=== PATIENT | male | born 1940 | race Caucasian/White ===

== ENCOUNTER 2016-09-04 14:15 | Emergency (ER) | payer OTHER ==
[~2016-09-04] VITALS: Ht 174 cm; Wt 88.0 kg
[~2016-09-04 14:15] MED LIST: ASPI81TA82 PO; MECL25 PO
[2016-09-04 14:20] VITALS: BP 125/90; PULSE 83; RESP 16; TEMP 98.1; O2SAT 97
[2016-09-04] MEDS ORDERED: PRAV10TA PO (14:39)
[2016-09-04] MEDS ORDERED: ASPI81TA11 PO (14:39)
[2016-09-04] MEDS ORDERED: TYLE325T PO (15:02)
--- NOTE | 2016-09-04 15:08 | PD ---
HPI Chief Complaint: Musculoskeletal Complaint Time Seen by Provider: 14:50 Travel History International Travel<30 days: No Contact w/Intl Traveler<30days: No Traveled to known affect area: No History of Present Illness HPI 76-year-old male presents to the emergency room for evaluation of left lower extremity pain for the past several weeks. It is localized to the left greater trochanter and radiates laterally down the left leg and into the foot. He has been taking Aleve twice daily without any significant relief in symptoms. Patient states pain has been gradually worsening. It is usually intermittent but it bothered him a lot last night. He [facility] this [facility] who recommended he come to the emergency room for evaluation. Pain is worsened with activity and range of motion of the knee and hip. Denies back pain, fall, trauma, or injury to the back or hip. Denies lower extremity paresthesias. PFSH Past Medical History High Cholesterol: Yes Diminished Hearing: No Immunizations Current: Yes Tetanus Vaccination: < 5 Years Past Surgical History Surgical History: No Previous Surgery Social History Alcohol Use: No Tobacco Use: No Substance Use: No Allergies-Medications (Allergen,Severity, Reaction): Coded Allergies: No Known Allergies (Unverified , 09/04/16) Reported Meds & Prescriptions Reported Meds & Active Scripts Active Tylenol (Acetaminophen) 325 Mg Tab 650 Mg PO Q6H PRN Reported Pravastatin 10 Mg Tab Unknown Dose PO HS Aspirin EC (Aspirin) 81 Mg Tabdr 81 Mg PO DAILY Review of Systems Except as stated in HPI: all other systems reviewed are Neg Physical Exam Narrative GENERAL: Well-nourished, well-developed male in no acute distress. Afebrile. Ambulatory. SKIN: Focused skin assessment warm/dry. HEAD: Normocephalic. EYES: No scleral icterus. No injection or drainage. NECK: Supple, trachea midline. No JVD or lymphadenopathy. CARDIOVASCULAR: Regular rate and rhythm without murmurs, gallops, or rubs. RESPIRATORY: Breath sounds equal bilaterally. No accessory muscle use. BACK: No CVA tenderness. No rash. No point tenderness on palpation of the spine. EXTREMITY: No bony tenderness to palpation. Full range of motion in all joints. No noticeable edema. 2+ dorsalis pedis pulse. Data Data Last Documented VS Vital Signs Date Time Temp Pulse Resp B/P Pulse Ox O2 Delivery O2 Flow Rate FiO2 09/04/16 14:34 16 09/04/16 14:20 98.1 16 125/90 97 Orders Ketorolac Inj (Toradol Inj) (09/04/16 15:15) [facility] Medical Decision Making Medical Screen Exam Complete: Yes Emergency Medical Condition: Yes Medical Record Reviewed: Yes Differential Diagnosis Sciatica versus muscle spasm versus trochanteric bursitis Narrative Course 76-year-old male presents to the emergency room for evaluation of left lower extremity pain for the past several weeks. It is gradually worsening. Patient reports that is difficult to localize and explain but describes it mostly as a burning sensation running down his entire left leg. Occasionally localizes to the greater trochanter or the left knee. He denies any trauma or injury to the back or lower extremity. Patient has been ambulatory since onset of symptoms. LLE is neurovascularly intact with 2+ dorsalis pedis pulse. Full range of motion in all joints. Given description of burning down the entire leg, this is likely a sciatica exacerbation. Patient was given Toradol in the emergency room. Discharged with prescription for Tylenol. Told to follow-up with a primary care physician if symptoms persist for outpatient imaging. Told to return sooner for worsening symptoms. He understands and agrees plan. Diagnosis Primary Impression: Sciatica of left side Referrals: [facility] Patient Instructions: General Instructions Departure Forms: Tests/Procedures Additional Instructions: Rest and drink plenty of fluids. Tried to avoid NSAIDs such as Aleve Take Tylenol as directed, as needed for pain. Apply ice to the affected area for 20 minutes at a time, as needed for pain and swelling. Follow-up with a primary care physician. Return to the emergency room for worsening symptoms. Med/Other Pt SpecificInfo: Prescription(s) given Scripts Acetaminophen (Tylenol)325 Mg Wmb280 Mg PO Q6H PRN (PAIN SCALE 1 TO 10) #21 TAB Ref 0 Prov:Leni Mckeon MD 09/04/16 Disposition: 01 DISCHARGE HOME Condition: Stable Marbella Velacso Sep 04, 2016 15:08
[2016-09-04] MEDS ORDERED: KETOROLAC TROMETHAMINE 60 MG/2 ML (IM) VIAL IM ONE (15:15)
== END 2016-09-04 15:10 | disposition home or self-care (01) ==
LOC: PHEFT 14:15
DX: M54.32 Sciatica, left side (principal); E78.00 Pure hypercholesterolemia, unspecified
CPT/HCPCS: 96372; 99284; J1885

== ENCOUNTER 2016-11-24 11:22 | Inpatient (IN) | payer OTHER ==
[~2016-11-24] VITALS: Ht 174 cm; Wt 83.0 kg
[2016-11-24] VITALS (9 sets, daily range): BP systolic 112–154; BP diastolic 73–92; PULSE 74–100; RESP 15–20; TEMP 98.2–98.7; O2SAT 94–98
[~2016-11-24 11:22] MED LIST changes: +ASPI81TA11 PO; -ASPI81TA82 PO; -MECL25 PO; +PRAV10TA PO; +TYLE325T PO
[2016-11-24 11:58] LABS: AUTOMATED NEUTROPHIL # 6.7 TH/MM3 (1.8-7.7); BASOPHIL # 0.2 TH/MM3 (0-0.2); BASOPHIL % 1.9 % (0.0-2.0); EOSINOPHIL # 0.1 TH/MM3 (0-0.4); EOSINOPHIL % 0.7 % (0.0-4.0); HEMATOCRIT 43.1 % (39.0-51.0); LYMPH % 11.5 % (9.0-44.0); MEAN CELL VOLUME 84.7 FL (80.0-100.0); MEAN CORPUSCULAR HEMOGLOBIN 28.2 PG (27.0-34.0); MEAN CORPUSCULAR HGB CONC 33.3 % (32.0-36.0); MONO % 7.7 % (0.0-8.0); NEUT % 78.2 % (16.0-70.0); PLATELET COUNT 284 TH/MM3 (150-450); RED BLOOD COUNT 5.09 MIL/MM3 (4.50-5.90); RED CELL DISTRIBUTION WIDTH 13.2 % (11.6-17.2); WHITE BLOOD COUNT 8.7 TH/MM3 (4.0-11.0)
[2016-11-24] MEDS ORDERED: SODIUM CHLORIDE 0.9% FLUSH 10 ML FLUSH IVF PRN (12:00)
[2016-11-24] MEDS ORDERED: ASPIRIN 81 MG CHEW TAB PO ONE (12:00)
--- NOTE | 2016-11-24 12:00 | PD ---
HPI Chief Complaint: Chest Pain Time Seen by Provider: 11:45 Travel History International Travel<30 days: No Contact w/Intl Traveler<30days: No Traveled to known affect area: No History of Present Illness HPI 76-year-old male with history of hyperlipidemia here for evaluation of chest pain and generalized malaise. Symptoms started this morning after waking up. He has had intermittent left-sided chest pain which she describes as sharp/ache/ dull. There are no modifying factors to this pain. He states that when he first experienced the pain this morning he became diaphoretic. He reports that when he stands up he feels lightheaded. He denies any known history of cardiac disease. He is a nonsmoker. He is unsure of any family history of cardiac disease. He denies fevers. No cough or upper respiratory symptoms. No history of DVT or PE. No vomiting or diarrhea. No paresthesias or motor deficits. He is currently chest pain free. PFSH Past Medical History High Cholesterol: Yes Diminished Hearing: No Immunizations Current: Yes Social History Alcohol Use: No Tobacco Use: No Substance Use: No Allergies-Medications (Allergen,Severity, Reaction): Coded Allergies: No Known Allergies (Unverified , 11/24/16) Reported Meds & Prescriptions Reported Meds & Active Scripts Active Reported Pravastatin 10 Mg Tab Unknown Dose PO HS Review of Systems Except as stated in HPI: all other systems reviewed are Neg Physical Exam Narrative GENERAL: Well-developed, well-nourished, awake, alert, no apparent distress. SKIN: Focused skin assessment warm/dry. No pallor. HEAD: Atraumatic. Normocephalic. EYES: Pupils equal and round. No scleral icterus. No injection or drainage. ENT: Mucous membranes pink and moist. NECK: Trachea midline. No JVD. CARDIOVASCULAR: Regular rate and rhythm. Distal pulses brisk and equal bilaterally. RESPIRATORY: No accessory muscle use. Clear to auscultation. Breath sounds equal bilaterally. GASTROINTESTINAL: Abdomen soft, non-tender, nondistended. MUSCULOSKELETAL: No obvious deformities. No clubbing. No cyanosis. No edema. NEUROLOGICAL: Awake and alert. No obvious cranial nerve deficits. Motor grossly within normal limits. Normal speech. PSYCHIATRIC: Appropriate mood and affect; insight and judgment normal. Data Data Last Documented VS Vital Signs Date Time Temp Pulse Resp B/P (MAP) Pulse Ox O2 Delivery O2 Flow Rate FiO2 8/22/17 12:47 76 20 145/92 (109) 98 Nasal Cannula 2.00 11/24/16 11:27 98.2 Orders Orders Basic Metabolic Panel (Bmp) (11/24/16 11:49) Ckmb (Isoenzyme) Profile (11/24/16 11:49) Complete Blood Count With Diff (11/24/16 11:49) Magnesium (Mg) (11/24/16 11:49) Prothrombin Time / Inr (Pt) (11/24/16 11:49) Act Partial Throm Time (Ptt) (11/24/16 11:49) Troponin I (11/24/16 11:49) Chest, Single Ap (11/24/16 11:49) Ecg Monitoring (11/24/16 11:49) Bilateral Bp Monitoring (11/24/16 11:49) Iv Access Insert/Monitor (11/24/16 11:49) Oximetry (11/24/16 11:49) Oxygen Administration (11/24/16 11:49) Aspirin Chew (Aspirin Chew) (11/24/16 12:00) Sodium Chloride 0.9% Flush (Ns Flush) (11/24/16 12:00) Urinalysis - C+S If Indicated (11/24/16 11:49) CKMB (11/24/16 11:50) CKMB% (11/24/16 11:50) Heparin Inj (Heparin Inj) (11/24/16 13:00) Heparin Inj (Heparin Inj) (11/24/16 19:00) Heparin Inj (Heparin Inj) (11/24/16 19:00) Heparin-D5w 25,000 U/250 Ml (Heparin-D5w (11/24/16 13:00) Act Partial Throm Time (Ptt) (11/24/16 12:46) Prothrombin Time / Inr (Pt) (11/24/16 12:46) Cbc No Diff, Includes Plts (11/24/16 12:46) Cbc No Diff, Includes Plts (11/27/16 06:00) Act Partial Throm Time (Ptt) (11/24/16 19:46) Occult Blood (Hemoccult) Stool (11/24/16 12:46) Cardiac Catheterization (11/24/16 ) Consent (11/24/16 12:47) ^ Preps (11/24/16 12:47) ^ Insert Iv (11/24/16 12:47) Diet Npo Except Meds (11/24/16 Lunch) Sodium Chlor 0.9% 1000 Ml Inj (Ns 1000 M (11/24/16 12:47) Aspirin (Aspirin) (11/24/16 13:00) Fentanyl Inj (Fentanyl Inj) (11/24/16 13:00) [employer] General Manager / Telemetry [email or web address] (11/24/16 12:47) Labs Laboratory Tests Test 11/24/16 11:50 White Blood Count 8.7 TH/MM3 Red Blood Count 5.09 MIL/MM3 Hemoglobin 14.4 GM/DL Hematocrit 43.1 % Mean Corpuscular Volume 84.7 FL Mean Corpuscular Hemoglobin 28.2 PG Mean Corpuscular Hemoglobin Concent 33.3 % Red Cell Distribution Width 13.2 % Platelet Count 284 TH/MM3 Mean Platelet Volume 9.3 FL Neutrophils (%) (Auto) 78.2 % Lymphocytes (%) (Auto) 11.5 % Monocytes (%) (Auto) 7.7 % Eosinophils (%) (Auto) 0.7 % Basophils (%) (Auto) 1.9 % Neutrophils # (Auto) 6.7 TH/MM3 Lymphocytes # (Auto) 1.0 TH/MM3 Monocytes # (Auto) 0.7 TH/MM3 Eosinophils # (Auto) 0.1 TH/MM3 Basophils # (Auto) 0.2 TH/MM3 CBC Comment AUTO DIFF Differential Total Cells Counted 100 Neutrophils % (Manual) 79 % Lymphocytes % 15 % Monocytes % 5 % Eosinophils % 1 % Neutrophils # (Manual) 6.9 TH/MM3 Differential Comment FINAL DIFF MANUAL Prothrombin Time 11.1 SEC Prothromb Time International Ratio 1.0 RATIO Activated Partial Thromboplast Time 28.4 SEC Blood Urea Nitrogen 20 MG/DL Creatinine 0.94 MG/DL Random Glucose 103 MG/DL Calcium Level 9.3 MG/DL Magnesium Level 2.4 MG/DL Sodium Level 137 MEQ/L Potassium Level 4.3 MEQ/L Chloride Level 103 MEQ/L Carbon Dioxide Level 26.2 MEQ/L Anion Gap 8 MEQ/L Estimat Glomerular Filtration Rate 78 ML/MIN Total Creatine Kinase 186 U/L Creatine Kinase MB 1.8 NG/ML Troponin I 0.22 NG/ML MDM Medical Decision Making Medical Screen Exam Complete: Yes Emergency Medical Condition: Yes Interpretation(s) EKG: Sinus, rate 77, leftward axis, LVH, slight ST depressions in lateral leads likely secondary to LVH, no ST segment elevations. Differential Diagnosis ACS, pneumothorax, pericarditis, PE, pneumonia, metabolic abnormality, anemia, UTI Narrative Course Vital signs show heart rate 80, blood pressure 146/91, pulse ox 98% on room air , oral temp of 98.2F. CBC shows WBC 8.7, hemoglobin 14.4, hematocrit 43.1, platelets 284, neutrophils 78.2%. BMP is unremarkable. Troponin is 0.22. Chest x-ray interpreted by me shows no infiltrate, no free air, no pneumothorax. Patient was given a full aspirin shortly after arriving to the emergency department. He has been chest pain-free while in the emergency department. Case discussed with on-call paint specialist Dr. Bueno. Patient will be started on a heparin drip and transferred to the [facility] for cardiac cath today. Case discussed with hospitalist Dr. Cervantes who will admit the patient to her service. Critical Care Narrative Aggregate critical care time was 30 minutes. Time to perform other separately billable procedures was not included in the critical care time. My time did not include minutes spent treating any other patients simultaneously or on activities that did not directly contribute to the patient's treatment. The services I provided to this patient were to treat and/or prevent clinically significant deterioration that could result in: , permanent disability, cardiac arrest, worsening clinical condition I provided critical care services requiring my management, as noted below: Chart data review, documentation time, medication orders and management, vital sign assessments/reviewing monitor data, ordering and reviewing lab tests, ordering and interpreting/reviewing x-rays and diagnostic studies, care of the patient and discussion of the patient with the admitting physicians. Diagnosis Primary Impression: NSTEMI (non-ST elevated myocardial infarction) Additional Impression: Chest pain Qualified Codes: R07.9 - Chest pain, unspecified Admitting Information Admitting Physician Requests: it Remberto Tanner MD Nov 24, 2016 12:00
[2016-11-24 12:05] LABS: HEMO FLAGS AUTO DIFF
[2016-11-24 12:06] LABS: CHLORIDE 103 MEQ/L (98-107); POTASSIUM 4.3 MEQ/L (3.5-5.1); SODIUM (NA) 137 MEQ/L (136-145)
[2016-11-24 12:11] LABS: ANION GAP 8 MEQ/L (5-15); APTT (PATIENT) 28.4 SEC (24.3-30.1); BICARBONATE 26.2 MEQ/L (21.0-32.0); BLOOD UREA NITROGEN 20 MG/DL (7-18); MAGNESIUM 2.4 MG/DL (1.5-2.5); PROTHROMBIN TIME - PATIENT 11.1 SEC (9.8-11.6)
[2016-11-24 12:14] LABS: GLOMERULAR FILTRATION RATE 78 ML/MIN (>89)
[2016-11-24 12:18] LABS: CREATINE KINASE 186 U/L (39-308)
[2016-11-24 12:26] LABS: EOSINOPHILS 1 % (0-4); NEUTROPHIL # MANUAL DIFF 6.9 TH/MM3 (1.8-7.7); POLYS (SEG NEUTROPHILS) 79 % (16-70); WBC DIFF SAMPLE 100
[2016-11-24 12:27] LABS: SCAN/DIFF FINAL DIFF MANUAL
[2016-11-24 12:30] LABS: CKMB 1.8 NG/ML (0.5-3.6)
--- NOTE | 2016-11-24 12:50 | RADRPT ---
EXAM DATE/TIME: 11/24/2016 12:21 [facility] COMPARISON: CHEST SINGLE AP, October 07, 2012, 10:15. INDICATIONS : Chest pain/pressure. MEDICAL HISTORY : Hypercholesterolemia. SURGICAL HISTORY : None. ENCOUNTER: Initial ACUITY: 2 days PAIN SCORE: 8/10 LOCATION: Left chest FINDINGS: A single portable frontal view the chest is lordotic in position. Heart is mildly enlarged and stable . There is a lobulated contour to the right hilum which is a new finding from the prior study. Many l ungs are clear. No effusions. A degenerative lumbar spine. CONCLUSION: 1. Somewhat lobular contour to the right hilum. Suggest PA and lateral views of the chest to further evaluate. 2. Mild cardiomegaly. Renzo Centeno Jr., MD on November 24, 2016 at 12:47 Board Certified Radiologist. This report was verified electronically.
[2016-11-24] MEDS ORDERED: ASPIRIN 325 MG TAB PO SCH (13:00)
[2016-11-24] MEDS ORDERED: HEPARIN SODIUM - IV 10,000 UNITS/10 ML VIAL IV ONE (13:00)
[2016-11-24] MEDS ORDERED: HEPARIN-D5W 25,000 U/250 ML 250 ML IV PRN (13:00)
[2016-11-24] MEDS ORDERED: SODIUM CHLORIDE 0.9% FLUSH 10 ML FLUSH IV FLUSH PRN (13:45)
[2016-11-24] MEDS ORDERED: IOHEXOL 350 MG/ML 50 ML BTL (for Cath Lab) OTHER ONE (15:15)
[2016-11-24] MEDS ORDERED: HEPARIN-NS/PF INJ 1,000 ML ONE (15:21)
--- NOTE | 2016-11-24 15:54 | MB ---
cc: CAMERON ROBISON MD DATE OF CONSULTATION: 11/24/2016 REASON FOR CONSULTATION: Non-ST elevation myocardial infarction. HISTORY OF PRESENT ILLNESS: Mr. Alvarez is a pleasant 76 year-old who presented with episodes of chest pain. He reports that he had a left-sided chest discomfort that lasted several minutes. There were no real precipitating or relieving factors. It was associated with diaphoresis. When he stood he became a bit light headed. The patient is currently pain free. He has not had prior episodes. PAST MEDICAL HISTORY: Past medical history significant for hyperlipidemia, Murmur, recent esophagogastroduodenoscopy. FAMILY HISTORY: Negative for coronary artery disease. SOCIAL HISTORY: The patient is and does not drink or smoke. REVIEW OF SYSTEMS Except as mentioned in HPI all 12 systems are negative. PHYSICAL EXAMINATION: VITAL SIGNS: Vital signs are 76, 20, 145/92. IN GENERAL: In general he is a well appearing man who is in no apparent distress. NECK: His neck is free from jugular venous distention. LUNGS: The lungs are bilaterally clear to auscultation. CARDIOVASCULAR SYSTEM: He has harsh systolic murmur, no rubs or gallops were appreciated. ABDOMEN: The abdomen is soft. EXTREMITIES: The extremities are free from edema. LABORATORY VALUES: Significant for a creatinine 0.94 and a troponin of 0.22. EKG shows normal sinus rhythm with ST depression concerning for ischemia. IMPRESSION Non-ST elevation SD - the patient does have elevated troponin, chest pain and EKG changes all concerning for an acute ischemic event. He is currently pain-free. At this point the patient is felt to be best suited by further evaluation with a cardiac catheterization. Murmur- His troponin and ECG's are felt too prohibitive for this stress testing. Thus at this point we have discussed other risks, benefits and alternatives to catheterization and he and his family are agreeable despite several percent risk for , SD, CVA and other. Hyperlipidemia - the patient will have his lipids checked. Hypertension - the patient has diastolic has been a bit high. He will be started on beta-magali for his hypertension and non-ST elevation SD. Cameron Robison M.D. KALI/patrick Quinteros: 11/24/2016/3:15 PM /3:25 PM UBALDO
--- NOTE | 2016-11-24 16:26 | CATHPROC ---
[employer] HIS Report Study Information Study Number Admission Scheduled Start Study Start [id number] Nov 24 2016 11:22AM 11/24/2016 Nov 24 2016 3:13PM [place] Service Cardiac Catheterization Admit Source Facility Department Emergency department [facility] - Strainer Cleaner Physician and Clinical Staff Initial MD Bueno, Mera Machine Adjuster Leader Chai Myers,CEASAR Recorder Lorraine Sandoval,RT(R) (BS) Scrub Gerald Taylor,RT(R) Procedures Performed Procedure Location (Site) Vessel Name Coronary Angiograms LCA Left Coronary Coronary Angiograms RCA Right Coronary L Heart Cath Wire insertion Fem Art (right) Femoral Art Equipment Time Hearing Aid Technician Description Size Mfg Part Number Used/Scraped TRANSDUCER, TRCore InformaticsAVE [id number] 15:15 PATHAK UREÑA * Used W/STOCKCOCK *[id number] [id number] *[id number] *[id number] *[id number] WIRE, HYDROSTEER 150CM [id number] 16:08 DAIG/ST. GAEL MEDICAL 150CM Used ANGLED GLIDE *[id number] 15:15 MED[employer] PACK, CCL CUSTOM * Used *[id number] 15:15 eEvent PACER PEN, SKIN DUAL W/ RULER * Used *[id number] 15:15 [employer] SHEATH, FR4.5 PRELUDE 11CM FR 4.5 Used [id number] 15:15 [employer] WIRE, 3MMJ .035 180CM 180CM Used *[id number] 15:51 [employer] WIRE, 3MMJ .035 180CM 180CM Used *[id number] 15:42 [employer] WIRE, EXCHANGE 260CM .035 260CM Used *[id number] 15:49 [employer] WIRE, STRAIGHT TIP .035 * Used *[id number] 15:51 [employer] WIRE, STRAIGHT TIP .035 * Used *[id number] 15:15 NAMIC CONTRAST CONTROLLER, SPIKE * Used *[id number] 15:15 NAMIC MANIFOLD, 4 PORT * Used *[id number] 15:15 NYCOMED OMNIPAQUE, 350 MG, 150ML 150ML [id number] Used [id number] 15:15 [employer] BLANKET,WARM AIR CCL * Used *[id number] 15:15 [facility] BLANKET,WARM AIR CCL * Used *[id number] Equipment Model, Serial, Lot Number and Expiration Data Description Model Number Serial Number Lot Number Expiration Date WIRE, EXCHANGE 260CM .035 [id number] 10-02-2018 WIRE, HYDROSTEER 150CM [id number] 09-03-2019 ANGLED GLIDE History: Current Medications Medication Dosage/Unit Route Frequency Last Date/Time Taken ASA History: Allergies Allergy Reaction No Known Allergies History: Risk Factors Family History of Hypertension Dyslipidemia Previous KS Previous Heart Failure Premature CAD Yes Yes No No No Prior Valve Prior PCI Prior CABG Surgery No No No Cerebrovascular Peripheral Artery Chronic Lung On Dialysis Diabetes Disease Disease Disease No No No No No History: Symptoms/Diagnosis Selection Items Chest pain SOB History: Stress Tests Stress or Imaging Studies Performed No History: Other Current Smoker No Labs Hgb (g/dl) Hct (%) WBC (l/cumm) Platelets (thousands) 11.60-17.00 35.00-51.00 4.00-11.00 150.00-450.00 14.4 43.1 8.7 284 Glucose (mg/dl) BUN (mg/dl) Creatinine (mg/dl) BUN:Creatinine (1:x) 74.00-106.00 7.00-18.00 0.50-1.30 10.00-20.00 103 20 0.9 22.2 Na (meq/l) K (meq/l) 136.00-145.00 3.50-5.10 137 4.3 INR (PTT:PT) 0.90-1.10 1 Troponin I (ng/ml) CPK-MB (ng/ML) 0.02-0.05 0.50-3.60 0.22 Not Drawn Medication Medication Total Dose (Bolus/Oral) Medication Total Dosage/Unit 1% XYLOCAINE 20 mL FENTANYL 50 mcg Medications (Bolus/Oral) Medication Time Given Dosage/Unit Administered By Reason FENTANYL 11/24/2016 3:35:18 PM 50 mcg Chai Myers Patient arrived on 50 mcg FENTANYL given by Chai Myers, RN in Left Antecubital via Peripheral IV. 1% XYLOCAINE 11/24/2016 3:35:24 PM 20 mL Mera Bueno Patient arrived on 20 mL 1% XYLOCAINE given by Mera Bueno in Right Groin via Subcutaneous. Medication (Drip) Medication Time Given Dosage/Unit Concentration/Unit Diluent (ml) Solution HEPARIN DRIP STOPPED 11/24/2016 3:10:16 PM 0 units/hr 0 Patient arrived on 0 units/hr HEPARIN DRIP STOPPED. Pump/Drip Flow = 0 ml/hr using [Solution Name]. Chronological Log Time Study Chronological Log 15:10:16 Patient arrived on 0 units/hr HEPARIN DRIP STOPPED. Pump/Drip Flow = 0 ml/hr using [Soluti on Name]. 15:13:35 Patient arrived via Bed. 15:13:36 Patient Name, D.O.B, / Armband Verified By R.N. 15:13:37 Consent signed by the physician and the patient and verified by the Strainer Cleaner staff. 15:13:37 Pre-op and post- op instructions given; patient acknowledges understanding of instructions . 15:13:38 Verbal Stimulation=2 Physical Stimulation=2 Airway=2 Respiration=2 TOTAL=8. (0=absent, 1=l imited, 2=present) 15:15:15 Presedation assessment performed by Strainer Cleaner RN. 15:15:18 Patient has been NPO for Less than 6Hrs. 15:15:18 Skin Breakdown-none per patient. 15:15:31 Patient Warmer Placed on the Table. 15:15:33 Delmis Prominences Protected 15:15:35 A # 20 IV was noted in the Antecubital (left). Grade = 0 Vitals capture started with the following parameters, Patient=Adult, Interval=5 min, Initial P thtxlrs=674 mmHg, 15:20:43 Deflation Rate=5 mmHg, Cuff placed on Right Arm 15:21:21 JNXH=214/90 mmhg, SpO2=95.0 %, Pain=0, Esau=10, Cates=2 15:23:20 HR=78 bpm, BKND=851/96 mmhg, SpO2=94.0 %, Resp=11 B/min, Pain=0, Esau=10, Cates=2 15:25:21 HR=76 bpm, JCGY=860/95 mmhg, SpO2=93.0 %, Resp=7 B/min, Pain=0, Esau=10, Cates=2 15:27:19 HR=77 bpm, UGVT=862/86 mmhg, SpO2=96.0 %, Resp=13 B/min, Pain=0, Esau=10, Cates=2 15:29:05 Bilateral groins prepped with 2% chlorhexidine, and with a 3 min. waiting time. 15:29:49 HR=80 bpm, OSWN=248/89 mmhg, SpO2=95.0 %, Resp=11 B/min, Pain=0, Esau=10, Cates=2 15:31:23 HR=77 bpm, MDZP=452/87 mmhg, SpO2=95.0 %, Resp=11 B/min, Pain=0, Esau=10, Cates=2 15:33:22 HR=78 bpm, FVUC=266/96 mmhg, SpO2=94.0 %, Resp=12 B/min, Pain=0, Esau=10, Cates=2 Time Out. Correct patient, correct procedure,correct physician, power injector loaded with con trast with surgical team 15:33:59 present. Time Out Concurred by MD, individual staff in procedure 15:34:12 Case Start 15:34:24 Vitals capture stopped. Vitals capture started with the following parameters, Patient=Adult, Interval=5 min, Initial Pr antmtm=846 mmHg, 15:34:33 Deflation Rate=5 mmHg, Cuff placed on Right Arm 15:34:56 Pressure channel 1 zeroed. 15:35:10 HR=77 bpm, RKXJ=054/86 mmhg, SpO2=95.0 %, Resp=24 B/min, Pain=0, Esau=10, Cates=2 15:35:18 Patient arrived on 50 mcg FENTANYL given by Chai Myers, RN in Left Antecubital via Jazmine pheral IV. 15:35:24 Patient arrived on 20 mL 1% XYLOCAINE given by Mera Bueno in Right Groin via Subcuta neous. 15:35:33 Reference ECG taken 15:36:58 Access site was Right Femoral Artery. 15:37:03 A SHEATH, FR4.5 PRELUDE 11CM FR 4.5 was advanced into the Fem Art (right) using the Percuta neous technique. Recorded Pressure: Ao, HR=76, Condition=Condition 1 15:37:45 (Aorta) Ao 164/77/108 15:37:53 An injection in the Fem Art (right) was made through the SHEATH, FR4.5 PRELUDE 11CM FR 4.5. 15:38:42 Activated Clotting Time Drawn A PIGTAIL ANG. INFINITI CATHETER FR 4 was advanced over a wire. OMNIPAQUE, 350 MG, 150ML 150ML was used 15:40:13 for injections. 15:40:14 HR=73 bpm, BXBH=055/93 mmhg, SpO2=93.0 %, Resp=11 B/min, Pain=0, Esau=10, Cates=2 15:41:57 ACT (Normal Range 90-180) = 156 15:43:51 Wire removed 15:43:55 A WIRE, STRAIGHT TIP .035 * was inserted via Fem Art (right). 15:45:11 HR=74 bpm, UMCK=780/89 mmhg, SpO2=92.0 %, Resp=16 B/min, Pain=0, Esau=10, Cates=2 15:46:31 Wire removed 15:48:38 A WIRE, STRAIGHT TIP .035 * was inserted via Fem Art (right). 15:49:40 Wire removed 15:49:55 A WIRE, 3MMJ .035 180CM 180CM was inserted via Fem Art (right). 15:50:12 HR=73 bpm, YGLO=871/95 mmhg, SpO2=93.0 %, Resp=17 B/min, Pain=0, Esau=10, Cates=2 15:51:15 Wire removed 15:51:19 A WIRE, 3MMJ .035 180CM 180CM was inserted via Fem Art (right). 15:51:35 Catheter was removed A 3DRC INFINITI CATHETER FR 4 was advanced over a wire. OMNIPAQUE, 350 MG, 150ML 150ML was used for 15:51:36 injections. 15:52:52 Wire removed 15:52:54 A WIRE, STRAIGHT TIP .035 * was inserted via Fem Art (right). 15:55:03 Wire removed 15:55:13 HR=71 bpm, UQTU=360/95 mmhg, SpO2=96.0 %, Resp=7 B/min, Pain=0, Esau=10, Cates=2 15:56:10 A WIRE, 3MMJ .035 180CM 180CM was inserted via Fem Art (right). 15:57:29 The RCA was injected and visualized at various angles. OMNIPAQUE, 350 MG, 150ML 150ML used . After removing the current catheter a JL 4.0 INFINITI CATHETER FR 4 was advanced over a WIRE, 3 MMJ .035 180CM 15:58:27 180CM. 16:00:14 HR=75 bpm, CVOA=004/90 mmhg, SpO2=94.0 %, Resp=15 B/min, Pain=0, Esau=10, Cates=2 16:01:09 The LCA was injected and visualized at various angles. OMNIPAQUE, 350 MG, 150ML 150ML used . 16:05:17 HR=77 bpm, AXTL=954/87 mmhg, SpO2=95.0 %, Resp=12 B/min, Pain=0, Esau=10, Cates=2 After removing the current catheter a 3DRC INFINITI CATHETER FR 4 was advanced over a WIRE, HY DROSTEER 150CM 16:06:41 ANGLED GLIDE 150CM. 16:09:18 Wire removed 16:10:08 A WIRE, HYDROSTEER 150CM ANGLED GLIDE 150CM was inserted via Fem Art (right). 16:10:14 HR=74 bpm, TTQM=876/83 mmhg, SpO2=94.0 %, Resp=10 B/min, Pain=0, Esau=10, Cates=2 16:10:41 Catheter was removed 16:10:42 Wire removed 16:10:55 Case End 16:11:01 Catheter(s) removed without difficulty 16:11:25 No case complications noted. 16:11:27 Cine recording checked. 16:11:36 Bedside Report will be given. 16:11:38 Contrast Scanned 16:11:40 A Left Heart Cath was performed. 16:13:49 Sheath removed; pressure applied to access site. 16:15:15 HR=76 bpm, PTTO=591/92 mmhg, SpO2=95.0 %, Resp=13 B/min, Pain=0, Esau=10, Cates=2 16:20:18 HR=83 bpm, IASA=218/84 mmhg, SpO2=94.0 %, Resp=7 B/min, Pain=0, Esau=10, Cates=2 16:24:38 Sterile dressing applied to site 16:25:17 HR=77 bpm, KDCF=789/85 mmhg, SpO2=94.0 %, Resp=29 B/min, Pain=0, Esau=10, Cates=2 16:25:30 Vitals capture stopped. 16:28:33 Patient moved to stretcher End Study - Contrast Media Used In Study Contrast Total Opened (mL) Total Used (mL) Total Wasted (mL) Omnipaque 50 50 0 End Study - Maximum Contrast Load Max Contrast Load (mL) 477.8 End Study - Radiation Exposure Fluoro Time (minutes) 8.7 End Study - Sheaths Sheaths Pulled By Sheath Hold Time (min) Gerald Taylor End Study - Patient Disposition Complications Transferred To Interventional Outcome No Strainer Cleaner Holding No attempt made
[2016-11-24 16:28] LABS: TOTAL BILIRUBIN ADULT 0.7 MG/DL (0.2-1.0)
[2016-11-24 16:30] LABS: INDIRECT BILIRUBIN 0.6 MG/DL (0.0-0.8)
[2016-11-24] MEDS ORDERED: SODIUM CHLOR 0.9% 1000 ML INJ 1,000 ML IV SCH (16:45)
[2016-11-24] MEDS ORDERED: METOCLOPRAMIDE HCL 10 MG/2 ML VIAL IV PRN (16:45)
[2016-11-24] MEDS ORDERED: ATROPINE SULFATE 1 MG/ML VIAL IV PRN (16:45)
[2016-11-24] MEDS ORDERED: SODIUM CHLOR 0.9% 250 ML INJ 250 ML IV PRN (16:45)
[2016-11-24] MEDS ORDERED: ONDANSETRON HCL 4 MG/2 ML VIAL IV PRN (16:45)
[2016-11-24] MEDS ORDERED: MISC INFORMATION XX ONE (16:45)
--- NOTE | 2016-11-24 16:48 | MA ---
cc: CAMERON ROBISON MD DATE 11/24/2016 INDICATION Non-ST elevation myocardial infarction. PROCEDURES Selective coronary angiography and attempted left heart catheterization. DETAILS OF THE PROCEDURE The patient gave informed consent. He was prepped in the usual sterile fashion. A subcutaneous injection of lidocaine was made in the right inguinal area. Access was achieved into the right femoral artery and a 4 Mauritanian sheath was inserted. An angiogram was obtained through the sheath. An angled 4 Mauritanian pigtail catheter was utilized to initially traverse a somewhat tortuous iliac system and I was subsequently unable to cross the aortic valve with the standard J wire. I did try a straight tip wire. We exchanged out for the 3DRC catheter and again both wires were utilized to attempt to cross the LV. It was very calcific. The 3DRC then did engage the RCA. Angiograms were obtained. We exchanged out for a JL4 in an over the wire manner and then were able to obtain the left coronaries. I did attempt again with the 3DRC and the angled glide wire, however, this was as well not fruitful. The case was subsequently terminated. FINDINGS CORONARY ANATOMY Left main - this vessel has mild disease of about 10%. It branches into an LAD, ramus and circumflex. LAD - this vessel has mild disease proximally of about 10%. In the mid portion there is a 30-50% stenosis. It is not hazy and does appear actually calcific. It is at the bifurcation of the diagonal which is a moderate to large size vessel. The LAD itself does wrap around the apex and is free of other disease distally. Ramus - this is a moderate size vessel that is free of any significant disease. Circumflex - this is a non dominant vessel that gives rise to a moderate size OM. It has mild luminal irregularities. Right coronary artery - this is a hyper dominant vessel that has about 10-20% diffuse disease. CONCLUSIONS 1. Moderate disease of the LAD that will be medically managed. 2. Aortic valve calcification and likely severe aortic stenosis. An echocardiogram will be obtained for further evaluation of this and the ejection fraction. 3. Cameron Robison M.D. KALI/HUBER /4:17 PM /4:23 PM MTDD
--- NOTE | 2016-11-24 18:45 | HHI.HP ---
[facility] Admission Diagnosis NSTEMI, Chest pain Diagnoses: Chief Complaint: Chest pain Travel History International Travel<30 Days: No Contact w/Intl Traveler <30 Da: No Traveled to Known Affected Are: No History of Present Illness Written by Audie Morales, acting as scribe for Dr. Dupont on 11/24/16 at 18: 30. Patient is a 76-year-old male with primary medical history of hyperlipidemia who came into the hospital for complaints of chest pain. Patient states that he woke up sweating and was feeling "yucky." States he feels like he has "flu type of feeling." States when he got up he got dizzy. States he has a little bit of chest pain midsternal area, does not radiate anywhere, it is unrelieved by rest, not aggravated by any movement. Patient was then taken to have cardiac catheterization done by Dr. Bueno. Patient states he is feeling a lot better now. Reports He took about 3 aspirins when he was in the ED. He denies any chest pain, palpitations, dizziness, headache. States he is only taking aspirin, [facility]. Denies any other medical issues. Denies pain and discomfort. Denies SOB/ dyspnea. Denies fevers, chills, n/v/d. Denies dysuria. Review of Systems Except as stated in HPI: all other systems reviewed are Neg Past Family Social History Past Medical History Dyslipidemia Past Surgical History None Reported Medications Reported Meds & Active Scripts Active Reported Pravastatin 10 Mg Tab Unknown Dose PO HS Allergies: Coded Allergies: No Known Allergies (Unverified , 11/24/16) Active Ordered Medications Current Medications Medications (Trade) Dose Ordered Sig/Aleksandra Route Start Time Stop Time Status Last Admin Sodium Chloride 1,000 ml @ 100 mls/hr Q10H IV 11/24/16 12:47 11/29/16 12:46 (Aspirin) 325 mg LIBRARIAN ASSISTANT PO 11/24/16 13:00 11/28/16 12:59 (fentaNYL INJ) 50 mcg LIBRARIAN ASSISTANT IV 11/24/16 13:00 11/28/16 12:59 (NS Flush) 2 ml BID IV FLUSH 11/24/16 21:00 (NS Flush) 2 ml UNSCH PRN IV FLUSH 11/24/16 13:45 (Ecotrin Ec) 325 mg DAILY PO 11/25/16 09:00 (Coreg) 3.125 mg BID PO 11/24/16 21:00 (Lipitor) 10 mg HS PO 11/24/16 21:00 Sodium Chloride 1,000 ml @ 100 mls/hr Q10H IV 11/24/16 16:45 11/24/16 22:44 11/24/16 17:52 (Atropine Inj) 0.5 mg UNSCH PRN IV 11/24/16 16:45 Sodium Chloride 250 ml @ 500 mls/hr ONCE PRN IV 11/24/16 16:45 11/25/16 16:44 (Reglan Inj) 10 mg Q4H PRN IV 11/24/16 16:45 (Zofran Inj) 4 mg Q4H PRN IV 11/24/16 16:45 Family History Denies family medical history of heart disease. Father had colon cancer. Social History Occasional alcohol use Never smoker Denies illicit drug use Physical Exam Vital Signs Vital Signs Date Time Temp Pulse Resp B/P (MAP) Pulse Ox O2 Delivery O2 Flow Rate FiO2 11/24/16 17:45 98.7 83 19 136/88 (104) 96 11/24/16 17:23 96 Room Air 11/24/16 13:21 11/24/16 12:47 76 20 145/92 (109) 98 Nasal Cannula 2.00 11/24/16 11:56 Nasal Cannula 2.00 11/24/16 11:56 78 20 136/91 (106) 96 154/89 (110) 11/24/16 11:56 97 11/24/16 11:27 98.2 80 15 146/91 (109) 98 Physical Exam GENERAL: This is a well-nourished, well-developed patient, in no apparent distress. SKIN: Warm and dry. HEAD: Normocephalic. No temporal or scalp tenderness. EYES: Pupils equal round and reactive. Extraocular motions intact. No scleral icterus. No injection or drainage. ENT: Nose without bleeding. Throat without erythema. Uvula midline. Airway patent. NECK: Trachea midline. CARDIOVASCULAR: Regular rate and rhythm with faint systolic murmurs, no gallops , or rubs. RESPIRATORY: Clear to auscultation. Breath sounds equal bilaterally. No wheezes , rales, or rhonchi. GASTROINTESTINAL: Abdomen soft, non-tender, nondistended. No guarding. Bowel sounds active 4. MUSCULOSKELETAL: Extremities without clubbing, cyanosis, or edema. No joint tenderness, effusion, or edema noted. No calf tenderness. NEUROLOGICAL: Awake and alert. Cranial nerves II through XII intact. Motor and sensory grossly within normal limits.Normal speech. Laboratory Laboratory Tests Test 11/24/16 11:50 White Blood Count 8.7 Red Blood Count 5.09 Hemoglobin 14.4 Hematocrit 43.1 Mean Corpuscular Volume 84.7 Mean Corpuscular Hemoglobin 28.2 Mean Corpuscular Hemoglobin Concent 33.3 Red Cell Distribution Width 13.2 Platelet Count 284 Mean Platelet Volume 9.3 Neutrophils (%) (Auto) 78.2 Lymphocytes (%) (Auto) 11.5 Monocytes (%) (Auto) 7.7 Eosinophils (%) (Auto) 0.7 Basophils (%) (Auto) 1.9 Neutrophils # (Auto) 6.7 Lymphocytes # (Auto) 1.0 Monocytes # (Auto) 0.7 Eosinophils # (Auto) 0.1 Basophils # (Auto) 0.2 CBC Comment AUTO DIFF Differential Total Cells Counted 100 Neutrophils % (Manual) 79 Lymphocytes % 15 Monocytes % 5 Eosinophils % 1 Neutrophils # (Manual) 6.9 Differential Comment FINAL DIFF MANUAL Prothrombin Time 11.1 Prothromb Time International Ratio 1.0 Activated Partial Thromboplast Time 28.4 Blood Urea Nitrogen 20 Creatinine 0.94 Random Glucose 103 Calcium Level 9.3 Magnesium Level 2.4 Sodium Level 137 Potassium Level 4.3 Chloride Level 103 Carbon Dioxide Level 26.2 Anion Gap 8 Estimat Glomerular Filtration Rate 78 Total Bilirubin 0.7 Direct Bilirubin 0.1 Indirect Bilirubin 0.6 Aspartate Amino Transf (AST/SGOT) 26 Alanine Aminotransferase (ALT/SGPT) 21 Alkaline Phosphatase 68 Total Creatine Kinase 186 Creatine Kinase MB 1.8 Troponin I 0.22 Total Protein 8.5 Albumin 3.9 Result Diagram: 11/24/16 1150 11/24/16 1150 Caprini VTE Risk Assessment Caprini VTE Risk Assessment: Mod/High Risk (score >= 2) Caprini Risk Assessment Model Point Value = 1 Point Value = 2 Point Value = 3 Point Value = 5 Age 41-60 Minor surgery BMI > 25 kg/m2 Swollen legs Varicose veins or History of unexplained or recurrent spontaneous Oral contraceptives or hormone replacement Sepsis (< 1 month) Serious lung disease, including pneumonia (< 1 month) Abnormal pulmonary function Acute myocardial infarction Congestive heart failure (< 1 month) History of inflammatory bowel disease Medical patient at bed rest Age 61-74 Arthroscopic surgery Major open surgery (> 45 min) Laparoscopic surgery (> 45 min) Malignancy Confined to bed (> 72 hours) Immobilizing plaster cast Central venous access Age >= 75 History of VTE Family history of VTE Factor V Leiden Prothrombin [id number] Lupus anticoagulant Anticardiolipin antibodies Elevated serum homocysteine Heparin-induced thrombocytopenia Other congenital or acquired thrombophilia Stroke (< 1 month) Elective arthroplasty Hip, pelvis, or leg fracture Acute spinal cord injury (< 1 month) Prophylaxis Regimen Total Risk Factor Score Risk Level Prophylaxis Regimen 0-1 Low Early ambulation 2 Moderate Order ONE of the following: *Sequential Compression Device (SCD) *Heparin 5000 units SQ BID 3-4 Higher Order ONE of the following medications: *Heparin 5000 units SQ TID *Enoxaparin/Lovenox 40 mg SQ daily (WT < 150 kg, CrCl > 30 mL/min) *Enoxaparin/Lovenox 30 mg SQ daily (WT < 150 kg, CrCl > 10-29 mL/min) *Enoxaparin/Lovenox 30 mg SQ BID (WT < 150 kg, CrCl > 30 mL/min) AND/OR *Sequential Compression Device (SCD) 5 or more Highest Order ONE of the following medications: *Heparin 5000 units SQ TID (Preferred with Epidurals) *Enoxaparin/Lovenox 40 mg SQ daily (WT < 150 kg, CrCl > 30 mL/min) *Enoxaparin/Lovenox 30 mg SQ daily (WT < 150 kg, CrCl > 10-29 mL/min) *Enoxaparin/Lovenox 30 mg SQ BID (WT < 150 kg, CrCl > 30 mL/min) AND *Sequential Compression Device (SCD) Assessment and Plan Problem List: (1) Chest pain ICD Code: R07.9 - Chest pain, unspecified Status: Acute (2) NSTEMI (non-ST elevated myocardial infarction) ICD Code: I21.4 - Non-ST elevation (NSTEMI) myocardial infarction Status: Acute Assessment and Plan Patient is a 76-year-old male with primary medical history of hyperlipidemia who came into the hospital for complaints of chest pain. Patient states that he woke up sweating and was feeling "yucky." States he feels like he has "flu type of feeling." States when he got up he got dizzy. States he has a little bit of chest pain midsternal area, does not radiate anywhere, it is unrelieved by rest, not aggravated by any movement. Patient was then taken to have cardiac catheterization done by Dr. Bueno. NSTEMI, Acute Underlying HTN, Diastolic elevation - Cardiac catheterization done by Dr. Bueno, showed moderate disease of the LAD did will be medically managed. 2. Aortic valve calcification and likely aortic stenosis. - Echocardiogram ordered for tomorrow - Carvedilol 3.125 mg by mouth twice a day, atorvastatin 10 mg by mouth at bedtime, aspirin 325 mg daily - Chest x-ray showed somewhat lobular contour to the right helium. Suggest PA and lateral views of the chest to further evaluate. Mild cardiomegaly. - Recheck labs in the morning Hyperlipidemia - Continue atorvastatin 10 mg daily at bedtime DVT prop SCD for now, postprocedure cardiac Catheterization, patient was on heparin drip prior. This note was transcribed by [email or web address] [Ms.Iszenn Morales, [facility]]. I, Dr. Alla Dupont personally performed the history, physical exam, and medical decision making; and confirmed the accuracy of the information in the transcribed note. Authenticated by Dr. Alla Dupont on 11/24/16 at 18:47. Code Status Full code Discussed Condition With Patient, nursing Physician Certification 2 Midnight Certification Type: Admission for Inpatient Services Order for Inpatient Services The services are ordered in accordance with Medicare regulations or non- Medicare payer requirements, as applicable. In the case of services not specified as inpatient-only, they are appropriately provided as inpatient services in accordance with the 2-midnight benchmark. Estimated LOS (days): 2 days is the estimated time the patient will need to remain in the hospital, assuming treatment plan goals are met and no additional complications. Post-Hospital Plan: Home Problem Qualifiers (1) Chest pain: Qualified Codes: R07.9 - Chest pain, unspecified Audie Parnell Nov 24, 2016 18:45 Idalia Dupont MD Nov 24, 2016 18:48
[2016-11-24] MEDS ORDERED: HEPARIN SODIUM - IV 10,000 UNITS/10 ML VIAL IV PRN ×2 (19:00)
[2016-11-24 19:36] LABS: HDL CHOLESTEROL 47.6 MG/DL (40.0-60.0)
[2016-11-24] MEDS: ATORVASTATIN 10 MG TAB PO SCH (21:04)
[2016-11-24] MEDS: CARVEDILOL 3.125 MG TAB PO SCH (21:04)
[2016-11-24] MEDS: SODIUM CHLORIDE 0.9% FLUSH 10 ML FLUSH IV FLUSH SCH (21:05)
[2016-11-25] VITALS (24 sets, daily range): BP systolic 98–129; BP diastolic 68–90; PULSE 70–88; RESP 16–18; TEMP 98–98.5; O2SAT 93–95
[2016-11-25] MEDS: SODIUM CHLOR 0.9% 1000 ML INJ 1,000 ML IV SCH ×2 (02:00→10:01)
[2016-11-25 02:39] LABS: BLOOD, URINE NEG (NEG); COMMENT (UR) CULT NOT INDICATED; CULTURE IF INDICATED CULT NOT INDICATED; GLUCOSE,URINE NEG (NEG); KETONE, URINE NEG (NEG); NITRITE,URINE NEG (NEG); PH, URINE 5.5 (5.0-8.5); URINE COLOR YELLOW (YELLW/STRAW)
--- NOTE | 2016-11-25 06:57 | PD.CARD.PN ---
Subjective Subjective Remarks Pt without complaints Objective Medications Current Medications Medications (Trade) Dose Ordered Sig/Aleksandra Route Start Time Stop Time Status Last Admin Sodium Chloride 1,000 ml @ 100 mls/hr Q10H IV 11/24/16 12:47 11/29/16 12:46 11/25/16 02:00 (Aspirin) 325 mg GIRLS SWIMMING COACH PO 11/24/16 13:00 11/28/16 12:59 (fentaNYL INJ) 50 mcg GIRLS SWIMMING COACH IV 11/24/16 13:00 11/28/16 12:59 (NS Flush) 2 ml BID IV FLUSH 11/24/16 21:00 11/24/16 21:05 (NS Flush) 2 ml UNSCH PRN IV FLUSH 11/24/16 13:45 (Ecotrin Ec) 325 mg DAILY PO 11/25/16 09:00 (Coreg) 3.125 mg BID PO 11/24/16 21:00 11/24/16 21:04 (Lipitor) 10 mg HS PO 11/24/16 21:00 11/24/16 21:04 (Atropine Inj) 0.5 mg UNSCH PRN IV 11/24/16 16:45 Sodium Chloride 250 ml @ 500 mls/hr ONCE PRN IV 11/24/16 16:45 11/25/16 16:44 (Reglan Inj) 10 mg Q4H PRN IV 11/24/16 16:45 (Zofran Inj) 4 mg Q4H PRN IV 11/24/16 16:45 Vital Signs / I&O Vital Signs Date Time Temp Pulse Resp B/P (MAP) Pulse Ox O2 Delivery O2 Flow Rate FiO2 11/25/16 06:00 75 11/25/16 05:05 76 11/25/16 04:00 74 11/25/16 03:00 98.2 71 16 126/79 (95) 95 11/25/16 03:00 73 11/25/16 02:00 74 11/25/16 01:00 72 11/25/16 00:00 74 11/24/16 23:00 98.3 75 16 112/73 (86) 94 11/24/16 23:00 74 11/24/16 22:00 78 11/24/16 21:00 100 11/24/16 20:00 80 11/24/16 19:00 78 11/24/16 19:00 98.3 79 18 118/83 (95) 96 11/24/16 17:45 98.7 83 19 136/88 (104) 96 11/24/16 17:23 96 Room Air 11/24/16 13:21 11/24/16 12:47 76 20 145/92 (109) 98 Nasal Cannula 2.00 11/24/16 11:56 Nasal Cannula 2.00 11/24/16 11:56 78 20 136/91 (106) 96 154/89 (110) 11/24/16 11:56 97 11/24/16 11:27 98.2 80 15 146/91 (109) 98 I/O 11/24/16 11/24/16 11/24/16 11/25/16 11/25/16 11/25/16 07:00 15:00 23:00 07:00 15:00 23:00 Intake Total 1602 ml Output Total 800 ml Balance 802 ml Intake Oral 480 ml IV Total 1122 ml Output Urine Total 800 ml Physical Exam GENERAL: Well developed, well nourished. No acute distress. HEENT: Jugular venous pressure is normal. CHEST: Lungs clear to auscultation bilaterally. Unlabored respiratory effort. CARDIAC: Regular rate and rhythm, harsh systolic murmur ABDOMEN: Soft, nontender, no hepatosplenomegaly. Bowel sounds present. EXTREMITIES: No clubbing, cyanosis, or edema. Groin looks great 2+ DP Laboratory Laboratory Tests Test 11/24/16 11:50 11/24/16 22:39 11/25/16 02:20 White Blood Count 8.7 TH/MM3 Red Blood Count 5.09 MIL/MM3 Hemoglobin 14.4 GM/DL Hematocrit 43.1 % Mean Corpuscular Volume 84.7 FL Mean Corpuscular Hemoglobin 28.2 PG Mean Corpuscular Hemoglobin Concent 33.3 % Red Cell Distribution Width 13.2 % Platelet Count 284 TH/MM3 Mean Platelet Volume 9.3 FL Neutrophils (%) (Auto) 78.2 % Lymphocytes (%) (Auto) 11.5 % Monocytes (%) (Auto) 7.7 % Eosinophils (%) (Auto) 0.7 % Basophils (%) (Auto) 1.9 % Neutrophils # (Auto) 6.7 TH/MM3 Lymphocytes # (Auto) 1.0 TH/MM3 Monocytes # (Auto) 0.7 TH/MM3 Eosinophils # (Auto) 0.1 TH/MM3 Basophils # (Auto) 0.2 TH/MM3 CBC Comment AUTO DIFF Differential Total Cells Counted 100 Neutrophils % (Manual) 79 % Lymphocytes % 15 % Monocytes % 5 % Eosinophils % 1 % Neutrophils # (Manual) 6.9 TH/MM3 Differential Comment FINAL DIFF MANUAL Prothrombin Time 11.1 SEC Prothromb Time International Ratio 1.0 RATIO Activated Partial Thromboplast Time 28.4 SEC 29.0 SEC Blood Urea Nitrogen 20 MG/DL Creatinine 0.94 MG/DL Random Glucose 103 MG/DL Calcium Level 9.3 MG/DL Magnesium Level 2.4 MG/DL Sodium Level 137 MEQ/L Potassium Level 4.3 MEQ/L Chloride Level 103 MEQ/L Carbon Dioxide Level 26.2 MEQ/L Anion Gap 8 MEQ/L Estimat Glomerular Filtration Rate 78 ML/MIN Total Bilirubin 0.7 MG/DL Direct Bilirubin 0.1 MG/DL Indirect Bilirubin 0.6 MG/DL Aspartate Amino Transf (AST/SGOT) 26 U/L Alanine Aminotransferase (ALT/SGPT) 21 U/L Alkaline Phosphatase 68 U/L Total Creatine Kinase 186 U/L Creatine Kinase MB 1.8 NG/ML Troponin I 0.22 NG/ML 0.21 NG/ML Total Protein 8.5 GM/DL Albumin 3.9 GM/DL Triglycerides Level 172 MG/DL Cholesterol Level 172 MG/DL LDL Cholesterol 90 MG/DL HDL Cholesterol 47.6 MG/DL Cholesterol/HDL Ratio 3.61 RATIO Urine Color YELLOW Urine Turbidity CLEAR Urine pH 5.5 Urine Specific [place] 1.033 Urine Protein NEG mg/dL Urine Glucose (UA) NEG mg/dL Urine Ketones NEG mg/dL Urine Occult Blood NEG Urine Nitrite NEG Urine Bilirubin NEG Urine Urobilinogen LESS THAN 2.0 MG/DL Urine Leukocyte Esterase NEG Urine RBC LESS THAN 1 /hpf Urine WBC 4 /hpf Microscopic Urinalysis Comment CULT NOT INDICATED Assessment and Plan Assessment and Plan NSTEMI- cath with moderate disease of LAD- unable to cross aortic valve -secondary MO: valvular vs HTN vs other -optimize meds HTN-BB HL- on statin Valvular heart disease- ECHO today- Dispo- consider d/c pending ECHO results Mera Bueno MD Nov 25, 2016 06:57
--- NOTE | 2016-11-25 08:25 | HHI.PR ---
Subjective Remarks resting comfortably with no distress. denies chest pain or sob. no new complaints. Objective Vitals Vital Signs Date Time Temp Pulse Resp B/P (MAP) Pulse Ox O2 Delivery O2 Flow Rate FiO2 11/25/16 06:00 75 11/25/16 05:05 76 11/25/16 04:00 74 11/25/16 03:00 98.2 71 16 126/79 (95) 95 11/25/16 03:00 73 11/25/16 02:00 74 11/25/16 01:00 72 11/25/16 00:00 74 11/24/16 23:00 98.3 75 16 112/73 (86) 94 11/24/16 23:00 74 11/24/16 22:00 78 11/24/16 21:00 100 11/24/16 20:00 80 11/24/16 19:00 78 11/24/16 19:00 98.3 79 18 118/83 (95) 96 11/24/16 17:45 98.7 83 19 136/88 (104) 96 11/24/16 17:23 96 Room Air 11/24/16 13:21 11/24/16 12:47 76 20 145/92 (109) 98 Nasal Cannula 2.00 11/24/16 11:56 Nasal Cannula 2.00 11/24/16 11:56 78 20 136/91 (106) 96 154/89 (110) 11/24/16 11:56 97 11/24/16 11:27 98.2 80 15 146/91 (109) 98 I/O 11/24/16 11/24/16 11/24/16 11/25/16 11/25/16 11/25/16 07:00 15:00 23:00 07:00 15:00 23:00 Intake Total 1602 ml Output Total 800 ml Balance 802 ml Intake Oral 480 ml IV Total 1122 ml Output Urine Total 800 ml Result Diagram: 11/24/16 1150 11/24/16 1150 Imaging Last Impressions Chest X-Ray 11/24/16 1149 Signed Impressions: Service Date/Time: Thursday, November 24, 2016 12:21 - CONCLUSION: 1. Somewhat lobular contour to the right hilum. Suggest PA and lateral views of the chest to further evaluate. 2. Mild cardiomegaly. Renzo Centeno Jr., MD Objective Remarks GENERAL: This is a well-nourished, well-developed patient, in no apparent distress. CARDIOVASCULAR: Regular rate and regular rhythm without murmurs, gallops, or rubs. RESPIRATORY: Clear to auscultation. Breath sounds equal bilaterally. No wheezes , rales, or rhonchi. GASTROINTESTINAL: Abdomen soft, non-tender, nondistended. Normal, active bowel sounds MUSCULOSKELETAL: Extremities without clubbing, cyanosis, or edema. NEURO: Alert & Oriented x4 to person, place, time, situation. Moves all ext x4 Procedures cardiac cath Medications and IVs Current Medications Aspirin (Aspirin Chew) 324 mg ONCE ONCE PO Last administered on 11/24/16 11: 56; Start 11/24/16 at 12:00; Stop 11/24/16 at 12:01; Status DC Sodium Chloride (NS Flush) 2 ml UNSCH PRN IVF FLUSH AFTER USING IV ACCESS; Start 11/24/16 at 12:00; Stop 11/24/16 at 13:38; Status DC Heparin Sodium (Porcine) (Heparin Inj) 5,000 units ONCE ONCE IV Last administered on 11/24/16 12:59; Start 11/24/16 at 13:00; Stop 11/24/16 at 13:01 ; Status DC Heparin Sodium (Porcine) (Heparin Inj) 5,000 units UNSCH PRN IV APTT LESS THAN 25; Start 11/24/16 at 19:00; Stop 11/24/16 at 19:00; Status DC Heparin Sodium (Porcine) (Heparin Inj) 2,500 units UNSCH PRN IV APTT 25 TO 39; Start 11/24/16 at 19:00; Stop 11/24/16 at 19:00; Status DC Heparin Sodium/ Dextrose 250 ml @ 10.32 mls/ hr TITRATE PRN IV Coagulation management Last administered on 11/24/16 13:01; Start 11/24/16 at 13:00; Stop 11/24/16 at 17:51; Status DC Sodium Chloride 1,000 ml @ 100 mls/hr Q10H IV Last administered on 11/25/16 02:00; Start 11/24/16 at 12:47; Stop 11/29/16 at 12:46 Aspirin (Aspirin) 325 mg ULTRASOUND COORDINATOR PO ; Start 11/24/16 at 13:00; Stop 11/28/16 at 12:59 Fentanyl Citrate (fentaNYL INJ) 50 mcg ULTRASOUND COORDINATOR IV ; Start 11/24/16 at 13:00; Stop 11/28/16 at 12:59 Sodium Chloride (NS Flush) 2 ml BID IV FLUSH Last administered on 11/24/16 21: 05; Start 11/24/16 at 21:00 Sodium Chloride (NS Flush) 2 ml UNSCH PRN IV FLUSH FLUSH AFTER USING IV ACCESS ; Start 11/24/16 at 13:45 Aspirin (Ecotrin Ec) 325 mg DAILY PO ; Start 11/25/16 at 09:00 Carvedilol (Coreg) 3.125 mg BID PO Last administered on 11/24/16 21:04; Start 11/24/16 at 21:00 Atorvastatin Calcium (Lipitor) 10 mg HS PO Last administered on 11/24/16 21:04 ; Start 11/24/16 at 21:00 Heparin Sodium/ Sodium Chloride 1,000 ml @ As Directed STK-MED ONCE .ROUTE ; Start 11/24/16 at 15:21; Stop 11/24/16 at 15:22; Status DC Fentanyl Citrate (fentaNYL INJ) 100 mcg STK-MED ONCE .ROUTE Last administered on 11/24/16 15:22; Start 11/24/16 at 15:22; Stop 11/24/16 at 15:23; Status DC Sodium Chloride 1,000 ml @ 100 mls/hr Q10H IV Last administered on 11/24/16 17:52; Start 11/24/16 at 16:45; Stop 11/24/16 at 22:44; Status DC Miscellaneous Information 1 ONCE ONCE XX ; Start 11/24/16 at 16:45; Stop at 17:51; Status DC Atropine Sulfate (Atropine Inj) 0.5 mg UNSCH PRN IV VAGAL REPONSE; Start at 16:45 Sodium Chloride 250 ml @ 500 mls/hr ONCE PRN IV VAGAL REPONSE; Start 11/24/16 at 16:45; Stop 11/25/16 at 16:44 Metoclopramide HCl (Reglan Inj) 10 mg Q4H PRN IV NAUSEA; Start 11/24/16 at 16: 45 Ondansetron HCl (Zofran Inj) 4 mg Q4H PRN IV NAUSEA; Start 11/24/16 at 16:45 Iohexol (OMNIPAQUE 350 INJ (Live In Housekeeper)) 50 ml STK-MED ONCE OTHER ; Start at 15:15; Stop 11/25/16 at 07:04; Status DC A/P Assessment and Plan A/P NSTEMI, Acute Underlying HTN, Diastolic elevation - Cardiac catheterization done by Dr. Bueno, showed moderate disease of the LAD did will be medically managed. 2. Aortic valve calcification and likely aortic stenosis. - Echocardiogram ordered - - Carvedilol 3.125 mg by mouth twice a day, atorvastatin 10 mg by mouth at bedtime, aspirin 325 mg daily - Chest x-ray showed somewhat lobular contour to the right helium. Mild cardiomegaly. Hyperlipidemia - Continue atorvastatin 10 mg daily at bedtime DVT prop SCD Discharge Planning dc home - pending echo and cardiology clearance. Idalia Dupont MD Nov 25, 2016 08:25
[2016-11-25] MEDS ORDERED: CARV3.125 PO (08:27)
[2016-11-25] MEDS ORDERED: ASPI325T33 PO (08:27)
[2016-11-25] MEDS: ASPIRIN EC 325 MG TABEC PO SCH (10:00)
[2016-11-25] MEDS: SODIUM CHLORIDE 0.9% FLUSH 10 ML FLUSH IV FLUSH SCH ×2 (10:00→21:27)
[2016-11-25] MEDS: CARVEDILOL 3.125 MG TAB PO SCH ×2 (10:00→21:27)
--- NOTE | 2016-11-25 16:53 | ECHRPT ---
Indication: CONCLUSIONS The left ventricular systolic function is low normal with an estimated ejection fraction of 50%. Wall thickness is mildly increased. Normal left ventricular size. No regional wall motiona abnormalities. Mild mitral valve regurgitation. There is trace tricuspid valve regurgitation. The estimated pulmonary arterial pressure is 26 mmHg. Mild aortic valve regurgitation. Probably severe aortic stenosis; multiple transvalvular aortic gradient measurements show a mean gra dient of about 50 mm Hg. The valve is moderately calcified and moderately to severely thickened. BP: / HR: 69 Rhythm: Sinus Technical Quality:Fair FINDINGS LEFT VENTRICLE The left ventricular systolic function is low normal with an estimated ejection fraction of 50%. Wall thickness is mildly increased. Normal left ventricular size. No regional wall motiona abnormalities. RIGHT VENTRICLE Normal right ventricular size and systolic function. LEFT ATRIUM The left atrial size is normal. RIGHT ATRIUM The right atrial size is normal. ATRIAL SEPTUM Normal atrial septal thickness without atrial level shunting by limited color doppler interrogation. AORTA The aortic root and proximal ascending aorta are normal in size on limited imaging. MITRAL VALVE Mild mitral valve regurgitation. AORTIC VALVE Mild aortic valve regurgitation. Probably severe aortic stenosis; multiple transvalvular aortic gradient measurements show a mean gra dient of about 50 mm Hg. The valve is moderately calcified and moderately to severely thickened. TRICUSPID VALVE There is trace tricuspid valve regurgitation. The estimated pulmonary arterial pressure is 26 mmHg. PULMONARY VALVE The pulmonary valve is not well visualized. VESSELS The inferior vena cava is normal in size. PERICARDIUM No pericardial effusion. Michael Duke MD (Electronically Signed) Final Date:25 November 2016 16:52
--- NOTE | 2016-11-25 20:07 | EKG ---
Date Performed: 11/24/2016 Time Performed: 11:41:23 PTAGE: 76 years EKG: Sinus rhythm WITH SINUS ARRHYTHMIA LEFT VENTRICULAR HYPERTROPHY AND ST-T CHANGE ABNORMAL ECG PREVIOUS TRACING : 10/07/2012 09.56 Compared to prior tracing no significant change DOCTOR: Derick Ashraf Interpretating Date/Time 11/25/2016 20:05:33
[2016-11-25] MEDS: ATORVASTATIN 10 MG TAB PO SCH (21:27)
[2016-11-26] VITALS (24 sets, daily range): BP systolic 108–126; BP diastolic 62–82; PULSE 62–80; RESP 16–18; TEMP 97.6–98.5; O2SAT 93–96
[2016-11-26] MEDS: SODIUM CHLOR 0.9% 1000 ML INJ 1,000 ML IV SCH ×2 (04:47→14:47)
--- NOTE | 2016-11-26 07:49 | PD.CARD.PN ---
Subjective Subjective Remarks Pt without complaints Objective Medications Current Medications Medications (Trade) Dose Ordered Sig/Aleksandra Route Start Time Stop Time Status Last Admin Sodium Chloride 1,000 ml @ 100 mls/hr Q10H IV 11/24/16 12:47 11/29/16 12:46 11/25/16 10:01 (Aspirin) 325 mg KNIFE GLAZER PO 11/24/16 13:00 11/28/16 12:59 (fentaNYL INJ) 50 mcg KNIFE GLAZER IV 11/24/16 13:00 11/28/16 12:59 (NS Flush) 2 ml BID IV FLUSH 11/24/16 21:00 11/25/16 21:27 (NS Flush) 2 ml UNSCH PRN IV FLUSH 11/24/16 13:45 (Ecotrin Ec) 325 mg DAILY PO 11/25/16 09:00 11/25/16 10:00 (Coreg) 3.125 mg BID PO 11/24/16 21:00 11/25/16 21:27 (Lipitor) 10 mg HS PO 11/24/16 21:00 11/25/16 21:27 (Atropine Inj) 0.5 mg UNSCH PRN IV 11/24/16 16:45 (Reglan Inj) 10 mg Q4H PRN IV 11/24/16 16:45 (Zofran Inj) 4 mg Q4H PRN IV 11/24/16 16:45 Vital Signs / I&O Vital Signs Date Time Temp Pulse Resp B/P (MAP) Pulse Ox O2 Delivery O2 Flow Rate FiO2 11/26/16 06:00 62 11/26/16 05:00 68 11/26/16 04:00 64 11/26/16 03:00 67 11/26/16 03:00 97.9 69 16 115/71 (86) 94 11/26/16 02:00 65 11/26/16 01:00 66 11/26/16 00:00 78 11/25/16 23:00 70 11/25/16 23:00 98.0 72 16 122/76 (91) 95 11/25/16 22:00 70 11/25/16 21:00 70 11/25/16 20:00 74 11/25/16 19:00 98.5 74 18 98/68 (78) 93 11/25/16 19:00 88 11/25/16 18:07 81 11/25/16 17:00 80 11/25/16 16:00 73 11/25/16 15:00 70 11/25/16 15:00 98.3 74 16 129/90 (103) 94 11/25/16 14:00 86 11/25/16 13:33 79 11/25/16 12:00 82 11/25/16 11:00 98.3 78 16 112/68 (83) 94 11/25/16 11:00 78 11/25/16 10:00 78 11/25/16 09:06 77 11/25/16 08:00 75 I/O 11/25/16 11/25/16 11/25/16 11/26/16 11/26/16 11/26/16 07:00 15:00 23:00 07:00 15:00 23:00 Intake Total 1602 ml 977 ml 480 ml Output Total 800 ml 800 ml 1125 ml Balance 802 ml 177 ml -645 ml Intake Oral 480 ml 480 ml 480 ml IV Total 1122 ml 497 ml Output Urine Total 800 ml 800 ml 1125 ml # Voids 1 # Bowel Movements 1 Physical Exam GENERAL: Well developed, well nourished. No acute distress. HEENT: Jugular venous pressure is normal. CHEST: Lungs clear to auscultation bilaterally. Unlabored respiratory effort. CARDIAC: Regular rate and rhythm without S3, S4, harsh BRIDGETTE ABDOMEN: Soft, nontender, no hepatosplenomegaly. Bowel sounds present. EXTREMITIES: No clubbing, cyanosis, or edema. Groin looks great 2+ DP Assessment and Plan Assessment and Plan NSTEMI- cath with moderate disease of LAD- unable to cross aortic valve -secondary AR: valvular heart disease Severe - with mean grad 50 mmHg => consult CV Surg - given his presentation this is felt to be urgent HTN-BB HL- on statin Mera Bueno MD Nov 26, 2016 07:49
--- NOTE | 2016-11-26 08:40 | HHI.PR ---
Subjective Remarks f/u; NSTEMI resting comfortably with no distress. denies chest pain or sob. echo report was noted. Objective Vitals Vital Signs Date Time Temp Pulse Resp B/P (MAP) Pulse Ox O2 Delivery O2 Flow Rate FiO2 11/26/16 07:30 97.6 67 18 126/82 (97) 93 11/26/16 07:00 68 11/26/16 06:00 62 11/26/16 05:00 68 11/26/16 04:00 64 11/26/16 03:00 67 11/26/16 03:00 97.9 69 16 115/71 (86) 94 11/26/16 02:00 65 11/26/16 01:00 66 11/26/16 00:00 78 11/25/16 23:00 70 11/25/16 23:00 98.0 72 16 122/76 (91) 95 11/25/16 22:00 70 11/25/16 21:00 70 11/25/16 20:00 74 11/25/16 19:00 98.5 74 18 98/68 (78) 93 11/25/16 19:00 88 11/25/16 18:07 81 11/25/16 17:00 80 11/25/16 16:00 73 11/25/16 15:00 70 11/25/16 15:00 98.3 74 16 129/90 (103) 94 11/25/16 14:00 86 11/25/16 13:33 79 11/25/16 12:00 82 11/25/16 11:00 98.3 78 16 112/68 (83) 94 11/25/16 11:00 78 11/25/16 10:00 78 11/25/16 09:06 77 I/O 11/25/16 11/25/16 11/25/16 11/26/16 11/26/16 11/26/16 06:59 14:59 22:59 06:59 14:59 22:59 Intake Total 1602 ml 977 ml 480 ml Output Total 800 ml 800 ml 1125 ml Balance 802 ml 177 ml -645 ml Intake Oral 480 ml 480 ml 480 ml IV Total 1122 ml 497 ml Output Urine Total 800 ml 800 ml 1125 ml # Voids 1 # Bowel Movements 1 Result Diagram: 11/24/16 1150 11/24/16 1150 Imaging Last Impressions Chest X-Ray 11/24/16 1149 Signed Impressions: Service Date/Time: Thursday, November 24, 2016 12:21 - CONCLUSION: 1. Somewhat lobular contour to the right hilum. Suggest PA and lateral views of the chest to further evaluate. 2. Mild cardiomegaly. Renzo Centeon Jr., MD Objective Remarks GENERAL: This is a well-nourished, well-developed patient, in no apparent distress. CARDIOVASCULAR: Regular rate and regular rhythm . RESPIRATORY: Clear to auscultation. Breath sounds equal bilaterally. No wheezes , rales, or rhonchi. GASTROINTESTINAL: Abdomen soft, non-tender, nondistended. Normal, active bowel sounds MUSCULOSKELETAL: Extremities without clubbing, cyanosis, or edema. NEURO: Alert & Oriented x4 to person, place, time, situation. Moves all ext x4 Procedures cardiac cath Medications and IVs Current Medications Aspirin (Aspirin Chew) 324 mg ONCE ONCE PO Last administered on 11/24/16 11: 56; Start 11/24/16 at 12:00; Stop 11/24/16 at 12:01; Status DC Sodium Chloride (NS Flush) 2 ml UNSCH PRN IVF FLUSH AFTER USING IV ACCESS; Start 11/24/16 at 12:00; Stop 11/24/16 at 13:38; Status DC Heparin Sodium (Porcine) (Heparin Inj) 5,000 units ONCE ONCE IV Last administered on 11/24/16 12:59; Start 11/24/16 at 13:00; Stop 11/24/16 at 13:01 ; Status DC Heparin Sodium (Porcine) (Heparin Inj) 5,000 units UNSCH PRN IV APTT LESS THAN 25; Start 11/24/16 at 19:00; Stop 11/24/16 at 19:00; Status DC Heparin Sodium (Porcine) (Heparin Inj) 2,500 units UNSCH PRN IV APTT 25 TO 39; Start 11/24/16 at 19:00; Stop 11/24/16 at 19:00; Status DC Heparin Sodium/ Dextrose 250 ml @ 10.32 mls/ hr TITRATE PRN IV Coagulation management Last administered on 11/24/16 13:01; Start 11/24/16 at 13:00; Stop 11/24/16 at 17:51; Status DC Sodium Chloride 1,000 ml @ 100 mls/hr Q10H IV Last administered on 11/25/16 10:01; Start 11/24/16 at 12:47; Stop 11/29/16 at 12:46 Aspirin (Aspirin) 325 mg DRY END OPERATOR PO ; Start 11/24/16 at 13:00; Stop 11/28/16 at 12:59 Fentanyl Citrate (fentaNYL INJ) 50 mcg DRY END OPERATOR IV ; Start 11/24/16 at 13:00; Stop 11/28/16 at 12:59 Sodium Chloride (NS Flush) 2 ml BID IV FLUSH Last administered on 11/25/16 21: 27; Start 11/24/16 at 21:00 Sodium Chloride (NS Flush) 2 ml UNSCH PRN IV FLUSH FLUSH AFTER USING IV ACCESS ; Start 11/24/16 at 13:45 Aspirin (Ecotrin Ec) 325 mg DAILY PO Last administered on 11/25/16 10:00; Start 11/25/16 at 09:00 Carvedilol (Coreg) 3.125 mg BID PO Last administered on 11/25/16 21:27; Start 11/24/16 at 21:00 Atorvastatin Calcium (Lipitor) 10 mg HS PO Last administered on 11/25/16 21:27 ; Start 11/24/16 at 21:00 Heparin Sodium/ Sodium Chloride 1,000 ml @ As Directed STK-MED ONCE .ROUTE ; Start 11/24/16 at 15:21; Stop 11/24/16 at 15:22; Status DC Fentanyl Citrate (fentaNYL INJ) 100 mcg STK-MED ONCE .ROUTE Last administered on 11/24/16 15:22; Start 11/24/16 at 15:22; Stop 11/24/16 at 15:23; Status DC Sodium Chloride 1,000 ml @ 100 mls/hr Q10H IV Last administered on 11/24/16 17:52; Start 11/24/16 at 16:45; Stop 11/24/16 at 22:44; Status DC Miscellaneous Information 1 ONCE ONCE XX ; Start 11/24/16 at 16:45; Stop at 17:51; Status DC Atropine Sulfate (Atropine Inj) 0.5 mg UNSCH PRN IV VAGAL REPONSE; Start at 16:45 Sodium Chloride 250 ml @ 500 mls/hr ONCE PRN IV VAGAL REPONSE; Start 11/24/16 at 16:45; Stop 11/25/16 at 16:44; Status DC Metoclopramide HCl (Reglan Inj) 10 mg Q4H PRN IV NAUSEA; Start 11/24/16 at 16: 45 Ondansetron HCl (Zofran Inj) 4 mg Q4H PRN IV NAUSEA; Start 11/24/16 at 16:45 Iohexol (OMNIPAQUE 350 INJ (Bead Filler)) 50 ml STK-MED ONCE OTHER ; Start at 15:15; Stop 11/25/16 at 07:04; Status DC A/P Assessment and Plan A/P NSTEMI, Acute Underlying HTN and aortic stenosis - Cardiac catheterization done by Dr. uBeno, showed moderate disease of the LAD . Aortic valve calcification and likely aortic stenosis. - Carvedilol 3.125 mg by mouth twice a day, atorvastatin 10 mg by mouth at bedtime, aspirin 325 mg daily - Chest x-ray showed somewhat lobular contour to the right helium. Mild cardiomegaly. severe aortic stenosis cardiology follow-up appreciated- CT surgery consulted. Hyperlipidemia - Continue atorvastatin 10 mg daily at bedtime DVT prop SCD Discharge Planning not ready for discharge. awaiting CT surgery evaluation. Idalia Dupont MD Nov 26, 2016 08:40
[2016-11-26] MEDS: CARVEDILOL 3.125 MG TAB PO SCH ×2 (08:56→21:56)
[2016-11-26] MEDS: ASPIRIN EC 325 MG TABEC PO SCH (08:57)
[2016-11-26] MEDS: SODIUM CHLORIDE 0.9% FLUSH 10 ML FLUSH IV FLUSH SCH ×2 (08:57→21:56)
--- NOTE | 2016-11-26 10:21 | RADRPT ---
EXAM DATE/TIME: 11/26/2016 09:25 [facility] COMPARISON: No previous studies available for comparison. INDICATIONS : Preop aortic valve replacement. MEDICAL HISTORY : Hypercholesterolemia. Myocardial infarction. Hearing loss. Coronary artery disease. Aortic valve st enosis. SURGICAL HISTORY : Heart catheterization. ENCOUNTER: Initial ACUITY: 1 day PAIN SCORE: 0/10 LOCATION: Bilateral neck PEAK SYSTOLIC VELOCITIES (cm/sec): ICA/CCA RATIO: Right: 0.8 Left: 1.1 ICA: Right: 78 Left: 79 CCA: Right: 94 Left: 71 ECA: Right: 91 Left: 85 VERTEBRAL: Right: 48 antegrade Left: 31 antegrade Elevated flow velocities and ICA/CCA ratios have been found to correlate with increased degrees of vessel stenosis, calculated as percentage of diameter relative to a normal segment of distal ICA/CCA FINDINGS: RIGHT CAROTID: No significant stenosis is visualized. There is mild calcified and noncalcified plaque in the caroti d bulb. The waveforms are within normal limits. LEFT CAROTID: No significant stenosis is visualized. There is mild calcified and noncalcified plaque in the caroti d bulb. The waveforms are within normal limits. VERTEBRAL ARTERIES: Antegrade flow is seen in both vertebral arteries. MISCELLANEOUS: None. CONCLUSION: 1. Mild atherosclerotic disease bilaterally. However, no significant stenosis is present within eithe r internal carotid artery (less than 50% stenosis). 2. There is antegrade flow in both vertebral arteries. Tawanda Solis MD on November 26, 2016 at 10:18 Board Certified Radiologist. This report was verified electronically.
[2016-11-26] MEDS ORDERED: INSULIN REGULAR (IV INFUSION) 100 UNITS in SODIUM CHLORIDE 0.9% INJ 100 ML IV SCH (15:51)
[2016-11-26] MEDS ORDERED: ceFAZolin 2 GM PREMIX 50 ML IV SCH (16:00)
[2016-11-26] MEDS ORDERED: SODIUM CHLORIDE 0.9% FLUSH 10 ML FLUSH IV FLUSH PRN (16:00)
[2016-11-26] MEDS ORDERED: CEFAZOLIN INJ 500 MG in SODIUM CHLORIDE 0.9% IRR BTL 500 ML IRRIGATION SCH (16:00)
[2016-11-26] MEDS ORDERED: CHLORHEXIDINE GLUCONATE 4% SOLN 120 ML BTL TOPICAL SCH (16:00)
[2016-11-26] MEDS ORDERED: METOPROLOL TARTRATE 25 MG TAB PO SCH (16:00)
[2016-11-26] MEDS ORDERED: PILL SPLITTER OTHER PRN (16:15)
[2016-11-26] MEDS: ATORVASTATIN 10 MG TAB PO SCH (21:56)
[2016-11-27] VITALS (22 sets, daily range): BP systolic 111–150; BP diastolic 67–77; PULSE 60–88; RESP 18; TEMP 97.8–98.9; O2SAT 94–99
[2016-11-27 06:57] LABS: HEMATOCRIT 39.3 % (39.0-51.0); MEAN CELL VOLUME 86.3 FL (80.0-100.0); MEAN CORPUSCULAR HEMOGLOBIN 27.9 PG (27.0-34.0); MEAN CORPUSCULAR HGB CONC 32.3 % (32.0-36.0); PLATELET COUNT 186 TH/MM3 (150-450); RED BLOOD COUNT 4.55 MIL/MM3 (4.50-5.90); RED CELL DISTRIBUTION WIDTH 14.1 % (11.6-17.2); REVIEW FLAG FINAL; WHITE BLOOD COUNT 7.9 TH/MM3 (4.0-11.0)
--- NOTE | 2016-11-27 07:43 | MB ---
cc: EZIO MAJOR MD DATE OF CONSULTATION: 11/26/2016 DATE OF : 1940 REASON FOR CONSULTATION: Pleasant 76-year-old male apparently presented to the emergency room with chest pain. Troponins elevated at 0.2-0.21 with risk factors include age, hyperlipidemia. The patient underwent cardiac cath by Dr. Bueno for [id number] myocardial infarction and chest pain. Cardiac cath revealed about at the left main disease of 10% mild disease of the LAD of 30-50% in the midportion. The right coronary artery disease had 10-20%. Conclusion was moderate disease of the LAD which could be managed medically the there are some had aortic valve calcification likely severe aortic stenosis. Echocardiogram was done which showed a mean gradient of 50 mmHg. The aortic valve area was not date and no noted pulmonary artery pressures of 26 mmHg EF of 50%. We were consulted for aortic valve replacement. STS risk of mortality is 1.84, frailty was 2/4. Patient is being considered for minimally invasive aortic valve replacement. PAST MEDICAL HISTORY: Hyperlipidemia Heart murmur. He has had history of colon polyps PAST SURGICAL HISTORY: Surgeries include colonoscopy. He is rescheduled for colonoscopy in January. ALLERGIES NO KNOWN DRUG ALLERGIES. MEDICATIONS Pravachol Coreg 3.125 daily b.i.d. Aspirin 325 daily. PHYSICIANS: The patient goes to the [place], he using [facility], Dr. Jeremie Ramos. FAMILY HISTORY: Mother from old age. Father from colon cancer. SOCIAL HISTORY: The patient is , two children. 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 REVIEW OF SYSTEMS IN GENERAL: On a review of systems in general no night sweats, fever, heat and cold intolerance. SKIN: No psoriasis, itching or hives. HEAD, EARS, EYES, NOSE, AND THROAT: No blurred vision, hearing loss. RESPIRATORY: Some shortness of breath. No cough. CARDIOVASCULAR SYSTEM: As above in HPI. GASTROINTESTINAL: No diarrhea, vomiting. GENITOURINARY: No burning frequency, urgency. CENTRAL NERVOUS SYSTEM: No history of TIA, CVA, seizure disorder. ENDOCRINOLOGY: No history of diabetes or hypothyroidism. PHYSICAL EXAMINATION: VITAL SIGNS: Blood pressure 108/70 heart rate 70, temperature max 98.1. IN GENERAL: Patient is awake, alert in no acute distress. HEAD, EYES, EARS, NOSE, AND THROAT: head is normocephalic, atraumatic. Pupils equal and reactive. Oral mucosa pink, moist. NECK: Supple. No JVD. CARDIOVASCULAR SYSTEM: Heart sounds S1-S2, grade 3/6 is harsh systolic murmur. No rubs or gallops appreciated. ABDOMEN: The abdomen is soft, nontender, no masses or organomegaly. EXTREMITIES: No cyanosis, clubbing or edema. LABORATORY FINDINGS Shows hemoglobin 14, hematocrit 43, white cell count 8.7, platelet count 284, INR 1.0, sodium 137, potassium 4.3, BUN 20, creatinine 0.94, AST 26, ALT 21, troponin as above. Triglycerides 172, cholesterol 172, LDL of 90. Urinalysis is unremarkable. Chest x-ray Some mild cardiomegaly. The carotid ultrasound some mild disease bilaterally with than 50%. IMPRESSION Very pleasant 76-year-old male with severe aortic stenosis. Planning will be for minimally invasive aortic valve replacement on WednesdayNovember [address] Major. Procedures, alternatives and risks have been discussed with the patient. He is agreeable to proceed in the meantime we will add further lab work. He is to his work up again his STS score is all 1.8 and a frailty score of 2/4. Further discussion and planning as per Dr. Major. DICTATED BY: DARRYL Lincoln Ezio Neville /3:49 PM /7:35 AM
--- NOTE | 2016-11-27 07:54 | PD.CARD.PN ---
Subjective Subjective Remarks Pt without CV complaints Objective Medications Current Medications Medications (Trade) Dose Ordered Sig/Aleksandra Route Start Time Stop Time Status Last Admin Sodium Chloride 1,000 ml @ 100 mls/hr Q10H IV 11/24/16 12:47 11/29/16 12:46 11/25/16 10:01 (fentaNYL INJ) 50 mcg MARKING DEVICES ASSEMBLER IV 11/24/16 13:00 11/28/16 12:59 (Ecotrin Ec) 325 mg DAILY PO 11/25/16 09:00 11/26/16 08:57 (Coreg) 3.125 mg BID PO 11/24/16 21:00 11/26/16 21:56 (Lipitor) 10 mg HS PO 11/24/16 21:00 11/26/16 21:56 (Atropine Inj) 0.5 mg UNSCH PRN IV 11/24/16 16:45 (Reglan Inj) 10 mg Q4H PRN IV 11/24/16 16:45 (Zofran Inj) 4 mg Q4H PRN IV 11/24/16 16:45 (NS Flush) 2 ml BID IV FLUSH 11/26/16 21:00 11/26/16 21:56 (NS Flush) 2 ml UNSCH PRN IV FLUSH 11/26/16 16:00 Cefazolin Sodium 500 mg/Sodium Chloride 505 ml @ 0 mls/hr MARKING DEVICES ASSEMBLER IRRIGATION 11/26/16 16:00 12/03/16 15:59 Cefazolin Sodium/ Dextrose 50 ml @ 150 mls/hr MARKING DEVICES ASSEMBLER IV 11/26/16 16:00 12/03/16 15:59 (Lopressor) 12.5 mg MARKING DEVICES ASSEMBLER PO 11/26/16 16:00 12/03/16 15:59 (Hibiclens 4% Top Soln) 1 applic MARKING DEVICES ASSEMBLER TOPICAL 11/26/16 16:00 12/03/16 15:59 Insulin Human Regular 100 units/ Sodium Chloride 101 ml @ 0 mls/hr Q0M IV 11/26/16 15:51 12/03/16 15:50 (Pill Splitter) 1 ea UNSCH PRN OTHER 11/26/16 16:15 Vital Signs / I&O Vital Signs Date Time Temp Pulse Resp B/P (MAP) Pulse Ox O2 Delivery O2 Flow Rate FiO2 11/27/16 06:00 68 11/27/16 05:00 62 11/27/16 04:00 62 11/27/16 04:00 98.4 71 18 127/74 (91) 96 11/27/16 03:00 64 11/27/16 02:00 64 11/27/16 01:00 68 11/27/16 00:00 97.8 67 18 111/75 (87) 99 11/27/16 00:00 60 11/26/16 23:00 70 11/26/16 22:00 72 11/26/16 21:00 68 11/26/16 20:00 98.5 62 18 119/62 (81) 96 11/26/16 20:00 68 11/26/16 18:00 78 11/26/16 17:00 70 11/26/16 16:00 98.3 68 18 120/75 (90) 95 11/26/16 16:00 70 11/26/16 15:00 75 11/26/16 14:00 72 11/26/16 13:00 72 11/26/16 12:00 98.1 73 18 108/73 (85) 95 11/26/16 12:00 72 11/26/16 11:00 77 11/26/16 10:00 80 11/26/16 09:00 74 11/26/16 08:00 70 I/O 11/26/16 11/26/16 11/26/16 11/27/16 11/27/16 11/27/16 07:00 15:00 23:00 07:00 15:00 23:00 Intake Total 480 ml 480 ml Output Total 1125 ml Balance -645 ml 480 ml Intake Oral 480 ml 480 ml Output Urine Total 1125 ml # Voids 3 # Bowel Movements 1 Physical Exam GENERAL: Well developed, well nourished. No acute distress. HEENT: Jugular venous pressure is normal. CHEST: Lungs clear to auscultation bilaterally. Unlabored respiratory effort. CARDIAC: Regular rate and rhythm, harsh systolic murmur ABDOMEN: Soft, nontender, no hepatosplenomegaly. Bowel sounds present. EXTREMITIES: No clubbing, cyanosis, or edema. Laboratory Laboratory Tests Test 11/26/16 16:45 11/27/16 06:00 Nasal Screen MRSA (PCR) MRSA DETECTED White Blood Count 7.9 TH/MM3 Red Blood Count 4.55 MIL/MM3 Hemoglobin 12.7 GM/DL Hematocrit 39.3 % Mean Corpuscular Volume 86.3 FL Mean Corpuscular Hemoglobin 27.9 PG Mean Corpuscular Hemoglobin Concent 32.3 % Red Cell Distribution Width 14.1 % Platelet Count 186 TH/MM3 Mean Platelet Volume 9.4 FL Assessment and Plan Assessment and Plan NSTEMI- cath with moderate disease of LAD- unable to cross aortic valve -secondary OH: valvular heart disease Severe - with mean grad 50 mmHg => consult CV Surg pending - given his presentation this is felt to be urgent HTN-BB HL- on statin Other- ok for ambulation with assist if asymptomatic Mera Bueno MD Nov 27, 2016 07:54
[2016-11-27] MEDS: CARVEDILOL 3.125 MG TAB PO SCH ×2 (08:03→20:13)
[2016-11-27] MEDS: SODIUM CHLORIDE 0.9% FLUSH 10 ML FLUSH IV FLUSH SCH ×2 (08:04→20:13)
[2016-11-27] MEDS: ASPIRIN EC 325 MG TABEC PO SCH (08:04)
--- NOTE | 2016-11-27 08:32 | HHI.PR ---
Subjective Remarks in no acute distress. denies chest or sob. Objective Vitals Vital Signs Date Time Temp Pulse Resp B/P (MAP) Pulse Ox O2 Delivery O2 Flow Rate FiO2 11/27/16 06:00 68 11/27/16 05:00 62 11/27/16 04:00 62 11/27/16 04:00 98.4 71 18 127/74 (91) 96 11/27/16 03:00 64 11/27/16 02:00 64 11/27/16 01:00 68 11/27/16 00:00 97.8 67 18 111/75 (87) 99 11/27/16 00:00 60 11/26/16 23:00 70 11/26/16 22:00 72 11/26/16 21:00 68 11/26/16 20:00 98.5 62 18 119/62 (81) 96 11/26/16 20:00 68 11/26/16 18:00 78 11/26/16 17:00 70 11/26/16 16:00 98.3 68 18 120/75 (90) 95 11/26/16 16:00 70 11/26/16 15:00 75 11/26/16 14:00 72 11/26/16 13:00 72 11/26/16 12:00 98.1 73 18 108/73 (85) 95 11/26/16 12:00 72 11/26/16 11:00 77 11/26/16 10:00 80 11/26/16 09:00 74 I/O 11/26/16 11/26/16 11/26/16 11/27/16 11/27/16 11/27/16 07:00 15:00 23:00 07:00 15:00 23:00 Intake Total 480 ml 480 ml Output Total 1125 ml Balance -645 ml 480 ml Intake Oral 480 ml 480 ml Output Urine Total 1125 ml # Voids 3 # Bowel Movements 1 Result Diagram: 11/27/16 0600 11/24/16 1150 Imaging Last Impressions Carotid Artery Ultrasound 11/26/16 0000 Signed Impressions: Service Date/Time: November 09:25 - CONCLUSION: 1. Mild atherosclerotic disease bilaterally. However, no significant stenosis is present within either internal carotid artery (less than 50%% stenosis). 2. There is antegrade flow in both vertebral arteries. Tawanda Solis MD Chest X-Ray 11/24/16 1149 Signed Impressions: Service Date/Time: Thursday, November 24, 2016 12:21 - CONCLUSION: 1. Somewhat lobular contour to the right hilum. Suggest PA and lateral views of the chest to further evaluate. 2. Mild cardiomegaly. Renzo Centeno Jr., MD Objective Remarks GENERAL: This is a well-nourished, well-developed patient, in no apparent distress. CARDIOVASCULAR: Regular rate and regular rhythm . RESPIRATORY: Clear to auscultation. Breath sounds equal bilaterally. No wheezes , rales, or rhonchi. GASTROINTESTINAL: Abdomen soft, non-tender, nondistended. Normal, active bowel sounds MUSCULOSKELETAL: Extremities without clubbing, cyanosis, or edema. NEURO: Alert & Oriented x4 to person, place, time, situation. Moves all ext x4 Procedures cardiac cath Medications and IVs Current Medications Aspirin (Aspirin Chew) 324 mg ONCE ONCE PO Last administered on 11/24/16 11: 56; Start 11/24/16 at 12:00; Stop 11/24/16 at 12:01; Status DC Sodium Chloride (NS Flush) 2 ml UNSCH PRN IVF FLUSH AFTER USING IV ACCESS; Start 11/24/16 at 12:00; Stop 11/24/16 at 13:38; Status DC Heparin Sodium (Porcine) (Heparin Inj) 5,000 units ONCE ONCE IV Last administered on 11/24/16 12:59; Start 11/24/16 at 13:00; Stop 11/24/16 at 13:01 ; Status DC Heparin Sodium (Porcine) (Heparin Inj) 5,000 units UNSCH PRN IV APTT LESS THAN 25; Start 11/24/16 at 19:00; Stop 11/24/16 at 19:00; Status DC Heparin Sodium (Porcine) (Heparin Inj) 2,500 units UNSCH PRN IV APTT 25 TO 39; Start 11/24/16 at 19:00; Stop 11/24/16 at 19:00; Status DC Heparin Sodium/ Dextrose 250 ml @ 10.32 mls/ hr TITRATE PRN IV Coagulation management Last administered on 11/24/16 13:01; Start 11/24/16 at 13:00; Stop 11/24/16 at 17:51; Status DC Sodium Chloride 1,000 ml @ 100 mls/hr Q10H IV Last administered on 11/25/16 10:01; Start 11/24/16 at 12:47; Stop 11/29/16 at 12:46 Aspirin (Aspirin) 325 mg HAND WOODWORKING SANDER PO ; Start 11/24/16 at 13:00; Stop 11/26/16 at 16:08; Status DC Fentanyl Citrate (fentaNYL INJ) 50 mcg HAND WOODWORKING SANDER IV ; Start 11/24/16 at 13:00; Stop 11/28/16 at 12:59 Sodium Chloride (NS Flush) 2 ml BID IV FLUSH Last administered on 11/26/16 08: 57; Start 11/24/16 at 21:00; Stop 11/26/16 at 16:09; Status DC Sodium Chloride (NS Flush) 2 ml UNSCH PRN IV FLUSH FLUSH AFTER USING IV ACCESS ; Start 11/24/16 at 13:45; Stop 11/26/16 at 16:09; Status DC Aspirin (Ecotrin Ec) 325 mg DAILY PO Last administered on 11/27/16 08:04; Start 11/25/16 at 09:00 Carvedilol (Coreg) 3.125 mg BID PO Last administered on 11/27/16 08:03; Start 11/24/16 at 21:00 Atorvastatin Calcium (Lipitor) 10 mg HS PO Last administered on 11/26/16 21:56 ; Start 11/24/16 at 21:00 Heparin Sodium/ Sodium Chloride 1,000 ml @ As Directed STK-MED ONCE .ROUTE ; Start 11/24/16 at 15:21; Stop 11/24/16 at 15:22; Status DC Fentanyl Citrate (fentaNYL INJ) 100 mcg STK-MED ONCE .ROUTE Last administered on 11/24/16 15:22; Start 11/24/16 at 15:22; Stop 11/24/16 at 15:23; Status DC Sodium Chloride 1,000 ml @ 100 mls/hr Q10H IV Last administered on 11/24/16 17:52; Start 11/24/16 at 16:45; Stop 11/24/16 at 22:44; Status DC Miscellaneous Information 1 ONCE ONCE XX ; Start 11/24/16 at 16:45; Stop at 17:51; Status DC Atropine Sulfate (Atropine Inj) 0.5 mg UNSCH PRN IV VAGAL REPONSE; Start at 16:45 Sodium Chloride 250 ml @ 500 mls/hr ONCE PRN IV VAGAL REPONSE; Start 11/24/16 at 16:45; Stop 11/25/16 at 16:44; Status DC Metoclopramide HCl (Reglan Inj) 10 mg Q4H PRN IV NAUSEA; Start 11/24/16 at 16: 45 Ondansetron HCl (Zofran Inj) 4 mg Q4H PRN IV NAUSEA; Start 11/24/16 at 16:45 Iohexol (OMNIPAQUE 350 INJ (Construction Worker)) 50 ml STK-MED ONCE OTHER ; Start at 15:15; Stop 11/25/16 at 07:04; Status DC Sodium Chloride (NS Flush) 2 ml BID IV FLUSH Last administered on 11/27/16t 08: 04; Start 11/26/16 at 21:00 Sodium Chloride (NS Flush) 2 ml UNSCH PRN IV FLUSH FLUSH AFTER USING IV ACCESS ; Start 11/26/16 at 16:00 Cefazolin Sodium 500 mg/Sodium Chloride 505 ml @ 0 mls/hr HAND WOODWORKING SANDER IRRIGATION ; Start 11/26/16 at 16:00; Stop 12/03/16 at 15:59 Cefazolin Sodium/ Dextrose 50 ml @ 150 mls/hr HAND WOODWORKING SANDER IV ; Start 11/26/16 at 16:00; Stop 12/03/16 at 15:59 Metoprolol Tartrate (Lopressor) 12.5 mg HAND WOODWORKING SANDER PO ; Start 11/26/16 at 16:00; Stop 12/03/16 at 15:59 Chlorhexidine Gluconate (Hibiclens 4% Top Soln) 1 applic HAND WOODWORKING SANDER TOPICAL ; Start 11/26/16 at 16:00; Stop 12/03/16 at 15:59 Insulin Human Regular 100 units/ Sodium Chloride 101 ml @ 0 mls/hr Q0M IV ; Start 11/26/16 at 15:51; Stop 12/03/16 at 15:50 Miscellaneous (Pill Splitter) 1 ea UNSCH PRN OTHER SEE LABEL COMMENTS; Start at 16:15 A/P Assessment and Plan A/P NSTEMI, Acute Underlying HTN and aortic stenosis - Cardiac catheterization done by Dr. Bueno, showed moderate disease of the LAD . Aortic valve calcification and likely aortic stenosis. - Carvedilol 3.125 mg by mouth twice a day, atorvastatin 10 mg by mouth at bedtime, aspirin 325 mg daily - Chest x-ray showed somewhat lobular contour to the right helium. Mild cardiomegaly. severe aortic stenosis cardiology follow-up appreciated- CT surgery consult appreciated and plan for aortic valve replacement on Wednesday. Hyperlipidemia - Continue atorvastatin 10 mg daily at bedtime DVT prop SCD Idalia Dupont MD Nov 27, 2016 08:32
[2016-11-27] MEDS: MUPIROCIN 2% OINT 1 APPLIC/GM SYR EACH NARE SCH ×2 (09:00→20:15)
[2016-11-27] MEDS: SODIUM CHLOR 0.9% 1000 ML INJ 1,000 ML IV SCH ×2 (10:47→20:47)
--- NOTE | 2016-11-27 16:27 | PD.CAR.PN ---
CVT Progress Note Subjective/Hospital Course: 76/ male presented to ED with chest pain , elevated troponins , underwent cardiac cath which revealed 30-50% stenosis in mid LAD, ECHO showed mean aortic gradient of 50mmhg / severe aortic stenosis / SRS mortality 1.84 pt has been evaluated for Minimally invasive Aortic valve replacement on Thursday 11/30 PMH: HLP, heart murmur CT chest without contrast pending carotid US < 50% stenosis bilaterally EF 50% Objective: Vital Signs Date Time Temp Pulse Resp B/P (MAP) Pulse Ox O2 Delivery O2 Flow Rate FiO2 11/27/16 14:30 69 11/27/16 13:11 65 11/27/16 12:06 63 11/27/16 11:00 62 11/27/16 11:00 98.9 76 18 125/70 (88) 97 11/27/16 10:00 65 11/27/16 09:33 68 11/27/16 08:00 65 11/27/16 07:00 98.9 88 18 150/67 (94) 94 11/27/16 07:00 62 11/27/16 06:00 68 11/27/16 05:00 62 11/27/16 04:00 62 11/27/16 04:00 98.4 71 18 127/74 (91) 96 11/27/16 03:00 64 11/27/16 02:00 64 11/27/16 01:00 68 11/27/16 00:00 97.8 67 18 111/75 (87) 99 11/27/16 00:00 60 11/26/16 23:00 70 11/26/16 22:00 72 11/26/16 21:00 68 11/26/16 20:00 98.5 62 18 119/62 (81) 96 11/26/16 20:00 68 11/26/16 18:00 78 11/26/16 17:00 70 Labs: Laboratory Tests Test 11/27/16 06:00 White Blood Count 7.9 TH/MM3 (4.0-11.0) Red Blood Count 4.55 MIL/MM3 (4.50-5.90) Hemoglobin 12.7 GM/DL (13.0-17.0) Hematocrit 39.3 % (39.0-51.0) Mean Corpuscular Volume 86.3 FL (80.0-100.0) Mean Corpuscular Hemoglobin 27.9 PG (27.0-34.0) Mean Corpuscular Hemoglobin Concent 32.3 % (32.0-36.0) Red Cell Distribution Width 14.1 % (11.6-17.2) Platelet Count 186 TH/MM3 (150-450) Mean Platelet Volume 9.4 FL (7.0-11.0) Result Diagram: 11/27/16 0600 11/24/16 1150 Telemetry: NSR (1) Chest pain Plan: ASA, statin , BB (2) Severe aortic stenosis Plan: for mini AVR on Wednesday eval CT chest Myesha Manzo Nov 27, 2016 16:26
[2016-11-27] MEDS: ATORVASTATIN 10 MG TAB PO SCH (20:13)
[2016-11-27] MEDS ORDERED: ATROPINE SULFATE 1 MG/10 ML SYRINGE ONE (21:19)
[2016-11-27] MEDS ORDERED: EPINEPHrine HCL (1:10,000) 1 MG/10 ML SYRINGE ONE (21:20)
--- NOTE | 2016-11-27 22:05 | RADRPT ---
EXAM DATE/TIME: 11/27/2016 21:33 [facility] COMPARISON: No previous studies available for comparison. INDICATIONS : Pre op AVR RADIATION DOSE: 4.45 CTDIvol (mGy) MEDICAL HISTORY : None SURGICAL HISTORY : None. ENCOUNTER: Initial ACUITY: 1 day PAIN SCALE: 0/10 LOCATION: chest TECHNIQUE: Volumetric scanning of the chest was performed. Using automated exposure control and adjustment of t he mA and/or kV according to patient size, radiation dose was kept as low as reasonably achievable to obtain optimal diagnostic quality images. DICOM format image data is available electronically for r eview and comparison. Follow-up recommendations for detected pulmonary nodules are based at a minimum on nodule size and pa tient risk factors according to Fleischner Society Guidelines. FINDINGS: LUNGS: Trace left base atelectasis. PLEURAE: There is no pleural thickening or pleural effusion. MEDIASTINUM: No adenopathy. Mild panchamber enlargement of the heart noted. There is calcification of the aortic v alve, probably both the annulus and leaflets. Mildly prominent aortic root, measures about 4.8 cm. Th e vessel tapers gradually. AXILLAE: Within normal limits. No lymphadenopathy. MUSCULOSKELETAL: Within normal limits for patient age. MISCELLANEOUS: The visualized upper abdominal organs demonstrate no acute abnormality. CONCLUSION: 1. Other than trace left base atelectasis, the lungs are clear. 2. Mild panchamber enlargement of the heart. Calcified aortic valve and mildly prominent ascending ao rta. Tawanda Garcia MD on November 27, 2016 at 22:00 Board Certified Radiologist. This report was verified electronically.
[2016-11-28] VITALS (21 sets, daily range): BP systolic 113–125; BP diastolic 69–82; PULSE 58–73; RESP 16–18; TEMP 98–98.9; O2SAT 95–99
[2016-11-28] MEDS: SODIUM CHLOR 0.9% 1000 ML INJ 1,000 ML IV SCH ×3 (06:47→22:28)
--- NOTE | 2016-11-28 07:48 | HHI.PR ---
Subjective Remarks f/u; aortic stenosis resting comfortably with no distress. no chest pain, sob or any other new complaints. Objective Vitals Vital Signs Date Time Temp Pulse Resp B/P (MAP) Pulse Ox O2 Delivery O2 Flow Rate FiO2 11/28/16 07:00 64 11/28/16 07:00 98.9 62 18 123/77 (92) 95 11/28/16 06:00 66 11/28/16 05:00 62 11/28/16 04:00 98.1 58 18 114/69 (84) 96 11/28/16 04:00 60 11/28/16 03:00 63 11/28/16 02:00 72 11/28/16 01:00 70 11/28/16 00:00 98.2 62 18 117/76 (90) 96 11/28/16 00:00 69 11/27/16 23:00 70 11/27/16 22:00 72 11/27/16 21:00 77 11/27/16 20:00 98.0 73 18 118/70 (86) 97 11/27/16 20:00 73 11/27/16 17:14 85 11/27/16 16:00 66 11/27/16 15:00 98.9 62 18 123/77 (92) 95 11/27/16 15:00 70 11/27/16 14:30 69 11/27/16 13:11 65 11/27/16 12:06 63 11/27/16 11:00 62 11/27/16 11:00 98.9 76 18 125/70 (88) 97 11/27/16 10:00 65 11/27/16 09:33 68 11/27/16 08:00 65 I/O 11/27/16 11/27/16 11/27/16 11/28/16 11/28/16 11/28/16 06:59 14:59 22:59 06:59 14:59 22:59 Intake Total 480 ml 700 ml 240 ml Output Total 900 ml 850 ml Balance 480 ml -200 ml -610 ml Intake Oral 480 ml 700 ml 240 ml IV Total 0 ml Output Urine Total 900 ml 850 ml # Voids 3 # Bowel Movements 1 0 Result Diagram: 11/27/16 0600 11/24/16 1150 Imaging Last Impressions Chest CT 11/27/16 0000 Signed Impressions: Service Date/Time: Sunday, November 27, 2016 21:33 - CONCLUSION: 1. Other than trace left base atelectasis, the lungs are clear. 2. Mild panchamber enlargement of the heart. Calcified aortic valve and mildly prominent ascending aorta. Tawanda Garcia MD Carotid Artery Ultrasound 11/26/16 0000 Signed Impressions: Service Date/Time: November 09:25 - CONCLUSION: 1. Mild atherosclerotic disease bilaterally. However, no significant stenosis is present within either internal carotid artery (less than 50%% stenosis). 2. There is antegrade flow in both vertebral arteries. Tawanda Solis MD Chest X-Ray 11/24/16 1149 Signed Impressions: Service Date/Time: Thursday, November 24, 2016 12:21 - CONCLUSION: 1. Somewhat lobular contour to the right hilum. Suggest PA and lateral views of the chest to further evaluate. 2. Mild cardiomegaly. Renzo Centeno Jr., MD Objective Remarks GENERAL: This is a well-nourished, well-developed patient, in no apparent distress. CARDIOVASCULAR: Regular rate and regular rhythm . RESPIRATORY: Clear to auscultation. Breath sounds equal bilaterally. No wheezes , rales, or rhonchi. GASTROINTESTINAL: Abdomen soft, non-tender, nondistended. Normal, active bowel sounds MUSCULOSKELETAL: Extremities without clubbing, cyanosis, or edema. NEURO: Alert & Oriented x4 to person, place, time, situation. Moves all ext x4 Procedures cardiac cath Medications and IVs Current Medications Aspirin (Aspirin Chew) 324 mg ONCE ONCE PO Last administered on 11/24/16 11: 56; Start 11/24/16 at 12:00; Stop 11/24/16 at 12:01; Status DC Sodium Chloride (NS Flush) 2 ml UNSCH PRN IVF FLUSH AFTER USING IV ACCESS; Start 11/24/16 at 12:00; Stop 11/24/16 at 13:38; Status DC Heparin Sodium (Porcine) (Heparin Inj) 5,000 units ONCE ONCE IV Last administered on 11/24/16 12:59; Start 11/24/16 at 13:00; Stop 11/24/16 at 13:01 ; Status DC Heparin Sodium (Porcine) (Heparin Inj) 5,000 units UNSCH PRN IV APTT LESS THAN 25; Start 11/24/16 at 19:00; Stop 11/24/16 at 19:00; Status DC Heparin Sodium (Porcine) (Heparin Inj) 2,500 units UNSCH PRN IV APTT 25 TO 39; Start 11/24/16 at 19:00; Stop 11/24/16 at 19:00; Status DC Heparin Sodium/ Dextrose 250 ml @ 10.32 mls/ hr TITRATE PRN IV Coagulation management Last administered on 11/24/16 13:01; Start 11/24/16 at 13:00; Stop 11/24/16 at 17:51; Status DC Sodium Chloride 1,000 ml @ 100 mls/hr Q10H IV Last administered on 11/25/16 10:01; Start 11/24/16 at 12:47; Stop 11/29/16 at 12:46 Aspirin (Aspirin) 325 mg PEGA DEVELOPER PO ; Start 11/24/16 at 13:00; Stop 11/26/16 at 16:08; Status DC Fentanyl Citrate (fentaNYL INJ) 50 mcg PEGA DEVELOPER IV ; Start 11/24/16 at 13:00; Stop 11/28/16 at 12:59 Sodium Chloride (NS Flush) 2 ml BID IV FLUSH Last administered on 11/26/16 08: 57; Start 11/24/16 at 21:00; Stop 11/26/16 at 16:09; Status DC Sodium Chloride (NS Flush) 2 ml UNSCH PRN IV FLUSH FLUSH AFTER USING IV ACCESS ; Start 11/24/16 at 13:45; Stop 11/26/16 at 16:09; Status DC Aspirin (Ecotrin Ec) 325 mg DAILY PO Last administered on 11/27/16 08:04; Start 11/25/16 at 09:00 Carvedilol (Coreg) 3.125 mg BID PO Last administered on 11/27/16 20:13; Start 11/24/16 at 21:00 Atorvastatin Calcium (Lipitor) 10 mg HS PO Last administered on 11/27/16 20:13 ; Start 11/24/16 at 21:00 Heparin Sodium/ Sodium Chloride 1,000 ml @ As Directed STK-MED ONCE .ROUTE ; Start 11/24/16 at 15:21; Stop 11/24/16 at 15:22; Status DC Fentanyl Citrate (fentaNYL INJ) 100 mcg STK-MED ONCE .ROUTE Last administered on 11/24/16 15:22; Start 11/24/16 at 15:22; Stop 11/24/16 at 15:23; Status DC Sodium Chloride 1,000 ml @ 100 mls/hr Q10H IV Last administered on 11/24/16 17:52; Start 11/24/16 at 16:45; Stop 11/24/16 at 22:44; Status DC Miscellaneous Information 1 ONCE ONCE XX ; Start 11/24/16 at 16:45; Stop at 17:51; Status DC Atropine Sulfate (Atropine Inj) 0.5 mg UNSCH PRN IV VAGAL REPONSE; Start at 16:45 Sodium Chloride 250 ml @ 500 mls/hr ONCE PRN IV VAGAL REPONSE; Start 11/24/16 at 16:45; Stop 11/25/16 at 16:44; Status DC Metoclopramide HCl (Reglan Inj) 10 mg Q4H PRN IV NAUSEA; Start 11/24/16 at 16: 45 Ondansetron HCl (Zofran Inj) 4 mg Q4H PRN IV NAUSEA; Start 11/24/16 at 16:45 Iohexol (OMNIPAQUE 350 INJ (Convention Manager)) 50 ml STK-MED ONCE OTHER ; Start at 15:15; Stop 11/25/16 at 07:04; Status DC Sodium Chloride (NS Flush) 2 ml BID IV FLUSH Last administered on 11/27/16t 20: 13; Start 11/26/16 at 21:00 Sodium Chloride (NS Flush) 2 ml UNSCH PRN IV FLUSH FLUSH AFTER USING IV ACCESS ; Start 11/26/16 at 16:00 Cefazolin Sodium 500 mg/Sodium Chloride 505 ml @ 0 mls/hr PEGA DEVELOPER IRRIGATION ; Start 11/26/16 at 16:00; Stop 12/03/16 at 15:59 Cefazolin Sodium/ Dextrose 50 ml @ 150 mls/hr PEGA DEVELOPER IV ; Start 11/26/16 at 16:00; Stop 12/03/16 at 15:59 Metoprolol Tartrate (Lopressor) 12.5 mg PEGA DEVELOPER PO ; Start 11/26/16 at 16:00; Stop 12/03/16 at 15:59 Chlorhexidine Gluconate (Hibiclens 4% Top Soln) 1 applic PEGA DEVELOPER TOPICAL ; Start 11/26/16 at 16:00; Stop 12/03/16 at 15:59 Insulin Human Regular 100 units/ Sodium Chloride 101 ml @ 0 mls/hr Q0M IV ; Start 11/26/16 at 15:51; Stop 12/03/16 at 15:50 Miscellaneous (Pill Splitter) 1 ea UNSCH PRN OTHER SEE LABEL COMMENTS; Start at 16:15 Mupirocin (Bactroban Nasal 2% Oint) 1 applic BID EACH NARE Last administered on 11/27/16t 20:15; Start 11/27/16 at 09:00; Stop 12/02/16 at 08:59 Atropine Sulfate (Atropine Inj) 1 mg STK-MED ONCE .ROUTE ; Start 11/27/16 at 21: 19; Stop 11/27/16 at 21:20; Status DC Epinephrine HCl (EPINEPHrine (1:10,000) INJ) 1 mg STK-MED ONCE .ROUTE ; Start at 21:20; Stop 11/27/16 at 21:21; Status DC A/P Assessment and Plan A/P NSTEMI Underlying HTN and aortic stenosis - Cardiac catheterization done by Dr. Bueno, showed moderate disease of the LAD . Aortic valve calcification and likely aortic stenosis. - continue aspirin, coreg and statin. -cardiology following. severe aortic stenosis CT surgery consult appreciated and plan for aortic valve replacement on Wednesday. Hyperlipidemia - Continue statin DVT prop SCD Idalia Dupont MD Nov 28, 2016 07:48
[2016-11-28] MEDS: SODIUM CHLORIDE 0.9% FLUSH 10 ML FLUSH IV FLUSH SCH ×2 (08:19→21:54)
[2016-11-28] MEDS: ASPIRIN EC 325 MG TABEC PO SCH (08:19)
[2016-11-28] MEDS: MUPIROCIN 2% OINT 1 APPLIC/GM SYR EACH NARE SCH ×2 (08:19→21:54)
[2016-11-28] MEDS: CARVEDILOL 3.125 MG TAB PO SCH ×2 (08:19→21:54)
[2016-11-28] MEDS: ATORVASTATIN 10 MG TAB PO SCH (21:54)
[2016-11-29] VITALS (24 sets, daily range): BP systolic 99–127; BP diastolic 70–83; PULSE 60–82; RESP 16–18; TEMP 97.7–98; O2SAT 95–98
[2016-11-29 07:35] LABS: PROTHROMBIN TIME - PATIENT 11.6 SEC (9.8-11.6)
[2016-11-29] MEDS: ASPIRIN EC 325 MG TABEC PO SCH (08:17)
[2016-11-29] MEDS: MUPIROCIN 2% OINT 1 APPLIC/GM SYR EACH NARE SCH ×2 (08:17→20:28)
[2016-11-29] MEDS: CARVEDILOL 3.125 MG TAB PO SCH ×2 (08:17→20:26)
[2016-11-29] MEDS: SODIUM CHLORIDE 0.9% FLUSH 10 ML FLUSH IV FLUSH SCH ×2 (08:17→20:27)
--- NOTE | 2016-11-29 11:42 | HHI.PR ---
Subjective Remarks Follow up for aortic stenosis. Patient is currently doing well. Sitting at the side of his bed, eating breakfast. No fever, chills. No chest pain, SOB. Currently on room air. Objective Vitals Vital Signs Date Time Temp Pulse Resp B/P (MAP) Pulse Ox O2 Delivery O2 Flow Rate FiO2 11/29/16 09:00 72 11/29/16 08:00 97.7 69 18 127/83 (98) 95 11/29/16 08:00 68 11/29/16 07:00 60 11/29/16 06:00 60 11/29/16 05:14 68 16 126/81 (96) 98 11/29/16 05:00 66 11/29/16 04:00 66 11/29/16 03:00 61 11/29/16 02:00 64 11/29/16 01:00 66 11/29/16 00:00 66 11/29/16 00:00 67 18 107/70 (82) 98 11/28/16 23:00 62 11/28/16 22:00 64 11/28/16 21:00 62 11/28/16 20:00 68 11/28/16 19:30 98.3 69 16 118/70 (86) 97 11/28/16 19:00 73 11/28/16 15:00 70 11/28/16 15:00 98.0 62 18 113/70 (84) 98 11/28/16 14:25 68 11/28/16 13:26 64 11/28/16 12:18 64 I/O 11/28/16 11/28/16 11/28/16 11/29/16 11/29/16 11/29/16 07:00 15:00 23:00 07:00 15:00 23:00 Intake Total 240 ml 300 ml Output Total 850 ml 875 ml Balance -610 ml -575 ml Intake Oral 240 ml 300 ml Output Urine Total 850 ml 875 ml # Bowel Movements 0 0 Result Diagram: 11/27/16 0600 Imaging Last Impressions Chest CT 11/27/16 0000 Signed Impressions: Service Date/Time: Sunday, November 27, 2016 21:33 - CONCLUSION: 1. Other than trace left base atelectasis, the lungs are clear. 2. Mild panchamber enlargement of the heart. Calcified aortic valve and mildly prominent ascending aorta. Tawanda Garcia MD Carotid Artery Ultrasound 11/26/16 0000 Signed Impressions: Service Date/Time: November 09:25 - CONCLUSION: 1. Mild atherosclerotic disease bilaterally. However, no significant stenosis is present within either internal carotid artery (less than 50%% stenosis). 2. There is antegrade flow in both vertebral arteries. Tawanda Solis MD Chest X-Ray 11/24/16 1149 Signed Impressions: Service Date/Time: Thursday, November 24, 2016 12:21 - CONCLUSION: 1. Somewhat lobular contour to the right hilum. Suggest PA and lateral views of the chest to further evaluate. 2. Mild cardiomegaly. Renzo Centeno Jr., MD Objective Remarks GENERAL: AOX3, NAD. SKIN: Warm and dry. HEAD: Normocephalic. EYES: No scleral icterus. No injection or drainage. NECK: Supple, trachea midline. No JVD or lymphadenopathy. CARDIOVASCULAR: Regular rate and rhythm without gallops, or rubs. There is a systolic murmur present, best heard on the right 2nd IC. RESPIRATORY: Breath sounds equal bilaterally. No accessory muscle use. GASTROINTESTINAL: Abdomen soft, non-tender, nondistended. MUSCULOSKELETAL: No cyanosis, or edema. BACK: Nontender without obvious deformity. No CVA tenderness. Procedures 11/24/2016 Cardiac cath 1. Moderate disease of the LAD that will be medically managed. 2. Aortic valve calcification and likely severe aortic stenosis. An echocardiogram will be obtained for further evaluation of this and the ejection fraction. A/P Problem List: (1) Chest pain ICD Code: R07.9 - Chest pain, unspecified Status: Acute (2) NSTEMI (non-ST elevated myocardial infarction) ICD Code: I21.4 - Non-ST elevation (NSTEMI) myocardial infarction Status: Acute Assessment and Plan Patient is a 76-year-old male with primary medical history of hyperlipidemia who came into the hospital for complaints of chest pain. Patient states that he woke up sweating and was feeling "yucky." States he feels like he has "flu type of feeling." States when he got up he got dizzy. States he has a little bit of chest pain midsternal area, does not radiate anywhere, it is unrelieved by rest, not aggravated by any movement. Patient was then taken to have cardiac catheterization done by Dr. Bueno. Moderate LAD disease found. However, severe was found. CV surgery consulted. - NSTEMI - Hyperlipidemia - Troponins 0.22, 0.21. s/p Cath --> moderate LAD disease. Medical management. - Continue Aspirin 325mg, Lipitor 10mg, Carvedilol 3.125mg BID. - If okay with Cardiology, Aspirin can be reduced to 81mg Qday - Increase Lipitor from 10mg QHS to 40mg QHS. - Severe aortic stenosis - CV surgery following. Probable Mini AVR replacement on 11/30/2016. - NPO midnight except meds. Full code. SCDs. Problem Qualifiers (1) Chest pain: Qualified Codes: R07.9 - Chest pain, unspecified Aditya Mullins DO Nov 29, 2016 11:42
[2016-11-29] MEDS: ATORVASTATIN 10 MG TAB PO SCH (20:27)
[2016-11-30] VITALS (25 sets, daily range): BP systolic 103–150; BP diastolic 65–93; PULSE 63–73; RESP 10–20; TEMP 97.7–98.7; O2SAT 69–98
[2016-11-30] MEDS ORDERED: AMINOCAPROIC ACID INJ 250 MG/ML 20 ML VIAL IV ONE (05:00)
[2016-11-30] MEDS ORDERED: PHENYLEPHRINE HCL 10 MG/ML VIAL IV ONE (05:00)
[2016-11-30] MEDS ORDERED: MAGNESIUM SULFATE 1000 MG/2 ML VIAL (PED) IV ONE (05:00)
[2016-11-30] MEDS ORDERED: ARTIFICIAL TEARS OPTH OINT 3.5 APPLIC/3.5 GM TUBO ONE (05:00)
[2016-11-30] MEDS ORDERED: VECURONIUM BROMIDE 10 MG VIAL IV ONE (05:00)
[2016-11-30] MEDS ORDERED: PROPOFOL 1000 MG/100 ML INJ 100 ML IV ONE (05:00)
[2016-11-30] MEDS ORDERED: VANCOMYCIN HCL 1000 MG VIAL ONE (06:38)
[2016-11-30] MEDS ORDERED: HEPARIN SODIUM - SQ 10,000 UNITS/ML VIAL ONE (06:39)
[2016-11-30] MEDS ORDERED: ceFAZolin 2 GM PREMIX 0 ML ONE (06:39)
[2016-11-30 06:59] LABS: HEMATOCRIT 39.1 % (39.0-51.0); MEAN CELL VOLUME 86.2 FL (80.0-100.0); MEAN CORPUSCULAR HEMOGLOBIN 28.1 PG (27.0-34.0); MEAN CORPUSCULAR HGB CONC 32.6 % (32.0-36.0); PLATELET COUNT 181 TH/MM3 (150-450); RED BLOOD COUNT 4.54 MIL/MM3 (4.50-5.90); RED CELL DISTRIBUTION WIDTH 13.9 % (11.6-17.2); REVIEW FLAG FINAL; WHITE BLOOD COUNT 7.9 TH/MM3 (4.0-11.0)
[2016-11-30] MEDS ORDERED: CUSTODIOL HTK IRR SOLN 2,000 ML ONE (07:12)
[2016-11-30] MEDS ORDERED: SODIUM BICARBONATE 8.4% INJ 0 ML ONE (07:12)
[2016-11-30] MEDS ORDERED: MANNITOL INJ 0 ML ONE (07:13)
[2016-11-30] MEDS ORDERED: POTASSIUM CHLORIDE 20 MEQ/10 ML VIAL ONE ×2 (07:13)
[2016-11-30] MEDS ORDERED: ALBUMIN HUMAN 25% 12.5 GM/50 ML BAGP IV ONE (07:14)
[2016-11-30] MEDS ORDERED: HEPARIN SODIUM - IV 10,000 UNITS/10 ML VIAL ONE (07:14)
[2016-11-30] MEDS ORDERED: BUPIVACAINE LIPOSO PF 1.3% INJ 20 ML, DEXAMETHASONE INJ 4 MG, MORPHINE INJ 8 MG in SODI... IRRIGATION SCH (07:30)
[2016-11-30] MEDS ORDERED: SUGAMMADEX SODIUM 200 MG/2 ML VIAL IV PUSH ONE ×2 (08:03)
[2016-11-30] MEDS ORDERED: fentaNYL CITRATE 1000 MCG/20 ML VIAL ONE (09:01)
[2016-11-30] MEDS ORDERED: MIDAZOLAM HCL 5 MG/5 ML VIAL ONE (09:01)
--- NOTE | 2016-11-30 09:01 | RADRPT ---
EXAM DATE/TIME: 11/30/2016 08:19 [facility] COMPARISON: No previous studies available for comparison. INDICATIONS : Post right neck attempted central line. Evaluate for right carotid pseudoaneurysm. MEDICAL HISTORY : Hypercholesterolemia. Myocardial infarction. Hearing loss. Coronary artery disease. Aortic valve vince nosis. SURGICAL HISTORY : Heart catheterization. ENCOUNTER: Subsequent ACUITY: 1 day PAIN SCORE: Nonresponsive. LOCATION: Right neck. AREA EVALUATED: Right carotid artery and neck. FINDINGS: There is no evidence for pseudoaneurysm. Minimal hematoma is present. CONCLUSION: Negative for pseudoaneurysm, thrombosis or occlusion. Barrie Handy MD FACR on November 30, 2016 at 8:58 Board Certified Radiologist. This report was verified electronically.
[2016-11-30] MEDS ORDERED: CLEVIDIPINE INJ 50 ML IV PRN (09:07)
[2016-11-30] MEDS ORDERED: PHENYLEPHRINE INJ 40 MG in DEXTROSE 5% IN WATE 500 ML INJ 496 ML IV PRN ×2 (09:07)
[2016-11-30] MEDS ORDERED: DEXTROSE 50% IN WATER 50 ML VIAL(D50) IV PUSH PRN (09:15)
[2016-11-30] MEDS ORDERED: METOPROLOL TARTRATE 5 MG/5 ML VIAL IV PUSH PRN (09:15)
[2016-11-30] MEDS ORDERED: ACETAMINOPHEN 325 MG TAB PO PRN (09:15)
[2016-11-30] MEDS ORDERED: SODIUM CHLORIDE 0.9% FLUSH 10 ML FLUSH IV FLUSH PRN ×2 (09:15→15:00)
[2016-11-30] MEDS ORDERED: ACETAMINOPHEN 650 MG SUPP RECTAL PRN (09:15)
[2016-11-30] MEDS ORDERED: ONDANSETRON HCL 4 MG/2 ML VIAL IV PUSH PRN (09:15)
[2016-11-30] MEDS ORDERED: CALCIUM CHLORIDE 10% 1 GRAM/10 ML VIAL IV PRN (09:15)
[2016-11-30] MEDS ORDERED: hydrALAZINE HCL 20 MG/ML VIAL IV PRN (09:15)
[2016-11-30] MEDS ORDERED: RESP: RACEPINEPHRINE 2.25% 0.5 ML NEB NEB PRN (09:15)
[2016-11-30] MEDS ORDERED: CALCIUM CHLORIDE INJ 1 GM in SODIUM CHLORIDE 0.9% INJ 100 ML IV PRN (09:15)
[2016-11-30] MEDS ORDERED: RESP: ALBUTEROL 2.5 MG/IPRATROPIUM 0.5 MG NEB (PRN) NEB (09:15)
[2016-11-30] MEDS ORDERED: POTASSIUM CHLORIDE 20 MEQ CONTROLLED RELEASE TAB PO PRN ×2 (09:15)
[2016-11-30] MEDS ORDERED: MAGNESIUM SULFATE INJ 2 GM in SODIUM CHLORIDE 0.9% INJ 100 ML IV PRN ×4 (09:15)
[2016-11-30] MEDS ORDERED: SODIUM CHLORIDE 0.9% FLUSH 10 ML FLUSH IV FLUSH SCH (09:15)
[2016-11-30] MEDS ORDERED: POTASSIUM CHLOR 20 MEQ PREMIX 100 ML IV PRN ×3 (09:15)
--- NOTE | 2016-11-30 09:49 | HHI.PR ---
Objective Vitals Vital Signs Date Time Temp Pulse Resp B/P (MAP) Pulse Ox O2 Delivery O2 Flow Rate FiO2 11/30/16 09:14 68 11/30/16 09:09 98.7 63 10 119/76 (90) 95 150/78 (102) 11/30/16 06:00 72 11/30/16 05:00 67 11/30/16 04:00 71 11/30/16 03:48 98.4 65 20 124/77 (93) 97 11/30/16 03:00 67 11/30/16 02:00 70 11/30/16 01:00 67 11/30/16 00:00 98.2 71 18 108/69 (82) 95 11/30/16 00:00 71 11/29/16 23:00 67 11/29/16 22:00 70 11/29/16 21:00 68 11/29/16 20:00 98.0 63 18 120/74 (89) 96 11/29/16 20:00 63 11/29/16 18:00 70 11/29/16 17:00 68 11/29/16 16:00 82 11/29/16 15:00 97.9 67 18 120/74 (89) 97 11/29/16 15:00 71 11/29/16 14:00 74 11/29/16 13:00 68 11/29/16 12:00 97.7 74 18 99/72 (81) 97 11/29/16 12:00 70 11/29/16 11:00 70 11/29/16 10:00 72 I/O 11/29/16 11/29/16 11/29/16 11/30/16 11/30/16 11/30/16 06:59 14:59 22:59 06:59 14:59 22:59 Intake Total 300 ml 600 ml 240 ml Output Total 875 ml 800 ml Balance -575 ml 600 ml -560 ml Intake Oral 300 ml 600 ml 240 ml Output Urine Total 875 ml 800 ml # Voids 3 # Bowel Movements 0 0 Result Diagram: 11/30/16 0525 Other Results Laboratory Tests Test 11/29/16 07:04 11/30/16 05:25 Prothrombin Time 11.6 SEC Prothromb Time International Ratio 1.0 RATIO White Blood Count 7.9 TH/MM3 Red Blood Count 4.54 MIL/MM3 Hemoglobin 12.8 GM/DL Hematocrit 39.1 % Mean Corpuscular Volume 86.2 FL Mean Corpuscular Hemoglobin 28.1 PG Mean Corpuscular Hemoglobin Concent 32.6 % Red Cell Distribution Width 13.9 % Platelet Count 181 TH/MM3 Mean Platelet Volume 9.7 FL Imaging Last Impressions Neck Ultrasound 11/30/16 0000 Signed Impressions: Service Date/Time: Wednesday, November 30, 2016 08:19 - CONCLUSION: Negative for pseudoaneurysm, thrombosis or occlusion. Barrie Handy MD FACR Chest CT 11/27/16 0000 Signed Impressions: Service Date/Time: Sunday, November 27, 2016 21:33 - CONCLUSION: 1. Other than trace left base atelectasis, the lungs are clear. 2. Mild panchamber enlargement of the heart. Calcified aortic valve and mildly prominent ascending aorta. Tawanda Garcia MD Carotid Artery Ultrasound 11/26/16 0000 Signed Impressions: Service Date/Time: November 09:25 - CONCLUSION: 1. Mild atherosclerotic disease bilaterally. However, no significant stenosis is present within either internal carotid artery (less than 50%% stenosis). 2. There is antegrade flow in both vertebral arteries. Tawanda Solis MD Chest X-Ray 11/24/16 1149 Signed Impressions: Service Date/Time: Thursday, November 24, 2016 12:21 - CONCLUSION: 1. Somewhat lobular contour to the right hilum. Suggest PA and lateral views of the chest to further evaluate. 2. Mild cardiomegaly. Renzo Centeno Jr., MD Objective Remarks GENERAL: AWAKE ALERT AND ORIENTED x4 SKIN: Warm and dry. NO RASHES HEAD: Atraumatic. Normocephalic. EYES: Pupils equal and round. No scleral icterus. No injection or drainage. EOMI ENT: No nasal bleeding or discharge. Mucous membranes pink and moist.TONGUE MIDLINE NECK: Trachea midline. No JVD. SUPPLE CARDIOVASCULAR: Regular rate and rhythm. S1, S2 NO S3 OR S4 NO HEAVE OR THRILL 3/6 [place]GETTE RESPIRATORY: No accessory muscle use. Clear to auscultation. Breath sounds equal bilaterally. GASTROINTESTINAL: Abdomen soft, non-tender, nondistended. Hepatic and splenic margins not palpable. MUSCULOSKELETAL: Extremities without clubbing, cyanosis, or edema. No obvious deformities. NEUROLOGICAL: Awake and alert. No obvious cranial nerve deficits. Motor grossly within normal limits. Five out of 5 muscle strength in the arms and legs. Normal speech. PSYCHIATRIC: Appropriate mood and affect; insight and judgment normal. Procedures 11/24/2016 Cardiac cath 1. Moderate disease of the LAD that will be medically managed. 2. Aortic valve calcification and likely severe aortic stenosis. An echocardiogram will be obtained for further evaluation of this and the ejection fraction. Medications and IVs Current Medications Aspirin (Aspirin Chew) 324 mg ONCE ONCE PO Last administered on 11/24/16 11: 56; Start 11/24/16 at 12:00; Stop 11/24/16 at 12:01; Status DC Sodium Chloride (NS Flush) 2 ml UNSCH PRN IVF FLUSH AFTER USING IV ACCESS; Start 11/24/16 at 12:00; Stop 11/24/16 at 13:38; Status DC Heparin Sodium (Porcine) (Heparin Inj) 5,000 units ONCE ONCE IV Last administered on 11/24/16 12:59; Start 11/24/16 at 13:00; Stop 11/24/16 at 13:01 ; Status DC Heparin Sodium (Porcine) (Heparin Inj) 5,000 units UNSCH PRN IV APTT LESS THAN 25; Start 11/24/16 at 19:00; Stop 11/24/16 at 19:00; Status DC Heparin Sodium (Porcine) (Heparin Inj) 2,500 units UNSCH PRN IV APTT 25 TO 39; Start 11/24/16 at 19:00; Stop 11/24/16 at 19:00; Status DC Heparin Sodium/ Dextrose 250 ml @ 10.32 mls/ hr TITRATE PRN IV Coagulation management Last administered on 11/24/16 13:01; Start 11/24/16 at 13:00; Stop 11/24/16 at 17:51; Status DC Sodium Chloride 1,000 ml @ 100 mls/hr Q10H IV Last administered on 11/25/16 10:01; Start 11/24/16 at 12:47; Stop 11/29/16 at 12:46; Status DC Aspirin (Aspirin) 325 mg GRAPHICS PRODUCTION SPECIALIST PO ; Start 11/24/16 at 13:00; Stop 11/26/16 at 16:08; Status DC Fentanyl Citrate (fentaNYL INJ) 50 mcg GRAPHICS PRODUCTION SPECIALIST IV ; Start 11/24/16 at 13:00; Stop 11/28/16 at 12:59; Status DC Sodium Chloride (NS Flush) 2 ml BID IV FLUSH Last administered on 11/26/16 08: 57; Start 11/24/16 at 21:00; Stop 11/26/16 at 16:09; Status DC Sodium Chloride (NS Flush) 2 ml UNSCH PRN IV FLUSH FLUSH AFTER USING IV ACCESS ; Start 11/24/16 at 13:45; Stop 11/26/16 at 16:09; Status DC Aspirin (Ecotrin Ec) 325 mg DAILY PO Last administered on 11/29/16 08:17; Start 11/25/16 at 09:00; Stop 11/30/16 at 09:41; Status DC Carvedilol (Coreg) 3.125 mg BID PO Last administered on 11/29/16 20:26; Start 11/24/16 at 21:00 Atorvastatin Calcium (Lipitor) 10 mg HS PO Last administered on 11/28/16 21:54 ; Start 11/24/16 at 21:00; Stop 11/29/16 at 11:41; Status DC Heparin Sodium/ Sodium Chloride 1,000 ml @ As Directed STK-MED ONCE .ROUTE ; Start 11/24/16 at 15:21; Stop 11/24/16 at 15:22; Status DC Fentanyl Citrate (fentaNYL INJ) 100 mcg STK-MED ONCE .ROUTE Last administered on 11/24/16 15:22; Start 11/24/16 at 15:22; Stop 11/24/16 at 15:23; Status DC Sodium Chloride 1,000 ml @ 100 mls/hr Q10H IV Last administered on 11/24/16 17:52; Start 11/24/16 at 16:45; Stop 11/24/16 at 22:44; Status DC Miscellaneous Information 1 ONCE ONCE XX ; Start 11/24/16 at 16:45; Stop at 17:51; Status DC Atropine Sulfate (Atropine Inj) 0.5 mg UNSCH PRN IV VAGAL REPONSE; Start at 16:45 Sodium Chloride 250 ml @ 500 mls/hr ONCE PRN IV VAGAL REPONSE; Start 11/24/16 at 16:45; Stop 11/25/16 at 16:44; Status DC Metoclopramide HCl (Reglan Inj) 10 mg Q4H PRN IV NAUSEA; Start 11/24/16 at 16: 45 Ondansetron HCl (Zofran Inj) 4 mg Q4H PRN IV NAUSEA; Start 11/24/16 at 16:45; Stop 11/30/16 at 09:41; Status DC Iohexol (OMNIPAQUE 350 INJ (Service Attendant)) 50 ml STK-MED ONCE OTHER ; Start at 15:15; Stop 11/25/16 at 07:04; Status DC Sodium Chloride (NS Flush) 2 ml BID IV FLUSH Last administered on 11/29/16 20: 27; Start 11/26/16 at 21:00; Stop 11/30/16 at 09:38; Status DC Sodium Chloride (NS Flush) 2 ml UNSCH PRN IV FLUSH FLUSH AFTER USING IV ACCESS ; Start 11/26/16 at 16:00; Stop 11/30/16 at 09:38; Status DC Cefazolin Sodium 500 mg/Sodium Chloride 505 ml @ 0 mls/hr GRAPHICS PRODUCTION SPECIALIST IRRIGATION ; Start 11/26/16 at 16:00; Stop 12/03/16 at 15:59 Cefazolin Sodium/ Dextrose 50 ml @ 150 mls/hr GRAPH[employer] PRODUCTION SPECIALIST IV ; Start 11/26/16 at 16:00; Stop 12/03/16 at 15:59 Metoprolol Tartrate (Lopressor) 12.5 mg GRAPH[employer] PRODUCTION SPECIALIST PO ; Start 11/26/16 at 16:00; Stop 12/03/16 at 15:59 Chlorhexidine Gluconate (Hibiclens 4% [facility] Soln) 1 applic GRAPHICS PRODUCTION SPECIALIST TOPICAL Last administered on 11/30/16 03:37; Start 11/26/16 at 16:00; Stop 12/03/16 at 15:59 Insulin Human Regular 100 units/ Sodium Chloride 101 ml @ 0 mls/hr Q0M IV ; Start 11/26/16 at 15:51; Stop 12/03/16 at 15:50 Miscellaneous (Pill Splitter) 1 ea UNSCH PRN OTHER SEE LABEL COMMENTS; Start at 16:15 Mupirocin (Bactroban Nasal 2% Oint) 1 applic BID EACH NARE Last administered on 8/27/17at 20:28; Start 11/27/16 at 09:00; Stop 12/02/16 at 08:59 Atropine Sulfate (Atropine Inj) 1 mg STK-MED ONCE .ROUTE ; Start 11/27/16 at 21: 19; Stop 11/27/16 at 21:20; Status DC Epinephrine HCl (EPINEPHrine (1:10,000) INJ) 1 mg STK-MED ONCE .ROUTE ; Start at 21:20; Stop 11/27/16 at 21:21; Status DC Atorvastatin Calcium (Lipitor) 40 mg HS PO Last administered on 11/29/16t 20:27 ; Start 11/29/16 at 21:00 Vancomycin HCl (Vancomycin Inj) 5,000 mg STK-MED ONCE .ROUTE ; Start 11/30/16 at 06:38; Stop 11/30/16 at 06:39; Status DC Cefazolin Sodium/ Dextrose 0 ml @ As Directed STK-MED ONCE .ROUTE ; Start at 06:39; Stop 11/30/16 at 06:40; Status DC Heparin Sodium (Porcine) (Heparin Inj) 40,000 units STK-MED ONCE .ROUTE Last administered on 11/30/16t 06:39; Start 11/30/16 at 06:39; Stop 11/30/16 at 06:40 ; Status DC Multi-Ingred Electrol/Mineral Irrig 2,000 ml @ As Directed STK-MED ONCE .ROUTE ; Start 11/30/16 at 07:12; Stop 11/30/16 at 07:13; Status DC Sodium Bicarbonate 0 ml @ As Directed STK-MED ONCE .ROUTE ; Start 11/30/16 at 07 :12; Stop 11/30/16 at 07:13; Status DC Potassium Chloride (KCl Inj) 2 meq STK-MED ONCE .ROUTE ; Start 11/30/16 at 07:13 ; Stop 11/30/16 at 07:14; Status DC Potassium Chloride (KCl Inj) 2 meq STK-MED ONCE .ROUTE ; Start 11/30/16 at 07:13 ; Stop 11/30/16 at 07:14; Status DC Mannitol 0 ml @ As Directed STK-MED ONCE .ROUTE ; Start 11/30/16 at 07:13; Stop 11/30/16 at 07:14; Status DC Heparin Sodium (Porcine) (Heparin Inj) 10,000 units STK-MED ONCE .ROUTE ; Start 11/30/16 at 07:14; Stop 11/30/16 at 07:15; Status DC Albumin Human (Albumin 25% Inj) 12.5 gm STK-MED ONCE IV ; Start 11/30/16 at 07: 14; Stop 11/30/16 at 07:15; Status DC Bupivacaine Liposome 20 ml/ Dexamethasone Sodium Phosphate 4 mg/Morphine Sulfate 8 mg/ Sodium Chloride 43 ml @ 86 mls/hr UNSCH IRRIGATION ; Start at 07:30; Stop 11/30/16 at 09:30; Status DC Sugammadex Sodium (Bridion Inj) 400 mg STK-MED ONCE IV PUSH ; Start 11/30/16 at 08:03; Stop 11/30/16 at 08:04; Status DC Midazolam HCl (Versed Inj) 10 mg STK-MED ONCE .ROUTE ; Start 11/30/16 at 09:01; Stop 11/30/16 at 09:03; Status DC Fentanyl Citrate (fentaNYL INJ) 1,000 mcg STK-MED ONCE .ROUTE ; Start 11/30/16 at 09:01; Stop 11/30/16 at 09:03; Status DC Sodium Chloride (NS Flush) 2 ml BID IV FLUSH ; Start 11/30/16 at 09:15 Sodium Chloride (NS Flush) 2 ml UNSCH PRN IV FLUSH FLUSH AFTER USING IV ACCESS ; Start 11/30/16 at 09:15 Phenylephrine HCl 40 mg/Dextrose 500 ml @ 30 mls/hr [id number] PRN IV Maintain MAP > 65 mmHg; Start 11/30/16 at 09:07 Clevidipine 50 ml @ 2 mls/hr Q24H PRN IV Maintain BP < 140/90 mmHg; Start at 09:07 Aspirin (Aspirin Chew) 81 mg DAILY PO ; Start 12/01/16 at 09:00 Pantoprazole Sodium (Protonix) 40 mg DAILY@06 PO ; Start 12/01/16 at 06:00 Acetaminophen (Tylenol) 650 mg Q4H PRN PO TEMPERATURE > 101 F; Start 11/30/16 at 09:15 Acetaminophen (Tylenol Supp) 650 mg Q4H PRN RECTAL TEMPERATURE > 101 F; Start 11/30/16 at 09:15 Ondansetron HCl (Zofran Inj) 4 mg Q6H PRN IV PUSH NAUSEA OR VOMITING; Start at 09:15 Hydralazine HCl (Apresoline Inj) 10 mg Q4H PRN IV SEE LABEL COMMENTS; Start at 09:15 Metoprolol Tartrate (Lopressor Inj) 2.5 mg Q1H PRN IV PUSH SEE LABEL COMMENTS; Start 11/30/16 at 09:15 Potassium Chloride 100 ml @ 50 mls/hr UNSCH PRN IV SEE LABEL COMMENTS; Start 11/30/16 at 09:15 Potassium Chloride 100 ml @ 50 mls/hr UNSCH PRN IV SEE LABEL COMMENTS; Start 11/30/16 at 09:15 Potassium Chloride 100 ml @ 50 mls/hr UNSCH PRN IV SEE LABEL COMMENTS; Start 11/30/16 at 09:15 Potassium Chloride (KCl) 20 meq UNSCH PRN PO SEE LABEL COMMENTS; Start at 09:15 Potassium Chloride (KCl) 40 meq UNSCH PRN PO SEE LABEL COMMENTS; Start at 09:15 Magnesium Sulfate 2 gm/Sodium Chloride 104 ml @ 100 mls/hr UNSCH PRN IV SEE LABEL COMMENTS; Start 11/30/16 at 09:15 Magnesium Sulfate 2 gm/Sodium Chloride 104 ml @ 50 mls/hr UNSCH PRN IV SEE LABEL COMMENTS; Start 11/30/16 at 09:15 Calcium Chloride 1 gm/Sodium Chloride 110 ml @ 100 mls/hr UNSCH PRN IV SEE LABEL COMMENTS; Start 11/30/16 at 09:15 Calcium Chloride (Calcium Chloride Inj) 0.5 gm UNSCH PRN IV SEE LABEL COMMENTS ; Start 11/30/16 at 09:15 Dextrose (D50w (Vial) Inj) 50 ml UNSCH PRN IV PUSH HYPOGLYCEMIA-SEE COMMENTS; Start 11/30/16 at 09:15 Albuterol/ Ipratropium (Duoneb Neb) 1 ampule Q6HR NEB NEB ; Start 11/30/16 at 10:00 Albuterol/ Ipratropium (Duoneb Neb) 1 ampule Q2HR NEB PRN NEB WHEEZING; Start 11/30/16 at 09:15 Racepinephrine (Racepinephrine 2.25% Neb) 0.5 ml UNSCH X1 PRN NEB STRIDOR; Start 11/30/16 at 09:15; Stop 12/02/16 at 09:14 Urinary Catheter: Yes Assessment to: Continue Hector insert reason: ICU Pt Getting Diuretics A/P Problem List: (1) Chest pain ICD Code: R07.9 - Chest pain, unspecified Status: Acute (2) NSTEMI (non-ST elevated myocardial infarction) ICD Code: I21.4 - Non-ST elevation (NSTEMI) myocardial infarction Status: Acute Assessment and Plan Patient is a 76-year-old male with primary medical history of hyperlipidemia who came into the hospital for complaints of chest pain. Patient states that he woke up sweating and was feeling "yucky." States he feels like he has "flu type of feeling." States when he got up he got dizzy. States he has a little bit of chest pain midsternal area, does not radiate anywhere, it is unrelieved by rest, not aggravated by any movement. Patient was then taken to have cardiac catheterization done by Dr. Bueno. Moderate LAD disease found. However, severe was found. CV surgery consulted. - NSTEMI - Hyperlipidemia - Troponins 0.22, 0.21. s/p Cath --> moderate LAD disease. Medical management. - Continue Aspirin 325mg, Lipitor 10mg, Carvedilol 3.125mg BID. - If okay with Cardiology, Aspirin can be reduced to 81mg Qday - Increase Lipitor from 10mg QHS to 40mg QHS. - Severe aortic stenosis - CV surgery following. Probable Mini AVR replacement OFF SCHEDULE - CARDIAC DIET Full code. SCDs. SURGERY ON HOLD Problem Qualifiers (1) Chest pain: Qualified Codes: R07.9 - Chest pain, unspecified Barrie Morris DO Nov 30, 2016 09:49
[2016-11-30] MEDS ORDERED: RESP: ALBUTEROL 2.5 MG/IPRATROPIUM 0.5 MG NEB (SCH) NEB (10:00)
[2016-11-30] MEDS: CARVEDILOL 3.125 MG TAB PO SCH ×2 (12:34→21:29)
[2016-11-30] MEDS: MUPIROCIN 2% OINT 1 APPLIC/GM SYR EACH NARE SCH ×2 (12:34→21:29)
--- NOTE | 2016-11-30 14:50 | PD.CAR.PN ---
CVT Progress Note Subjective/Hospital Course: 76/ male presented to ED with chest pain , elevated troponins , underwent cardiac cath which revealed 30-50% stenosis in mid LAD, ECHO showed mean aortic gradient of 50mmhg / severe aortic stenosis / SRS mortality 1.84 pt has been evaluated for Minimally invasive Aortic valve replacement on Thursday 11/30 PMH: HLP, heart murmur CT chest without contrast pending carotid US < 50% stenosis bilaterally EF 50% 11/30 pt went into OR, when undergoing CVC line placement , there was difficulty with hematoma right neck area OR aborted, pt sent to CVICU for Observation / Pt A&0 x 4 , moves all extremities small hematoma right neck area Objective: GENERAL: SKIN: Warm and dry. HEAD: Atraumatic. Normocephalic. EYES: Pupils equal and round. No scleral icterus. No injection or drainage. ENT: No nasal bleeding or discharge. Mucous membranes pink and moist. NECK: Trachea midline. No JVD. CARDIOVASCULAR: Regular rate and rhythm. small hematoma right neck area RESPIRATORY: No accessory muscle use. Clear to auscultation. Breath sounds equal bilaterally. GASTROINTESTINAL: Abdomen soft, non-tender, nondistended. Hepatic and splenic margins not palpable. MUSCULOSKELETAL: Extremities without clubbing, cyanosis, or edema. No obvious deformities. NEUROLOGICAL: Awake and alert. No obvious cranial nerve deficits. Motor grossly within normal limits. Five out of 5 muscle strength in the arms and legs. Normal speech. PSYCHIATRIC: Appropriate mood and affect; insight and judgment normal. Vital Signs Date Time Temp Pulse Resp B/P (MAP) Pulse Ox O2 Delivery O2 Flow Rate FiO2 11/30/16 12:24 68 11/30/16 11:00 98.5 69 16 123/77 (92) 69 11/30/16 11:00 70 11/30/16 11:00 97.7 70 18 145/93 (110) 98 149/74 (99) 11/30/16 09:30 97 Nasal Cannula 2.00 11/30/16 09:14 68 11/30/16 09:09 98.7 63 10 119/76 (90) 95 150/78 (102) 11/30/16 06:00 72 11/30/16 05:00 67 11/30/16 04:00 71 11/30/16 03:48 98.4 65 20 124/77 (93) 97 11/30/16 03:00 67 11/30/16 02:00 70 11/30/16 01:00 67 11/30/16 00:00 98.2 71 18 108/69 (82) 95 11/30/16 00:00 71 11/29/16 23:00 67 11/29/16 22:00 70 11/29/16 21:00 68 11/29/16 20:00 98.0 63 18 120/74 (89) 96 11/29/16 20:00 63 11/29/16 18:00 70 11/29/16 17:00 68 11/29/16 16:00 82 11/29/16 15:00 97.9 67 18 120/74 (89) 97 11/29/16 15:00 71 Labs: Laboratory Tests Test 11/30/16 05:25 White Blood Count 7.9 TH/MM3 (4.0-11.0) Red Blood Count 4.54 MIL/MM3 (4.50-5.90) Hemoglobin 12.8 GM/DL (13.0-17.0) Hematocrit 39.1 % (39.0-51.0) Mean Corpuscular Volume 86.2 FL (80.0-100.0) Mean Corpuscular Hemoglobin 28.1 PG (27.0-34.0) Mean Corpuscular Hemoglobin Concent 32.6 % (32.0-36.0) Red Cell Distribution Width 13.9 % (11.6-17.2) Platelet Count 181 TH/MM3 (150-450) Mean Platelet Volume 9.7 FL (7.0-11.0) Result Diagram: 11/30/16 0525 Telemetry: NSR (1) Chest pain Plan: ASA, statin , BB (2) Severe aortic stenosis Plan: for mini AVR on Tues eval CT chest (3) Hypertension Plan: BP control (4) Hyperlipemia Myesha Manzo Nov 30, 2016 14:49
[2016-11-30] MEDS ORDERED: INSULIN REGULAR (IV INFUSION) 100 UNITS in SODIUM CHLORIDE 0.9% INJ 100 ML IV SCH (14:59)
[2016-11-30] MEDS ORDERED: CHLORHEXIDINE GLUCONATE 4% SOLN 120 ML BTL TOPICAL SCH (16:00)
[2016-11-30 16:06] LABS: PROTHROMBIN TIME - PATIENT 11.6 SEC (9.8-11.6)
[2016-11-30] MEDS ORDERED: INSULIN REGULAR 100 UNITS in NS 100 ML IV PRN (16:15)
[2016-11-30] MEDS: ATORVASTATIN 10 MG TAB PO SCH (21:29)
[2016-11-30] MEDS: SODIUM CHLORIDE 0.9% FLUSH 10 ML FLUSH IV FLUSH SCH (21:30)
[2016-12-01] VITALS (28 sets, daily range): BP systolic 100–129; BP diastolic 63–75; PULSE 58–76; RESP 18–20; TEMP 97.8–98.9; O2SAT 97–98
--- NOTE | 2016-12-01 04:40 | RADRPT ---
EXAM DATE/TIME: 12/01/2016 03:58 [facility] COMPARISON: CHEST SINGLE AP, November 24, 2016, 12:21. INDICATIONS : Short of breath. MEDICAL HISTORY : Hypercholesterolemia. SURGICAL HISTORY : None. ENCOUNTER: Subsequent ACUITY: 1 week PAIN SCORE: 0/10 LOCATION: Bilateral chest FINDINGS: Portable AP view of the chest demonstrates a normal-sized cardiac silhouette with calcification of th e aorta. No effusion, consolidation, or pneumothorax is visualized. Bones and soft tissues demonstrat e no acute finding. CONCLUSION: No acute cardiopulmonary abnormality is identified. Tawanda Solis MD on December 01, 2016 at 4:38 Board Certified Radiologist. This report was verified electronically.
[2016-12-01] MEDS: PANTOPRAZOLE SOD 40 MG DELAYED RELEASE TAB PO SCH (06:08)
[2016-12-01 06:56] LABS: AUTOMATED NEUTROPHIL # 6.1 TH/MM3 (1.8-7.7); BASOPHIL % 0.3 % (0.0-2.0); EOSINOPHIL # 0.2 TH/MM3 (0-0.4); EOSINOPHIL % 2.3 % (0.0-4.0); HEMATOCRIT 39.7 % (39.0-51.0); HEMO FLAGS DIFF FINAL; LYMPH % 12.6 % (9.0-44.0); MEAN CELL VOLUME 86.6 FL (80.0-100.0); MEAN CORPUSCULAR HEMOGLOBIN 28.7 PG (27.0-34.0); MEAN CORPUSCULAR HGB CONC 33.2 % (32.0-36.0); MONO % 10.9 % (0.0-8.0); NEUT % 73.9 % (16.0-70.0); PLATELET COUNT 177 TH/MM3 (150-450); RED BLOOD COUNT 4.59 MIL/MM3 (4.50-5.90); RED CELL DISTRIBUTION WIDTH 13.9 % (11.6-17.2); WHITE BLOOD COUNT 8.2 TH/MM3 (4.0-11.0)
[2016-12-01 07:19] LABS: ALT (GPT) 21 U/L (12-78); ANION GAP 7 MEQ/L (5-15); AST (GOT) 11 U/L (15-37); BICARBONATE 30.3 MEQ/L (21.0-32.0); BLOOD UREA NITROGEN 21 MG/DL (7-18); CHLORIDE 103 MEQ/L (98-107); GLOMERULAR FILTRATION RATE 74 ML/MIN (>89); MAGNESIUM 2.2 MG/DL (1.5-2.5); POTASSIUM 4.6 MEQ/L (3.5-5.1); SODIUM (NA) 140 MEQ/L (136-145)
[2016-12-01 07:28] LABS: ALKALINE PHOSPHATASE 68 U/L (45-117); FREE T4 1.05 NG/DL (0.76-1.46); TOTAL BILIRUBIN ADULT 0.6 MG/DL (0.2-1.0)
--- NOTE | 2016-12-01 08:39 | HHI.PR ---
Subjective Remarks 11-30 SURGERY PUT ON HOLD DUE TO VESSEL ISSUE PATIENT SURGERY IS NOW ON HOLD 12-01 [facility]ION SURGERY ON HOLD AT THIS MOMENT NO NEW COMPLAINTS DW RN AND PT Objective Vitals Vital Signs Date Time Temp Pulse Resp B/P (MAP) Pulse Ox O2 Delivery O2 Flow Rate FiO2 12/01/16 07:53 98.3 68 20 129/73 (91) 98 12/01/16 07:00 66 12/01/16 06:00 61 12/01/16 05:03 97 Nasal Cannula 2.00 12/01/16 05:00 58 12/01/16 04:00 64 12/01/16 03:00 98.3 63 18 113/75 (88) 98 12/01/16 03:00 63 12/01/16 02:00 59 12/01/16 01:00 60 12/01/16 00:00 64 11/30/16 23:00 98.4 63 19 103/65 (78) 94 11/30/16 23:00 66 11/30/16 22:00 68 11/30/16 21:00 66 11/30/16 20:00 98.6 68 19 112/72 (85) Arterial Line 11/30/16 20:00 70 11/30/16 19:00 73 11/30/16 18:00 72 11/30/16 17:00 68 11/30/16 16:00 68 11/30/16 15:18 97.8 68 16 121/76 (91) 95 11/30/16 15:00 67 11/30/16 14:00 66 11/30/16 13:00 70 11/30/16 12:24 68 11/30/16 11:00 98.5 69 16 123/77 (92) 69 11/30/16 11:00 70 11/30/16 11:00 97.7 70 18 145/93 (110) 98 149/74 (99) 11/30/16 09:30 97 Nasal Cannula 2.00 11/30/16 09:14 68 11/30/16 09:09 98.7 63 10 119/76 (90) 95 150/78 (102) I/O 11/30/16 11/30/16 11/30/16 12/01/16 12/01/16 12/01/16 07:00 15:00 23:00 07:00 15:00 23:00 Intake Total 240 ml 480 ml 480 ml Output Total 800 ml 200 ml 450 ml Balance -560 ml 280 ml 30 ml Intake Oral 240 ml 480 ml 480 ml Output Urine Total 800 ml 200 ml 450 ml # Bowel Movements 0 Result Diagram: 12/01/16 0630 12/01/16 0531 Other Results Last Impressions Chest X-Ray 12/01/16 0500 Signed Impressions: Service Date/Time: Thursday, December 01, 2016 03:58 - CONCLUSION: No acute cardiopulmonary abnormality is identified. Tawanda Solis MD Neck Ultrasound 11/30/16 0000 Signed Impressions: Service Date/Time: Wednesday, November 30, 2016 08:19 - CONCLUSION: Negative for pseudoaneurysm, thrombosis or occlusion. Barrie Handy MD FACR Chest CT 11/27/16 0000 Signed Impressions: Service Date/Time: Sunday, November 27, 2016 21:33 - CONCLUSION: 1. Other than trace left base atelectasis, the lungs are clear. 2. Mild panchamber enlargement of the heart. Calcified aortic valve and mildly prominent ascending aorta. Tawanda Garcia MD Carotid Artery Ultrasound 11/26/16 0000 Signed Impressions: Service Date/Time: November 09:25 - CONCLUSION: 1. Mild atherosclerotic disease bilaterally. However, no significant stenosis is present within either internal carotid artery (less than 50%% stenosis). 2. There is antegrade flow in both vertebral arteries. Tawanda Solis MD Laboratory Tests Test 11/29/16 07:04 11/30/16 05:25 11/30/16 15:49 12/01/16 05:31 Prothrombin Time 11.6 SEC 11.6 SEC Prothromb Time International Ratio 1.0 RATIO 1.0 RATIO White Blood Count 7.9 TH/MM3 Red Blood Count 4.54 MIL/MM3 Hemoglobin 12.8 GM/DL Hematocrit 39.1 % Mean Corpuscular Volume 86.2 FL Mean Corpuscular Hemoglobin 28.1 PG Mean Corpuscular Hemoglobin Concent 32.6 % Red Cell Distribution Width 13.9 % Platelet Count 181 TH/MM3 Mean Platelet Volume 9.7 FL Blood Urea Nitrogen 21 MG/DL Creatinine 0.99 MG/DL Random Glucose 92 MG/DL Total Protein 7.2 GM/DL Albumin 3.3 GM/DL Calcium Level 8.8 MG/DL Phosphorus Level 3.4 MG/DL Magnesium Level 2.2 MG/DL Alkaline Phosphatase 68 U/L Aspartate Amino Transf (AST/SGOT) 11 U/L Alanine Aminotransferase (ALT/SGPT) 21 U/L Total Bilirubin 0.6 MG/DL Sodium Level 140 MEQ/L Potassium Level 4.6 MEQ/L Chloride Level 103 MEQ/L Carbon Dioxide Level 30.3 MEQ/L Anion Gap 7 MEQ/L Estimat Glomerular Filtration Rate 74 ML/MIN Free Thyroxine 1.05 NG/DL Thyroid Stimulating Hormone 3rd Gen 1.730 uIU/ML Test 12/01/16 06:30 White Blood Count 8.2 TH/MM3 Red Blood Count 4.59 MIL/MM3 Hemoglobin 13.2 GM/DL Hematocrit 39.7 % Mean Corpuscular Volume 86.6 FL Mean Corpuscular Hemoglobin 28.7 PG Mean Corpuscular Hemoglobin Concent 33.2 % Red Cell Distribution Width 13.9 % Platelet Count 177 TH/MM3 Mean Platelet Volume 9.5 FL Neutrophils (%) (Auto) 73.9 % Lymphocytes (%) (Auto) 12.6 % Monocytes (%) (Auto) 10.9 % Eosinophils (%) (Auto) 2.3 % Basophils (%) (Auto) 0.3 % Neutrophils # (Auto) 6.1 TH/MM3 Lymphocytes # (Auto) 1.0 TH/MM3 Monocytes # (Auto) 0.9 TH/MM3 Eosinophils # (Auto) 0.2 TH/MM3 Basophils # (Auto) 0.0 TH/MM3 CBC Comment DIFF FINAL Differential Comment Objective Remarks GENERAL: AWAKE ALERT AND ORIENTED x4 SKIN: Warm and dry. NO RASHES HEAD: Atraumatic. Normocephalic. EYES: Pupils equal and round. No scleral icterus. No injection or drainage. EOMI ENT: No nasal bleeding or discharge. Mucous membranes pink and moist.TONGUE MIDLINE NECK: Trachea midline. No JVD. SUPPLE CARDIOVASCULAR: Regular rate and rhythm. S1, S2 NO S3 OR S4 NO HEAVE OR THRILL 3/6 BRIDGETTE RESPIRATORY: No accessory muscle use. Clear to auscultation. Breath sounds equal bilaterally. GASTROINTESTINAL: Abdomen soft, non-tender, nondistended. Hepatic and splenic margins not palpable. MUSCULOSKELETAL: Extremities without clubbing, cyanosis, or edema. No obvious deformities. NEUROLOGICAL: Awake and alert. No obvious cranial nerve deficits. Motor grossly within normal limits. Five out of 5 muscle strength in the arms and legs. Normal speech. PSYCHIATRIC: Appropriate mood and affect; insight and judgment normal. Procedures 11/24/2016 Cardiac cath 1. Moderate disease of the LAD that will be medically managed. 2. Aortic valve calcification and likely severe aortic stenosis. An echocardiogram will be obtained for further evaluation of this and the ejection fraction. Medications and IVs Current Medications Aspirin (Aspirin Chew) 324 mg ONCE ONCE PO Last administered on 11/24/16 11: 56; Start 11/24/16 at 12:00; Stop 11/24/16 at 12:01; Status DC Sodium Chloride (NS Flush) 2 ml UNSCH PRN IVF FLUSH AFTER USING IV ACCESS; Start 11/24/16 at 12:00; Stop 11/24/16 at 13:38; Status DC Heparin Sodium (Porcine) (Heparin Inj) 5,000 units ONCE ONCE IV Last administered on 11/24/16 12:59; Start 11/24/16 at 13:00; Stop 11/24/16 at 13:01 ; Status DC Heparin Sodium (Porcine) (Heparin Inj) 5,000 units UNSCH PRN IV APTT LESS THAN 25; Start 11/24/16 at 19:00; Stop 11/24/16 at 19:00; Status DC Heparin Sodium (Porcine) (Heparin Inj) 2,500 units UNSCH PRN IV APTT 25 TO 39; Start 11/24/16 at 19:00; Stop 11/24/16 at 19:00; Status DC Heparin Sodium/ Dextrose 250 ml @ 10.32 mls/ hr TITRATE PRN IV Coagulation management Last administered on 11/24/16 13:01; Start 11/24/16 at 13:00; Stop 11/24/16 at 17:51; Status DC Sodium Chloride 1,000 ml @ 100 mls/hr Q10H IV Last administered on 11/25/16 10:01; Start 11/24/16 at 12:47; Stop 11/29/16 at 12:46; Status DC Aspirin (Aspirin) 325 mg MENAGERIE CARETAKER PO ; Start 11/24/16 at 13:00; Stop 11/26/16 at 16:08; Status DC Fentanyl Citrate (fentaNYL INJ) 50 mcg MENAGERIE CARETAKER IV ; Start 11/24/16 at 13:00; Stop 11/28/16 at 12:59; Status DC Sodium Chloride (NS Flush) 2 ml BID IV FLUSH Last administered on 11/26/16 08: 57; Start 11/24/16 at 21:00; Stop 11/26/16 at 16:09; Status DC Sodium Chloride (NS Flush) 2 ml UNSCH PRN IV FLUSH FLUSH AFTER USING IV ACCESS ; Start 11/24/16 at 13:45; Stop 11/26/16 at 16:09; Status DC Aspirin (Ecotrin Ec) 325 mg DAILY PO Last administered on 11/29/16 08:17; Start 11/25/16 at 09:00; Stop 11/30/16 at 09:41; Status DC Carvedilol (Coreg) 3.125 mg BID PO Last administered on 11/30/16 21:29; Start 11/24/16 at 21:00 Atorvastatin Calcium (Lipitor) 10 mg HS PO Last administered on 11/28/16 21:54 ; Start 11/24/16 at 21:00; Stop 11/29/16 at 11:41; Status DC Heparin Sodium/ Sodium Chloride 1,000 ml @ As Directed STK-MED ONCE .ROUTE ; Start 11/24/16 at 15:21; Stop 11/24/16 at 15:22; Status DC Fentanyl Citrate (fentaNYL INJ) 100 mcg STK-MED ONCE .ROUTE Last administered on 11/24/16 15:22; Start 11/24/16 at 15:22; Stop 11/24/16 at 15:23; Status DC Sodium Chloride 1,000 ml @ 100 mls/hr Q10H IV Last administered on 11/24/16 17:52; Start 11/24/16 at 16:45; Stop 11/24/16 at 22:44; Status DC Miscellaneous Information 1 ONCE ONCE XX ; Start 11/24/16 at 16:45; Stop at 17:51; Status DC Atropine Sulfate (Atropine Inj) 0.5 mg UNSCH PRN IV VAGAL REPONSE; Start at 16:45; Stop 11/30/16 at 15:00; Status DC Sodium Chloride 250 ml @ 500 mls/hr ONCE PRN IV VAGAL REPONSE; Start 11/24/16 at 16:45; Stop 11/25/16 at 16:44; Status DC Metoclopramide HCl (Reglan Inj) 10 mg Q4H PRN IV NAUSEA; Start 11/24/16 at 16: 45 Ondansetron HCl (Zofran Inj) 4 mg Q4H PRN IV NAUSEA; Start 11/24/16 at 16:45; Stop 11/30/16 at 09:41; Status DC Iohexol (OMNIPAQUE 350 INJ (Stonecutter Hand)) 50 ml STK-MED ONCE OTHER ; Start at 15:15; Stop 11/25/16 at 07:04; Status DC Sodium Chloride (NS Flush) 2 ml BID IV FLUSH Last administered on 11/29/16t 20: 27; Start 11/26/16 at 21:00; Stop 11/30/16 at 09:38; Status DC Sodium Chloride (NS Flush) 2 ml UNSCH PRN IV FLUSH FLUSH AFTER USING IV ACCESS ; Start 11/26/16 at 16:00; Stop 11/30/16 at 09:38; Status DC Cefazolin Sodium 500 mg/Sodium Chloride 505 ml @ 0 mls/hr MENAGERIE CARETAKER IRRIGATION ; Start 11/26/16 at 16:00; Stop 12/03/16 at 15:59 Cefazolin Sodium/ Dextrose 50 ml @ 150 mls/hr MENAGERIE CARETAKER IV ; Start 11/26/16 at 16:00; Stop 12/03/16 at 15:59 Metoprolol Tartrate (Lopressor) 12.5 mg MENAGERIE CARETAKER PO ; Start 11/26/16 at 16:00; Stop 12/03/16 at 15:59 Chlorhexidine Gluconate (Hibiclens 4% Top Soln) 1 applic MENAGERIE CARETAKER TOPICAL Last administered on 11/30/16t 03:37; Start 11/26/16 at 16:00; Stop 11/30/16 at 15:25 ; Status DC Insulin Human Regular 100 units/ Sodium Chloride 101 ml @ 0 mls/hr Q0M IV ; Start 11/26/16 at 15:51; Stop 11/30/16 at 15:00; Status DC Miscellaneous (Pill Splitter) 1 ea UNSCH PRN OTHER SEE LABEL COMMENTS; Start at 16:15 Mupirocin (Bactroban Nasal 2% Oint) 1 applic BID EACH NARE Last administered on 11/30/16 21:29; Start 11/27/16 at 09:00; Stop 12/02/16 at 08:59 Atropine Sulfate (Atropine Inj) 1 mg STK-MED ONCE .ROUTE ; Start 11/27/16 at 21: 19; Stop 11/27/16 at 21:20; Status DC Epinephrine HCl (EPINEPHrine (1:10,000) INJ) 1 mg STK-MED ONCE .ROUTE ; Start at 21:20; Stop 11/27/16 at 21:21; Status DC Atorvastatin Calcium (Lipitor) 40 mg HS PO Last administered on 11/30/16 21:29 ; Start 11/29/16 at 21:00 Vancomycin HCl (Vancomycin Inj) 5,000 mg STK-MED ONCE .ROUTE ; Start 11/30/16 at 06:38; Stop 11/30/16 at 15:00; Status DC Cefazolin Sodium/ Dextrose 0 ml @ As Directed STK-MED ONCE .ROUTE ; Start at 06:39; Stop 11/30/16 at 15:00; Status DC Heparin Sodium (Porcine) (Heparin Inj) 40,000 units STK-MED ONCE .ROUTE Last administered on 11/30/16 06:39; Start 11/30/16 at 06:39; Stop 11/30/16 at 15:00 ; Status DC Multi-Ingred Electrol/Mineral Irrig 2,000 ml @ As Directed STK-MED ONCE .ROUTE ; Start 11/30/16 at 07:12; Stop 11/30/16 at 15:00; Status DC Sodium Bicarbonate 0 ml @ As Directed STK-MED ONCE .ROUTE ; Start 11/30/16 at 07 :12; Stop 11/30/16 at 15:00; Status DC Potassium Chloride (KCl Inj) 2 meq STK-MED ONCE .ROUTE ; Start 11/30/16 at 07:13 ; Stop 11/30/16 at 15:00; Status DC Potassium Chloride (KCl Inj) 2 meq STK-MED ONCE .ROUTE ; Start 11/30/16 at 07:13 ; Stop 11/30/16 at 15:00; Status DC Mannitol 0 ml @ As Directed STK-MED ONCE .ROUTE ; Start 11/30/16 at 07:13; Stop 11/30/16 at 15:00; Status DC Heparin Sodium (Porcine) (Heparin Inj) 10,000 units STK-MED ONCE .ROUTE ; Start 11/30/16 at 07:14; Stop 11/30/16 at 15:00; Status DC Albumin Human (Albumin 25% Inj) 12.5 gm STK-MED ONCE IV ; Start 11/30/16 at 07: 14; Stop 11/30/16 at 15:00; Status DC Bupivacaine Liposome 20 ml/ Dexamethasone Sodium Phosphate 4 mg/Morphine Sulfate 8 mg/ Sodium Chloride 43 ml @ 86 mls/hr UNSCH IRRIGATION ; Start at 07:30; Stop 11/30/16 at 09:30; Status DC Sugammadex Sodium (Bridion Inj) 400 mg STK-MED ONCE IV PUSH ; Start 11/30/16 at 08:03; Stop 11/30/16 at 15:00; Status DC Midazolam HCl (Versed Inj) 10 mg STK-MED ONCE .ROUTE ; Start 11/30/16 at 09:01; Stop 11/30/16 at 15:00; Status DC Fentanyl Citrate (fentaNYL INJ) 1,000 mcg STK-MED ONCE .ROUTE ; Start 11/30/16 at 09:01; Stop 11/30/16 at 15:00; Status DC Sodium Chloride (NS Flush) 2 ml BID IV FLUSH Last administered on 11/30/16t 12: 34; Start 11/30/16 at 09:15; Stop 11/30/16 at 15:26; Status DC Sodium Chloride (NS Flush) 2 ml UNSCH PRN IV FLUSH FLUSH AFTER USING IV ACCESS ; Start 11/30/16 at 09:15; Stop 11/30/16 at 15:26; Status DC Phenylephrine HCl 40 mg/Dextrose 500 ml @ 30 mls/hr [id number] PRN IV Maintain MAP > 65 mmHg; Start 11/30/16 at 09:07; Stop 11/30/16 at 15:00; Status DC Clevidipine 50 ml @ 2 mls/hr Q24H PRN IV Maintain BP < 140/90 mmHg; Start at 09:07; Stop 11/30/16 at 15:00; Status DC Aspirin (Aspirin Chew) 81 mg DAILY PO ; Start 12/01/16 at 09:00 Pantoprazole Sodium (Protonix) 40 mg DAILY@06 PO Last administered on t 06:08; Start 12/01/16 at 06:00 Acetaminophen (Tylenol) 650 mg Q4H PRN PO TEMPERATURE > 101 F; Start 11/30/16 at 09:15 Acetaminophen (Tylenol Supp) 650 mg Q4H PRN RECTAL TEMPERATURE > 101 F; Start 11/30/16 at 09:15; Stop 11/30/16 at 15:00; Status DC Ondansetron HCl (Zofran Inj) 4 mg Q6H PRN IV PUSH NAUSEA OR VOMITING; Start at 09:15 Hydralazine HCl (Apresoline Inj) 10 mg Q4H PRN IV SEE LABEL COMMENTS; Start at 09:15 Metoprolol Tartrate (Lopressor Inj) 2.5 mg Q1H PRN IV PUSH SEE LABEL COMMENTS; Start 11/30/16 at 09:15; Stop 11/30/16 at 15:00; Status DC Potassium Chloride 100 ml @ 50 mls/hr UNSCH PRN IV SEE LABEL COMMENTS; Start 11/30/16 at 09:15; Stop 11/30/16 at 15:00; Status DC Potassium Chloride 100 ml @ 50 mls/hr UNSCH PRN IV SEE LABEL COMMENTS; Start 11/30/16 at 09:15; Stop 11/30/16 at 15:00; Status DC Potassium Chloride 100 ml @ 50 mls/hr UNSCH PRN IV SEE LABEL COMMENTS; Start 11/30/16 at 09:15; Stop 11/30/16 at 15:00; Status DC Potassium Chloride (KCl) 20 meq UNSCH PRN PO SEE LABEL COMMENTS; Start at 09:15; Stop 11/30/16 at 15:00; Status DC Potassium Chloride (KCl) 40 meq UNSCH PRN PO SEE LABEL COMMENTS; Start at 09:15; Stop 11/30/16 at 15:00; Status DC Magnesium Sulfate 2 gm/Sodium Chloride 104 ml @ 100 mls/hr UNSCH PRN IV SEE LABEL COMMENTS; Start 11/30/16 at 09:15; Stop 11/30/16 at 15:00; Status DC Magnesium Sulfate 2 gm/Sodium Chloride 104 ml @ 50 mls/hr UNSCH PRN IV SEE LABEL COMMENTS; Start 11/30/16 at 09:15; Stop 11/30/16 at 15:00; Status DC Calcium Chloride 1 gm/Sodium Chloride 110 ml @ 100 mls/hr UNSCH PRN IV SEE LABEL COMMENTS; Start 11/30/16 at 09:15; Stop 11/30/16 at 15:00; Status DC Calcium Chloride (Calcium Chloride Inj) 0.5 gm UNSCH PRN IV SEE LABEL COMMENTS ; Start 11/30/16 at 09:15; Stop 11/30/16 at 15:00; Status DC Dextrose (D50w (Vial) Inj) 50 ml UNSCH PRN IV PUSH HYPOGLYCEMIA-SEE COMMENTS; Start 11/30/16 at 09:15 Albuterol/ Ipratropium (Duoneb Neb) 1 ampule Q6HR NEB NEB ; Start 11/30/16 at 10:00; Stop 11/30/16 at 15:00; Status DC Albuterol/ Ipratropium (Duoneb Neb) 1 ampule Q2HR NEB PRN NEB WHEEZING; Start 11/30/16 at 09:15; Stop 11/30/16 at 15:00; Status DC Racepinephrine (Racepinephrine 2.25% Neb) 0.5 ml UNSCH X1 PRN NEB STRIDOR; Start 11/30/16 at 09:15; Stop 11/30/16 at 15:00; Status DC Sodium Chloride (NS Flush) 2 ml BID IV FLUSH Last administered on 11/30/16t 21: 30; Start 11/30/16 at 21:00 Sodium Chloride (NS Flush) 2 ml UNSCH PRN IV FLUSH FLUSH AFTER USING IV ACCESS ; Start 11/30/16 at 15:00 Chlorhexidine Gluconate (Hibiclens 4% Top Soln) 1 applic MENAGERIE CARETAKER TOPICAL ; Start 11/30/16 at 16:00; Stop 12/07/16 at 15:59 Insulin Human Regular 100 units/ Sodium Chloride 101 ml @ 0 mls/hr Q0M IV ; Start 11/30/16 at 14:59; Stop 11/30/16 at 16:13; Status DC Insulin Human Regular 100 units/ Sodium Chloride 100 ml @ 3 mls/hr TITRATE PRN IV For Glucose Control; Start 11/30/16 at 16:15; Stop 12/07/16 at 16:14 Urinary Catheter: Yes Vascular Central Line Catheter: No A/P Problem List: (1) Chest pain ICD Code: R07.9 - Chest pain, unspecified Status: Acute (2) NSTEMI (non-ST elevated myocardial infarction) ICD Code: I21.4 - Non-ST elevation (NSTEMI) myocardial infarction Status: Acute (3) Severe aortic stenosis ICD Code: I35.0 - Nonrheumatic aortic (valve) stenosis (4) Hyperlipemia ICD Code: E78.5 - Hyperlipidemia, unspecified (5) Hypertension ICD Code: I10 - Essential (primary) hypertension (6) Chest pain ICD Code: R07.9 - Chest pain, unspecified Assessment and Plan Patient is a 76-year-old male with primary medical history of hyperlipidemia who came into the hospital for complaints of chest pain. Patient states that he woke up sweating and was feeling "yucky." States he feels like he has "flu type of feeling." States when he got up he got dizzy. States he has a little bit of chest pain midsternal area, does not radiate anywhere, it is unrelieved by rest, not aggravated by any movement. Patient was then taken to have cardiac catheterization done by Dr. Bueno. Moderate LAD disease found. However, severe was found. CV surgery consulted. - NSTEMI - Hyperlipidemia - Troponins 0.22, 0.21. s/p Cath --> moderate LAD disease. Medical management. - Continue Aspirin 325mg, Lipitor 10mg, Carvedilol 3.125mg BID. - If okay with Cardiology, Aspirin can be reduced to 81mg Qday - Increase Lipitor from 10mg QHS to 40mg QHS. - Severe aortic stenosis - CV surgery following. Probable Mini AVR replacement OFF SCHEDULE - CARDIAC DIET Full code. SCDs. SURGERY ON HOLD SEVERE AORTIC STENOSIS FOR SURGERY LATER THIS WEEK RIGHT NECK HEMATOMA DUE TO CAROTID ARTERY DW RN AND PT PT AND OT EVAL AND TREAT AM LABS Problem Qualifiers (1) Chest pain: Qualified Codes: R07.9 - Chest pain, unspecified Barrie Morris DO Dec 01, 2016 08:39
[2016-12-01] MEDS: MUPIROCIN 2% OINT 1 APPLIC/GM SYR EACH NARE SCH ×2 (09:14→20:56)
[2016-12-01] MEDS: CARVEDILOL 3.125 MG TAB PO SCH ×2 (09:14→20:56)
[2016-12-01] MEDS: ASPIRIN 81 MG CHEW TAB PO SCH (09:14)
[2016-12-01] MEDS: SODIUM CHLORIDE 0.9% FLUSH 10 ML FLUSH IV FLUSH SCH ×2 (09:15→21:08)
--- NOTE | 2016-12-01 11:13 | RSPPFT ---
DATE OF PROCEDURE: 11/26/16 COMMENTS: The forced vital capacity shows a slight reduction. The FEV1 and FEF 25-75 are both mildly reduced. The FEV1/FVC ratio is normal. IMPRESSION: This is compatible with mild, large and small airways, obstructive lung disease. There may be a small restrictive component.
--- NOTE | 2016-12-01 12:11 | PD.CAR.PN ---
CVT Progress Note Subjective/Hospital Course: 76/ male presented to ED with chest pain , elevated troponins , underwent cardiac cath which revealed 30-50% stenosis in mid LAD, ECHO showed mean aortic gradient of 50mmhg / severe aortic stenosis / SRS mortality 1.84 pt has been evaluated for Minimally invasive Aortic valve replacement on Thursday 11/30 PMH: HLP, heart murmur CT chest without contrast pending carotid US < 50% stenosis bilaterally EF 50% 11/30 pt went into OR, when undergoing CVC line placement , there was difficulty with hematoma right neck area OR aborted, pt sent to CVICU for Observation / Pt A&0 x 4 , moves all extremities small hematoma right neck area 12/01 pt up in chair, ambulating well per PT right neck with mild swelling, no hematoma scheduled for surgery on wednesday Objective: GENERAL: SKIN: Warm and dry. HEAD: Atraumatic. Normocephalic. EYES: Pupils equal and round. No scleral icterus. No injection or drainage. ENT: No nasal bleeding or discharge. Mucous membranes pink and moist. NECK: Trachea midline. No JVD. right neck with mild swelling, no crepitus, no hematoma , faint ecchymosis CARDIOVASCULAR: Regular rate and rhythm. RESPIRATORY: No accessory muscle use. Clear to auscultation. Breath sounds equal bilaterally. GASTROINTESTINAL: Abdomen soft, non-tender, nondistended. Hepatic and splenic margins not palpable. MUSCULOSKELETAL: Extremities without clubbing, cyanosis, or edema. No obvious deformities. NEUROLOGICAL: Awake and alert. No obvious cranial nerve deficits. Motor grossly within normal limits. Five out of 5 muscle strength in the arms and legs. Normal speech. PSYCHIATRIC: Appropriate mood and affect; insight and judgment normal. Vital Signs Date Time Temp Pulse Resp B/P (MAP) Pulse Ox O2 Delivery O2 Flow Rate FiO2 12/01/16 07:53 98.3 68 20 129/73 (91) 98 12/01/16 07:00 66 12/01/16 06:00 61 12/01/16 05:03 97 Nasal Cannula 2.00 12/01/16 05:00 58 12/01/16 04:00 64 12/01/16 03:00 98.3 63 18 113/75 (88) 98 12/01/16 03:00 63 12/01/16 02:00 59 12/01/16 01:00 60 12/01/16 00:00 64 11/30/16 23:00 98.4 63 19 103/65 (78) 94 11/30/16 23:00 66 11/30/16 22:00 68 11/30/16 21:00 66 11/30/16 20:00 98.6 68 19 112/72 (85) Arterial Line 11/30/16 20:00 70 11/30/16 19:00 73 11/30/16 18:00 72 11/30/16 17:00 68 11/30/16 16:00 68 11/30/16 15:18 97.8 68 16 121/76 (91) 95 11/30/16 15:00 67 11/30/16 14:00 66 11/30/16 13:00 70 11/30/16 12:24 68 Labs: Laboratory Tests Test 12/01/16 05:31 12/01/16 06:30 Blood Urea Nitrogen 21 MG/DL (7-18) Creatinine 0.99 MG/DL (0.60-1.30) Random Glucose 92 MG/DL (74-106) Total Protein 7.2 GM/DL (6.4-8.2) Albumin 3.3 GM/DL (3.4-5.0) Calcium Level 8.8 MG/DL (8.5-10.1) Phosphorus Level 3.4 MG/DL (2.5-4.9) Magnesium Level 2.2 MG/DL (1.5-2.5) Alkaline Phosphatase 68 U/L (45-117) Aspartate Amino Transf (AST/SGOT) 11 U/L (15-37) Alanine Aminotransferase (ALT/SGPT) 21 U/L (12-78) Total Bilirubin 0.6 MG/DL (0.2-1.0) Sodium Level 140 MEQ/L (136-145) Potassium Level 4.6 MEQ/L (3.5-5.1) Chloride Level 103 MEQ/L (98-107) Carbon Dioxide Level 30.3 MEQ/L (21.0-32.0) Anion Gap 7 MEQ/L (5-15) Estimat Glomerular Filtration Rate 74 ML/MIN (>89) Free Thyroxine 1.05 NG/DL (0.76-1.46) Thyroid Stimulating Hormone 3rd Gen 1.730 uIU/ML (0.358-3.740) White Blood Count 8.2 TH/MM3 (4.0-11.0) Red Blood Count 4.59 MIL/MM3 (4.50-5.90) Hemoglobin 13.2 GM/DL (13.0-17.0) Hematocrit 39.7 % (39.0-51.0) Mean Corpuscular Volume 86.6 FL (80.0-100.0) Mean Corpuscular Hemoglobin 28.7 PG (27.0-34.0) Mean Corpuscular Hemoglobin Concent 33.2 % (32.0-36.0) Red Cell Distribution Width 13.9 % (11.6-17.2) Platelet Count 177 TH/MM3 (150-450) Mean Platelet Volume 9.5 FL (7.0-11.0) Neutrophils (%) (Auto) 73.9 % (16.0-70.0) Lymphocytes (%) (Auto) 12.6 % (9.0-44.0) Monocytes (%) (Auto) 10.9 % (0.0-8.0) Eosinophils (%) (Auto) 2.3 % (0.0-4.0) Basophils (%) (Auto) 0.3 % (0.0-2.0) Neutrophils # (Auto) 6.1 TH/MM3 (1.8-7.7) Lymphocytes # (Auto) 1.0 TH/MM3 (1.0-4.8) Monocytes # (Auto) 0.9 TH/MM3 (0-0.9) Eosinophils # (Auto) 0.2 TH/MM3 (0-0.4) Basophils # (Auto) 0.0 TH/MM3 (0-0.2) CBC Comment DIFF FINAL Differential Comment Result Diagram: 12/01/1630 12/01/16 0531 Telemetry: NSR (1) Chest pain Plan: ASA, statin , BB (2) Severe aortic stenosis Plan: OR cancelled yesterday , pt developed hematoma while having right IJ CVC line placed NECK US : no pseudoaneurysm, thrombosis for mini AVR on wednesday (3) Hypertension Plan: BP control (4) Hyperlipemia Myesha Manzo Dec 01, 2016 12:10
[2016-12-01 12:49] LABS: HEMOGLOBIN A1b 1.9 %; HEMOGLOBIN Ao 84.7 %; HEMOGLOBIN P3 4.2 %
[2016-12-01] MEDS: MENTHOL LOZENGE BUCCAL PRN ×2 (17:23→21:08)
[2016-12-01] MEDS: ATORVASTATIN 10 MG TAB PO SCH (20:56)
[2016-12-02] VITALS (27 sets, daily range): BP systolic 108–140; BP diastolic 57–81; PULSE 54–87; RESP 16–20; TEMP 97.8–98.6; O2SAT 96–98
[2016-12-02] MEDS: MENTHOL LOZENGE BUCCAL PRN ×4 (06:31→19:04)
[2016-12-02] MEDS: PANTOPRAZOLE SOD 40 MG DELAYED RELEASE TAB PO SCH (06:31)
[2016-12-02 06:58] LABS: AUTOMATED NEUTROPHIL # 5.6 TH/MM3 (1.8-7.7); BASOPHIL % 0.3 % (0.0-2.0); EOSINOPHIL # 0.2 TH/MM3 (0-0.4); EOSINOPHIL % 2.4 % (0.0-4.0); HEMATOCRIT 38.6 % (39.0-51.0); HEMO FLAGS DIFF FINAL; LYMPH % 15.5 % (9.0-44.0); LYMPHOCYTE # 1.2 TH/MM3 (1.0-4.8); MEAN CELL VOLUME 87.1 FL (80.0-100.0); MEAN CORPUSCULAR HEMOGLOBIN 28.4 PG (27.0-34.0); MEAN CORPUSCULAR HGB CONC 32.6 % (32.0-36.0); NEUT % 69.8 % (16.0-70.0); PLATELET COUNT 178 TH/MM3 (150-450); RED BLOOD COUNT 4.43 MIL/MM3 (4.50-5.90); RED CELL DISTRIBUTION WIDTH 13.7 % (11.6-17.2)
[2016-12-02 07:04] LABS: ANION GAP 7 MEQ/L (5-15); AST (GOT) 10 U/L (15-37); BICARBONATE 30.2 MEQ/L (21.0-32.0); BLOOD UREA NITROGEN 20 MG/DL (7-18); CHLORIDE 104 MEQ/L (98-107); GLOMERULAR FILTRATION RATE 75 ML/MIN (>89); MAGNESIUM 2.2 MG/DL (1.5-2.5); POTASSIUM 4.3 MEQ/L (3.5-5.1); SODIUM (NA) 141 MEQ/L (136-145)
[2016-12-02 07:07] LABS: ALKALINE PHOSPHATASE 61 U/L (45-117); ALT (GPT) 19 U/L (12-78); TOTAL BILIRUBIN ADULT 0.5 MG/DL (0.2-1.0)
--- NOTE | 2016-12-02 08:47 | HHI.PR ---
Subjective Remarks 11-30 SURGERY PUT ON HOLD DUE TO VESSEL ISSUE PATIENT SURGERY IS NOW ON HOLD 12-01 PATIENT TRANSFERRED TO [facility]-HAS HEMATOMA ON RIGHT NECK REGION SURGERY ON HOLD AT THIS MOMENT NO NEW COMPLAINTS DW RN AND PT 12-02 FOR SURGERY TOMORROW OR THE NEXT DAY NO CURRENT COMPLAINTS LEFT NECK HEMATOMA IMPROVED DW RN AND PT COMPLAINS OF SOME BURNING ON URINATION- PYRIDIUM Objective Vitals Vital Signs Date Time Temp Pulse Resp B/P (MAP) Pulse Ox O2 Delivery O2 Flow Rate FiO2 12/02/16 08:11 97.9 64 18 140/81 (100) 96 12/02/16 05:00 57 12/02/16 04:47 98.2 56 16 135/79 (97) 98 12/02/16 04:45 98.6 59 18 135/79 (97) 97 12/02/16 04:00 54 12/02/16 03:00 55 12/02/16 02:00 67 12/02/16 01:00 72 12/02/16 00:00 74 12/01/16 23:51 98.0 75 18 107/63 (78) 98 12/01/16 23:00 59 12/01/16 22:00 59 12/01/16 21:00 62 12/01/16 20:00 71 12/01/16 20:00 98.7 68 18 115/73 (87) 98 12/01/16 19:00 74 12/01/16 18:00 72 12/01/16 17:08 76 12/01/16 16:00 70 12/01/16 15:08 98.9 70 20 107/65 (79) 98 12/01/16 15:00 70 12/01/16 14:00 68 12/01/16 13:00 72 12/01/16 12:00 70 12/01/16 11:00 72 12/01/16 11:00 97.8 67 20 100/63 (75) 97 12/01/16 10:00 70 12/01/16 09:00 70 I/O 12/01/16 12/01/16 12/01/16 12/02/16 12/02/16 12/02/16 07:00 15:00 23:00 07:00 15:00 23:00 Intake Total 480 ml 720 ml 240 ml Output Total 450 ml 900 ml 425 ml Balance 30 ml -180 ml -185 ml Intake Oral 480 ml 720 ml 240 ml Output Urine Total 450 ml 900 ml 425 ml Result Diagram: 12/02/16 0501 12/02/16 0501 Other Results Laboratory Tests Test 11/30/16 05:25 11/30/16 15:49 12/01/16 05:31 12/01/16 06:30 White Blood Count 7.9 TH/MM3 8.2 TH/MM3 Red Blood Count 4.54 MIL/MM3 4.59 MIL/MM3 Hemoglobin 12.8 GM/DL 13.2 GM/DL Hematocrit 39.1 % 39.7 % Mean Corpuscular Volume 86.2 FL 86.6 FL Mean Corpuscular Hemoglobin 28.1 PG 28.7 PG Mean Corpuscular Hemoglobin Concent 32.6 % 33.2 % Red Cell Distribution Width 13.9 % 13.9 % Platelet Count 181 TH/MM3 177 TH/MM3 Mean Platelet Volume 9.7 FL 9.5 FL Prothrombin Time 11.6 SEC Prothromb Time International Ratio 1.0 RATIO Blood Urea Nitrogen 21 MG/DL Creatinine 0.99 MG/DL Random Glucose 92 MG/DL Total Protein 7.2 GM/DL Albumin 3.3 GM/DL Calcium Level 8.8 MG/DL Phosphorus Level 3.4 MG/DL Magnesium Level 2.2 MG/DL Alkaline Phosphatase 68 U/L Aspartate Amino Transf (AST/SGOT) 11 U/L Alanine Aminotransferase (ALT/SGPT) 21 U/L Total Bilirubin 0.6 MG/DL Sodium Level 140 MEQ/L Potassium Level 4.6 MEQ/L Chloride Level 103 MEQ/L Carbon Dioxide Level 30.3 MEQ/L Anion Gap 7 MEQ/L Estimat Glomerular Filtration Rate 74 ML/MIN Hemoglobin A1c 5.8 % Free Thyroxine 1.05 NG/DL Thyroid Stimulating Hormone 3rd Gen 1.730 uIU/ML Neutrophils (%) (Auto) 73.9 % Lymphocytes (%) (Auto) 12.6 % Monocytes (%) (Auto) 10.9 % Eosinophils (%) (Auto) 2.3 % Basophils (%) (Auto) 0.3 % Neutrophils # (Auto) 6.1 TH/MM3 Lymphocytes # (Auto) 1.0 TH/MM3 Monocytes # (Auto) 0.9 TH/MM3 Eosinophils # (Auto) 0.2 TH/MM3 Basophils # (Auto) 0.0 TH/MM3 CBC Comment DIFF FINAL Differential Comment Test 12/02/16 05:01 White Blood Count 8.0 TH/MM3 Red Blood Count 4.43 MIL/MM3 Hemoglobin 12.6 GM/DL Hematocrit 38.6 % Mean Corpuscular Volume 87.1 FL Mean Corpuscular Hemoglobin 28.4 PG Mean Corpuscular Hemoglobin Concent 32.6 % Red Cell Distribution Width 13.7 % Platelet Count 178 TH/MM3 Mean Platelet Volume 9.8 FL Neutrophils (%) (Auto) 69.8 % Lymphocytes (%) (Auto) 15.5 % Monocytes (%) (Auto) 12.0 % Eosinophils (%) (Auto) 2.4 % Basophils (%) (Auto) 0.3 % Neutrophils # (Auto) 5.6 TH/MM3 Lymphocytes # (Auto) 1.2 TH/MM3 Monocytes # (Auto) 1.0 TH/MM3 Eosinophils # (Auto) 0.2 TH/MM3 Basophils # (Auto) 0.0 TH/MM3 CBC Comment DIFF FINAL Differential Comment Blood Urea Nitrogen 20 MG/DL Creatinine 0.97 MG/DL Random Glucose 95 MG/DL Total Protein 7.0 GM/DL Albumin 3.2 GM/DL Calcium Level 8.5 MG/DL Phosphorus Level 3.2 MG/DL Magnesium Level 2.2 MG/DL Alkaline Phosphatase 61 U/L Aspartate Amino Transf (AST/SGOT) 10 U/L Alanine Aminotransferase (ALT/SGPT) 19 U/L Total Bilirubin 0.5 MG/DL Sodium Level 141 MEQ/L Potassium Level 4.3 MEQ/L Chloride Level 104 MEQ/L Carbon Dioxide Level 30.2 MEQ/L Anion Gap 7 MEQ/L Estimat Glomerular Filtration Rate 75 ML/MIN Imaging Last Impressions Chest X-Ray 12/01/16 0500 Signed Impressions: Service Date/Time: Thursday, December 01, 2016 03:58 - CONCLUSION: No acute cardiopulmonary abnormality is identified. Tawanda Solis MD Neck Ultrasound 11/30/16 0000 Signed Impressions: Service Date/Time: Wednesday, November 30, 2016 08:19 - CONCLUSION: Negative for pseudoaneurysm, thrombosis or occlusion. Barrie Handy MD FACR Chest CT 11/27/16 0000 Signed Impressions: Service Date/Time: Sunday, November 27, 2016 21:33 - CONCLUSION: 1. Other than trace left base atelectasis, the lungs are clear. 2. Mild panchamber enlargement of the heart. Calcified aortic valve and mildly prominent ascending aorta. Tawanda Garcia MD Carotid Artery Ultrasound 11/26/16 0000 Signed Impressions: Service Date/Time: November 09:25 - CONCLUSION: 1. Mild atherosclerotic disease bilaterally. However, no significant stenosis is present within either internal carotid artery (less than 50%% stenosis). 2. There is antegrade flow in both vertebral arteries. Tawanda Solis MD Objective Remarks GENERAL: AWAKE ALERT AND ORIENTED x4 SKIN: Warm and dry. NO RASHES HEAD: Atraumatic. Normocephalic. EYES: Pupils equal and round. No scleral icterus. No injection or drainage. EOMI ENT: No nasal bleeding or discharge. Mucous membranes pink and moist.TONGUE MIDLINE NECK: Trachea midline. No JVD. SUPPLE CARDIOVASCULAR: Regular rate and rhythm. S1, S2 NO S3 OR S4 NO HEAVE OR THRILL 3/6 [place] RESPIRATORY: No accessory muscle use. Clear to auscultation. Breath sounds equal bilaterally. GASTROINTESTINAL: Abdomen soft, non-tender, nondistended. Hepatic and splenic margins not palpable. MUSCULOSKELETAL: Extremities without clubbing, cyanosis, or edema. No obvious deformities. NEUROLOGICAL: Awake and alert. No obvious cranial nerve deficits. Motor grossly within normal limits. Five out of 5 muscle strength in the arms and legs. Normal speech. PSYCHIATRIC: Appropriate mood and affect; insight and judgment normal. Procedures 11/24/2016 Cardiac cath 1. Moderate disease of the LAD that will be medically managed. 2. Aortic valve calcification and likely severe aortic stenosis. An echocardiogram will be obtained for further evaluation of this and the ejection fraction. Medications and IVs Current Medications Aspirin (Aspirin Chew) 324 mg ONCE ONCE PO Last administered on 11/24/16 11: 56; Start 11/24/16 at 12:00; Stop 11/24/16 at 12:01; Status DC Sodium Chloride (NS Flush) 2 ml UNSCH PRN IVF FLUSH AFTER USING IV ACCESS; Start 11/24/16 at 12:00; Stop 11/24/16 at 13:38; Status DC Heparin Sodium (Porcine) (Heparin Inj) 5,000 units ONCE ONCE IV Last administered on 11/24/16 12:59; Start 11/24/16 at 13:00; Stop 11/24/16 at 13:01 ; Status DC Heparin Sodium (Porcine) (Heparin Inj) 5,000 units UNSCH PRN IV APTT LESS THAN 25; Start 11/24/16 at 19:00; Stop 11/24/16 at 19:00; Status DC Heparin Sodium (Porcine) (Heparin Inj) 2,500 units UNSCH PRN IV APTT 25 TO 39; Start 11/24/16 at 19:00; Stop 11/24/16 at 19:00; Status DC Heparin Sodium/ Dextrose 250 ml @ 10.32 mls/ hr TITRATE PRN IV Coagulation management Last administered on 11/24/16 13:01; Start 11/24/16 at 13:00; Stop 11/24/16 at 17:51; Status DC Sodium Chloride 1,000 ml @ 100 mls/hr Q10H IV Last administered on 11/25/16 10:01; Start 11/24/16 at 12:47; Stop 11/29/16 at 12:46; Status DC Aspirin (Aspirin) 325 mg [employer]IEF D[employer]ITAL MEDIA OFFICER PO ; Start 11/24/16 at 13:00; Stop 11/26/16 at 16:08; Status DC Fentanyl Citrate (fentaNYL INJ) 50 mcg [employer]IEF [employer] MEDIA OFFICER IV ; Start 11/24/16 at 13:00; Stop 11/28/16 at 12:59; Status DC Sodium Chloride (NS Flush) 2 ml BID IV FLUSH Last administered on 11/26/16 08: 57; Start 11/24/16 at 21:00; Stop 11/26/16 at 16:09; Status DC Sodium Chloride (NS Flush) 2 ml UNSCH PRN IV FLUSH FLUSH AFTER USING IV ACCESS ; Start 11/24/16 at 13:45; Stop 11/26/16 at 16:09; Status DC Aspirin (Ecotrin Ec) 325 mg DAILY PO Last administered on 11/29/16 08:17; Start 11/25/16 at 09:00; Stop 11/30/16 at 09:41; Status DC Carvedilol (Coreg) 3.125 mg BID PO Last administered on 12/01/16 20:56; Start 11/24/16 at 21:00 Atorvastatin Calcium (Lipitor) 10 mg HS PO Last administered on 11/28/16 21:54 ; Start 11/24/16 at 21:00; Stop 11/29/16 at 11:41; Status DC Heparin Sodium/ Sodium Chloride 1,000 ml @ As Directed STK-MED ONCE .ROUTE ; Start 11/24/16 at 15:21; Stop 11/24/16 at 15:22; Status DC Fentanyl Citrate (fentaNYL INJ) 100 mcg STK-MED ONCE .ROUTE Last administered on 11/24/16 15:22; Start 11/24/16 at 15:22; Stop 11/24/16 at 15:23; Status DC Sodium Chloride 1,000 ml @ 100 mls/hr Q10H IV Last administered on 11/24/16 17:52; Start 11/24/16 at 16:45; Stop 11/24/16 at 22:44; Status DC Miscellaneous Information 1 ONCE ONCE XX ; Start 11/24/16 at 16:45; Stop at 17:51; Status DC Atropine Sulfate (Atropine Inj) 0.5 mg UNSCH PRN IV VAGAL REPONSE; Start at 16:45; Stop 11/30/16 at 15:00; Status DC Sodium Chloride 250 ml @ 500 mls/hr ONCE PRN IV VAGAL REPONSE; Start 11/24/16 at 16:45; Stop 11/25/16 at 16:44; Status DC Metoclopramide HCl (Reglan Inj) 10 mg Q4H PRN IV NAUSEA; Start 11/24/16 at 16: 45 Ondansetron HCl (Zofran Inj) 4 mg Q4H PRN IV NAUSEA; Start 11/24/16 at 16:45; Stop 11/30/16 at 09:41; Status DC Iohexol (OMNIPAQUE 350 INJ (Vehicle Calibration Engineer)) 50 ml STK-MED ONCE OTHER ; Start at 15:15; Stop 11/25/16 at 07:04; Status DC Sodium Chloride (NS Flush) 2 ml BID IV FLUSH Last administered on 11/29/16 20: 27; Start 11/26/16 at 21:00; Stop 11/30/16 at 09:38; Status DC Sodium Chloride (NS Flush) 2 ml UNSCH PRN IV FLUSH FLUSH AFTER USING IV ACCESS ; Start 11/26/16 at 16:00; Stop 11/30/16 at 09:38; Status DC Cefazolin Sodium 500 mg/Sodium Chloride 505 ml @ 0 mls/hr [employer] MEDIA OFFICER IRRIGATION ; Start 11/26/16 at 16:00; Stop 12/03/16 at 15:59 Cefazolin Sodium/ Dextrose 50 ml @ 150 mls/hr [employer]IA OFFICER IV ; Start 11/26/16 at 16:00; Stop 12/03/16 at 15:59 Metoprolol Tartrate (Lopressor) 12.5 mg [employer]F [employer] MEDIA OFFICER PO ; Start 11/26/16 at 16:00; Stop 12/03/16 at 15:59 Chlorhexidine Gluconate (Hibiclens 4% Top Soln) 1 applic [employer] MEDIA OFFICER TOPICAL Last administered on 11/30/16 03:37; Start 11/26/16 at 16:00; Stop 11/30/16 at 15:25 ; Status DC Insulin Human Regular 100 units/ Sodium Chloride 101 ml @ 0 mls/hr Q0M IV ; Start 11/26/16 at 15:51; Stop 11/30/16 at 15:00; Status DC Miscellaneous (Pill Splitter) 1 ea UNSCH PRN OTHER SEE LABEL COMMENTS; Start at 16:15 Mupirocin (Bactroban Nasal 2% Oint) 1 applic BID EACH NARE Last administered on 12/01/16 20:56; Start 11/27/16 at 09:00; Stop 12/02/16 at 08:59 Atropine Sulfate (Atropine Inj) 1 mg STK-MED ONCE .ROUTE ; Start 11/27/16 at 21: 19; Stop 11/27/16 at 21:20; Status DC Epinephrine HCl (EPINEPHrine (1:10,000) INJ) 1 mg STK-MED ONCE .ROUTE ; Start at 21:20; Stop 11/27/16 at 21:21; Status DC Atorvastatin Calcium (Lipitor) 40 mg HS PO Last administered on 12/01/16 20:56 ; Start 11/29/16 at 21:00 Vancomycin HCl (Vancomycin Inj) 5,000 mg STK-MED ONCE .ROUTE ; Start 11/30/16 at 06:38; Stop 11/30/16 at 15:00; Status DC Cefazolin Sodium/ Dextrose 0 ml @ As Directed STK-MED ONCE .ROUTE ; Start at 06:39; Stop 11/30/16 at 15:00; Status DC Heparin Sodium (Porcine) (Heparin Inj) 40,000 units STK-MED ONCE .ROUTE Last administered on 11/30/16t 06:39; Start 11/30/16 at 06:39; Stop 11/30/16 at 15:00 ; Status DC Multi-Ingred Electrol/Mineral Irrig 2,000 ml @ As Directed STK-MED ONCE .ROUTE ; Start 11/30/16 at 07:12; Stop 11/30/16 at 15:00; Status DC Sodium Bicarbonate 0 ml @ As Directed STK-MED ONCE .ROUTE ; Start 11/30/16 at 07 :12; Stop 11/30/16 at 15:00; Status DC Potassium Chloride (KCl Inj) 2 meq STK-MED ONCE .ROUTE ; Start 11/30/16 at 07:13 ; Stop 11/30/16 at 15:00; Status DC Potassium Chloride (KCl Inj) 2 meq STK-MED ONCE .ROUTE ; Start 11/30/16 at 07:13 ; Stop 11/30/16 at 15:00; Status DC Mannitol 0 ml @ As Directed STK-MED ONCE .ROUTE ; Start 11/30/16 at 07:13; Stop 11/30/16 at 15:00; Status DC Heparin Sodium (Porcine) (Heparin Inj) 10,000 units STK-MED ONCE .ROUTE ; Start 11/30/16 at 07:14; Stop 11/30/16 at 15:00; Status DC Albumin Human (Albumin 25% Inj) 12.5 gm STK-MED ONCE IV ; Start 11/30/16 at 07: 14; Stop 11/30/16 at 15:00; Status DC Bupivacaine Liposome 20 ml/ Dexamethasone Sodium Phosphate 4 mg/Morphine Sulfate 8 mg/ Sodium Chloride 43 ml @ 86 mls/hr UNSCH IRRIGATION ; Start at 07:30; Stop 11/30/16 at 09:30; Status DC Sugammadex Sodium ([place]ridion Inj) 400 mg STK-MED ONCE IV PUSH ; Start 11/30/16 at 08:03; Stop 11/30/16 at 15:00; Status DC Midazolam HCl (Versed Inj) 10 mg STK-MED ONCE .ROUTE ; Start 11/30/16 at 09:01; Stop 11/30/16 at 15:00; Status DC Fentanyl Citrate (fentaNYL INJ) 1,000 mcg [facility]-MED ONCE .ROUTE ; Start 11/30/16 at 09:01; Stop 11/30/16 at 15:00; Status DC Sodium Chloride (NS Flush) 2 ml BID IV FLUSH Last administered on 11/30/16 12: 34; Start 11/30/16 at 09:15; Stop 11/30/16 at 15:26; Status DC Sodium Chloride (NS Flush) 2 ml UNSCH PRN IV FLUSH FLUSH AFTER USING IV ACCESS ; Start 11/30/16 at 09:15; Stop 11/30/16 at 15:26; Status DC Phenylephrine HCl 40 mg/Dextrose 500 ml @ 30 mls/hr [id number] PRN IV Maintain MAP > 65 mmHg; Start 11/30/16 at 09:07; Stop 11/30/16 at 15:00; Status DC Clevidipine 50 ml @ 2 mls/hr Q24H PRN IV Maintain BP < 140/90 mmHg; Start at 09:07; Stop 11/30/16 at 15:00; Status DC Aspirin (Aspirin Chew) 81 mg DAILY PO Last administered on 12/01/16 09:14; Start 12/01/16 at 09:00 Pantoprazole Sodium (Protonix) 40 mg DAILY@06 PO Last administered on 06:31; Start 12/01/16 at 06:00 Acetaminophen (Tylenol) 650 mg Q4H PRN PO TEMPERATURE > 101 F; Start 11/30/16 at 09:15 Acetaminophen (Tylenol Supp) 650 mg Q4H PRN RECTAL TEMPERATURE > 101 F; Start 11/30/16 at 09:15; Stop 11/30/16 at 15:00; Status DC Ondansetron HCl (Zofran Inj) 4 mg Q6H PRN IV PUSH NAUSEA OR VOMITING; Start at 09:15 Hydralazine HCl (Apresoline Inj) 10 mg Q4H PRN IV SEE LABEL COMMENTS; Start at 09:15 Metoprolol Tartrate (Lopressor Inj) 2.5 mg Q1H PRN IV PUSH SEE LABEL COMMENTS; Start 11/30/16 at 09:15; Stop 11/30/16 at 15:00; Status DC Potassium Chloride 100 ml @ 50 mls/hr UNSCH PRN IV SEE LABEL COMMENTS; Start 11/30/16 at 09:15; Stop 11/30/16 at 15:00; Status DC Potassium Chloride 100 ml @ 50 mls/hr UNSCH PRN IV SEE LABEL COMMENTS; Start 11/30/16 at 09:15; Stop 11/30/16 at 15:00; Status DC Potassium Chloride 100 ml @ 50 mls/hr UNSCH PRN IV SEE LABEL COMMENTS; Start 11/30/16 at 09:15; Stop 11/30/16 at 15:00; Status DC Potassium Chloride (KCl) 20 meq UNSCH PRN PO SEE LABEL COMMENTS; Start at 09:15; Stop 11/30/16 at 15:00; Status DC Potassium Chloride (KCl) 40 meq UNSCH PRN PO SEE LABEL COMMENTS; Start at 09:15; Stop 11/30/16 at 15:00; Status DC Magnesium Sulfate 2 gm/Sodium Chloride 104 ml @ 100 mls/hr UNSCH PRN IV SEE LABEL COMMENTS; Start 11/30/16 at 09:15; Stop 11/30/16 at 15:00; Status DC Magnesium Sulfate 2 gm/Sodium Chloride 104 ml @ 50 mls/hr UNSCH PRN IV SEE LABEL COMMENTS; Start 11/30/16 at 09:15; Stop 11/30/16 at 15:00; Status DC Calcium Chloride 1 gm/Sodium Chloride 110 ml @ 100 mls/hr UNSCH PRN IV SEE LABEL COMMENTS; Start 11/30/16 at 09:15; Stop 11/30/16 at 15:00; Status DC Calcium Chloride (Calcium Chloride Inj) 0.5 gm UNSCH PRN IV SEE LABEL COMMENTS ; Start 11/30/16 at 09:15; Stop 11/30/16 at 15:00; Status DC Dextrose (D50w (Vial) Inj) 50 ml UNSCH PRN IV PUSH HYPOGLYCEMIA-SEE COMMENTS; Start 11/30/16 at 09:15 Albuterol/ Ipratropium (Duoneb Neb) 1 ampule Q6HR NEB NEB ; Start 11/30/16 at 10:00; Stop 11/30/16 at 15:00; Status DC Albuterol/ Ipratropium (Duoneb Neb) 1 ampule Q2HR NEB PRN NEB WHEEZING; Start 11/30/16 at 09:15; Stop 11/30/16 at 15:00; Status DC Racepinephrine (Racepinephrine 2.25% Neb) 0.5 ml UNSCH X1 PRN NEB STRIDOR; Start 11/30/16 at 09:15; Stop 11/30/16 at 15:00; Status DC Sodium Chloride (NS Flush) 2 ml BID IV FLUSH Last administered on 12/01/16 21: 08; Start 11/30/16 at 21:00 Sodium Chloride (NS Flush) 2 ml UNSCH PRN IV FLUSH FLUSH AFTER USING IV ACCESS ; Start 11/30/16 at 15:00 Chlorhexidine Gluconate (Hibiclens 4% Top Soln) 1 applic CHIEF D[employer]ITAL MEDIA OFFICER TOPICAL ; Start 11/30/16 at 16:00; Stop 12/07/16 at 15:59 Insulin Human Regular 100 units/ Sodium Chloride 101 ml @ 0 mls/hr Q0M IV ; Start 11/30/16 at 14:59; Stop 11/30/16 at 16:13; Status DC Insulin Human Regular 100 units/ Sodium Chloride 100 ml @ 3 mls/hr TITRATE PRN IV For Glucose Control; Start 11/30/16 at 16:15; Stop 12/07/16 at 16:14 Menthol ([place] [employer]) 1 lozenge Q2H PRN BUCCAL SORE THROAT Last administered on 06:31; Start 12/01/16 at 16:30 Urinary Catheter: No A/P Problem List: (1) Chest pain ICD Code: R07.9 - Chest pain, unspecified Status: Acute (2) NSTEMI (non-ST elevated myocardial infarction) ICD Code: I21.4 - Non-ST elevation (NSTEMI) myocardial infarction Status: Acute (3) Severe aortic stenosis ICD Code: I35.0 - Nonrheumatic aortic (valve) stenosis (4) Hyperlipemia ICD Code: E78.5 - Hyperlipidemia, unspecified (5) Hypertension ICD Code: I10 - Essential (primary) hypertension (6) Chest pain ICD Code: R07.9 - Chest pain, unspecified Assessment and Plan Patient is a 76-year-old male with primary medical history of hyperlipidemia who came into the hospital for complaints of chest pain. Patient states that he woke up sweating and was feeling "yucky." States he feels like he has "flu type of feeling." States when he got up he got dizzy. States he has a little bit of chest pain midsternal area, does not radiate anywhere, it is unrelieved by rest, not aggravated by any movement. Patient was then taken to have cardiac catheterization done by Dr. Bueno. Moderate LAD disease found. However, severe was found. CV surgery consulted. - NSTEMI - Hyperlipidemia - Troponins 0.22, 0.21. s/p Cath --> moderate LAD disease. Medical management. - Continue Aspirin 325mg, Lipitor 10mg, Carvedilol 3.125mg BID. - If okay with Cardiology, Aspirin can be reduced to 81mg Qday - Increase Lipitor from 10mg QHS to 40mg QHS. - Severe aortic stenosis - CV surgery following. Probable Mini AVR replacement OFF SCHEDULE TODAY- MAYBE TOMORROW OR NEXT DAY - CARDIAC DIET Full code. SCDs. SURGERY ON HOLD SEVERE AORTIC STENOSIS FOR SURGERY LATER THIS WEEK RIGHT NECK HEMATOMA DUE TO CAROTID ARTERY- IMPROVED URINARY URGENCY/PAIN ADD PYRIDIUM DW RN AND PT PT AND OT EVAL AND TREAT AM LABS Problem Qualifiers (1) Chest pain: Qualified Codes: R07.9 - Chest pain, unspecified Barrie Morris DO Dec 02, 2016 08:47
[2016-12-02] MEDS: SODIUM CHLORIDE 0.9% FLUSH 10 ML FLUSH IV FLUSH SCH ×2 (09:37→21:15)
[2016-12-02] MEDS: CARVEDILOL 3.125 MG TAB PO SCH ×2 (09:37→21:15)
[2016-12-02] MEDS: ASPIRIN 81 MG CHEW TAB PO SCH (09:37)
[2016-12-02] MEDS ORDERED: PHENAZOPYRIDINE HCL 100 MG TAB PO PRN (10:00)
--- NOTE | 2016-12-02 11:39 | PD.CAR.PN ---
CVT Progress Note Subjective/Hospital Course: 76/ male presented to ED with chest pain , elevated troponins , underwent cardiac cath which revealed 30-50% stenosis in mid LAD, ECHO showed mean aortic gradient of 50mmhg / severe aortic stenosis / SRS mortality 1.84 pt has been evaluated for Minimally invasive Aortic valve replacement on Thursday 11/30 PMH: HLP, heart murmur CT chest without contrast pending carotid US < 50% stenosis bilaterally EF 50% 11/30 pt went into OR, when undergoing CVC line placement , there was difficulty with hematoma right neck area OR aborted, pt sent to CVICU for Observation / Pt A&0 x 4 , moves all extremities small hematoma right neck area 12/01 pt up in chair, ambulating well per PT right neck with mild swelling, no hematoma scheduled for surgery on saturday 12/02 no new complaints for surgery on wednesday Objective: GENERAL: SKIN: Warm and dry. HEAD: Normocephalic. EYES: No scleral icterus. No injection or drainage. NECK: Supple, trachea midline. No JVD or lymphadenopathy. CARDIOVASCULAR: Regular rate and rhythm 3/6 sm , gallops, or rubs. RESPIRATORY: Breath sounds equal bilaterally. No accessory muscle use. GASTROINTESTINAL: Abdomen soft, non-tender, nondistended. MUSCULOSKELETAL: No cyanosis, or edema. BACK: Nontender without obvious deformity. No CVA tenderness. Vital Signs Date Time Temp Pulse Resp B/P (MAP) Pulse Ox O2 Delivery O2 Flow Rate FiO2 12/02/16 08:11 97.9 64 18 140/81 (100) 96 12/02/16 05:00 57 12/02/16 04:47 98.2 56 16 135/79 (97) 98 12/02/16 04:45 98.6 59 18 135/79 (97) 97 12/02/16 04:00 54 12/02/16 03:00 55 12/02/16 02:00 67 12/02/16 01:00 72 12/02/16 00:00 74 12/01/16 23:51 98.0 75 18 107/63 (78) 98 12/01/16 23:00 59 12/01/16 22:00 59 12/01/16 21:00 62 12/01/16 20:00 71 12/01/16 20:00 98.7 68 18 115/73 (87) 98 12/01/16 19:00 74 12/01/16 18:00 72 12/01/16 17:08 76 12/01/16 16:00 70 12/01/16 15:08 98.9 70 20 107/65 (79) 98 12/01/16 15:00 70 12/01/16 14:00 68 12/01/16 13:00 72 12/01/16 12:00 70 Labs: Laboratory Tests Test 12/02/16 05:01 White Blood Count 8.0 TH/MM3 (4.0-11.0) Red Blood Count 4.43 MIL/MM3 (4.50-5.90) Hemoglobin 12.6 GM/DL (13.0-17.0) Hematocrit 38.6 % (39.0-51.0) Mean Corpuscular Volume 87.1 FL (80.0-100.0) Mean Corpuscular Hemoglobin 28.4 PG (27.0-34.0) Mean Corpuscular Hemoglobin Concent 32.6 % (32.0-36.0) Red Cell Distribution Width 13.7 % (11.6-17.2) Platelet Count 178 TH/MM3 (150-450) Mean Platelet Volume 9.8 FL (7.0-11.0) Neutrophils (%) (Auto) 69.8 % (16.0-70.0) Lymphocytes (%) (Auto) 15.5 % (9.0-44.0) Monocytes (%) (Auto) 12.0 % (0.0-8.0) Eosinophils (%) (Auto) 2.4 % (0.0-4.0) Basophils (%) (Auto) 0.3 % (0.0-2.0) Neutrophils # (Auto) 5.6 TH/MM3 (1.8-7.7) Lymphocytes # (Auto) 1.2 TH/MM3 (1.0-4.8) Monocytes # (Auto) 1.0 TH/MM3 (0-0.9) Eosinophils # (Auto) 0.2 TH/MM3 (0-0.4) Basophils # (Auto) 0.0 TH/MM3 (0-0.2) CBC Comment DIFF FINAL Differential Comment Blood Urea Nitrogen 20 MG/DL (7-18) Creatinine 0.97 MG/DL (0.60-1.30) Random Glucose 95 MG/DL (74-106) Total Protein 7.0 GM/DL (6.4-8.2) Albumin 3.2 GM/DL (3.4-5.0) Calcium Level 8.5 MG/DL (8.5-10.1) Phosphorus Level 3.2 MG/DL (2.5-4.9) Magnesium Level 2.2 MG/DL (1.5-2.5) Alkaline Phosphatase 61 U/L (45-117) Aspartate Amino Transf (AST/SGOT) 10 U/L (15-37) Alanine Aminotransferase (ALT/SGPT) 19 U/L (12-78) Total Bilirubin 0.5 MG/DL (0.2-1.0) Sodium Level 141 MEQ/L (136-145) Potassium Level 4.3 MEQ/L (3.5-5.1) Chloride Level 104 MEQ/L (98-107) Carbon Dioxide Level 30.2 MEQ/L (21.0-32.0) Anion Gap 7 MEQ/L (5-15) Estimat Glomerular Filtration Rate 75 ML/MIN (>89) Result Diagram: 12/02/16 0501 12/02/16 0501 Telemetry: NSr (1) Chest pain Plan: ASA, statin , BB (2) Severe aortic stenosis Plan: OR cancelled yesterday , pt developed hematoma while having right IJ CVC line placed NECK US : no pseudoaneurysm, thrombosis for mini AVR on wednesday (3) Hypertension Plan: BP control (4) Hyperlipemia EVELIO DUMONT Dec 02, 2016 11:39
[2016-12-02] MEDS: ATORVASTATIN 10 MG TAB PO SCH (21:15)
[2016-12-03] VITALS (24 sets, daily range): BP systolic 110–145; BP diastolic 64–84; PULSE 57–78; RESP 16–19; TEMP 97.9–98.9; O2SAT 96–98
[2016-12-03] MEDS: PANTOPRAZOLE SOD 40 MG DELAYED RELEASE TAB PO SCH (05:47)
[2016-12-03 06:46] LABS: PROTHROMBIN TIME - PATIENT 11.4 SEC (9.8-11.6)
[2016-12-03 06:53] LABS: ANION GAP 9 MEQ/L (5-15); AST (GOT) 13 U/L (15-37); BICARBONATE 27.4 MEQ/L (21.0-32.0); BLOOD UREA NITROGEN 17 MG/DL (7-18); CHLORIDE 105 MEQ/L (98-107); GLOMERULAR FILTRATION RATE 86 ML/MIN (>89); POTASSIUM 4.4 MEQ/L (3.5-5.1); SODIUM (NA) 141 MEQ/L (136-145)
[2016-12-03 06:55] LABS: ALT (GPT) 21 U/L (12-78)
[2016-12-03 06:56] LABS: ALKALINE PHOSPHATASE 59 U/L (45-117); TOTAL BILIRUBIN ADULT 0.5 MG/DL (0.2-1.0)
[2016-12-03 06:58] LABS: AUTOMATED NEUTROPHIL # 5.3 TH/MM3 (1.8-7.7); BASOPHIL % 0.4 % (0.0-2.0); EOSINOPHIL # 0.2 TH/MM3 (0-0.4); EOSINOPHIL % 2.8 % (0.0-4.0); HEMATOCRIT 37.6 % (39.0-51.0); HEMO FLAGS DIFF FINAL; LYMPH % 16.6 % (9.0-44.0); LYMPHOCYTE # 1.3 TH/MM3 (1.0-4.8); MEAN CELL VOLUME 86.1 FL (80.0-100.0); MEAN CORPUSCULAR HEMOGLOBIN 29.1 PG (27.0-34.0); MEAN CORPUSCULAR HGB CONC 33.7 % (32.0-36.0); MONO % 10.9 % (0.0-8.0); NEUT % 69.3 % (16.0-70.0); PLATELET COUNT 166 TH/MM3 (150-450); RED BLOOD COUNT 4.36 MIL/MM3 (4.50-5.90); RED CELL DISTRIBUTION WIDTH 13.9 % (11.6-17.2); WHITE BLOOD COUNT 7.7 TH/MM3 (4.0-11.0)
--- NOTE | 2016-12-03 08:36 | HHI.PR ---
Subjective Remarks Reviewed a.m. labs today, stable BMP and CBC. Pt denies any cp, tolerating meals well Objective Vital Signs Date Time Temp Pulse Resp B/P (MAP) Pulse Ox O2 Delivery O2 Flow Rate FiO2 12/03/16 06:00 57 12/03/16 05:00 59 12/03/16 04:00 97.9 62 18 110/64 (79) 97 12/03/16 04:00 62 12/03/16 03:00 60 12/03/16 02:00 60 12/03/16 01:00 63 12/03/16 00:29 98.0 68 18 132/79 (96) 97 12/03/16 00:00 67 12/02/16 23:00 64 12/02/16 22:00 67 12/02/16 21:00 67 12/02/16 20:00 97.8 63 18 126/79 (95) 98 12/02/16 20:00 69 12/02/16 19:00 65 12/02/16 18:00 60 12/02/16 17:00 68 12/02/16 16:00 63 12/02/16 15:26 98.3 70 20 108/57 (74) 97 12/02/16 15:00 68 12/02/16 14:00 63 12/02/16 13:00 62 12/02/16 12:00 72 12/02/16 11:00 97.8 67 20 125/80 (95) 97 12/02/16 11:00 74 12/02/16 10:00 72 12/02/16 09:00 74 I/O 12/02/16 12/02/16 12/02/16 12/03/16 12/03/16 12/03/16 07:00 15:00 23:00 07:00 15:00 23:00 Intake Total 240 ml 820 ml 240 ml Output Total 425 ml 1000 ml 1150 ml Balance -185 ml -180 ml -910 ml Intake Oral 240 ml 820 ml 240 ml Output Urine Total 425 ml 1000 ml 1150 ml Result Diagram: 12/03/16 0510 12/03/16 0510 Objective Remarks GENERAL: No acute distress CARDIOVASCULAR: Regular rate and rhythm without murmurs, gallops, or rubs. Regular right radial pulse, no lower extremity edema. No sign of ascites in abdomen suggestive of fluid overload, no JVD RESPIRATORY: Breath sounds equal and clear bilaterally. Unlabored breathing A/P Problem List: (1) Severe aortic stenosis ICD Code: I35.0 - Nonrheumatic aortic (valve) stenosis (2) Chest pain ICD Code: R07.9 - Chest pain, unspecified (3) NSTEMI (non-ST elevated myocardial infarction) ICD Code: I21.4 - Non-ST elevation (NSTEMI) myocardial infarction Status: Acute (4) Hypertension ICD Code: I10 - Essential (primary) hypertension Assessment and Plan Patient is a 76-year-old male with primary medical history of hyperlipidemia who came into the hospital for complaints of chest pain. Patient states that he woke up sweating and was feeling "yucky." States he feels like he has "flu type of feeling." States when he got up he got dizzy. States he has a little bit of chest pain midsternal area, does not radiate anywhere, it is unrelieved by rest, not aggravated by any movement. Patient was then taken to have cardiac catheterization done by Dr. Bueno. Moderate LAD disease found. However, severe was found. CV surgery consulted. - NSTEMI - Hyperlipidemia - Troponins 0.22, 0.21. s/p Cath --> moderate LAD disease. Medical management (no stenting done) due to difficulty secondary to severe aortic stenosis. - Continue Carvedilol 3.125mg BID. - Aspirin - Lipitor 40mg QHS. - Severe aortic stenosis - CV surgery following. Probable Mini AVR replacement - ON schedule for gurdeep - CARDIAC DIET Full code. SCDs. SURGERY ON HOLD SEVERE AORTIC STENOSIS FOR SURGERY LATER THIS WEEK DISCUSSED WITH NURSING THAT PATIENT IS ON SCHEDULE FOR TOMORROW, NO ACUTE COMPLAINTS REPORTED OVERNIGHT Mervin Arevalo MD Dec 03, 2016 08:36
[2016-12-03] MEDS: CARVEDILOL 3.125 MG TAB PO SCH ×2 (10:27→21:40)
[2016-12-03] MEDS: ASPIRIN 81 MG CHEW TAB PO SCH (10:27)
[2016-12-03] MEDS: SODIUM CHLORIDE 0.9% FLUSH 10 ML FLUSH IV FLUSH SCH ×2 (10:27→21:40)
[2016-12-03] MEDS: ATORVASTATIN 10 MG TAB PO SCH (21:40)
[2016-12-04] VITALS (21 sets, daily range): BP systolic 100–131; BP diastolic 2–84; PULSE 56–68; RESP 12–19; TEMP 96.9–98.8; O2SAT 95–100
[2016-12-04] MEDS ORDERED: AMINOCAPROIC ACID INJ 250 MG/ML 20 ML VIAL IV ONE ×2 (05:00→12:00)
[2016-12-04] MEDS ORDERED: PHENYLEPHRINE HCL 10 MG/ML VIAL IV ONE (05:00)
[2016-12-04] MEDS ORDERED: PROTAMINE SULFATE 250 MG/25 ML VIAL IV ONE (05:00)
[2016-12-04] MEDS ORDERED: HEPARIN SODIUM - SQ 10,000 UNITS/ML VIAL SQ ONE (05:00)
[2016-12-04] MEDS ORDERED: MAGNESIUM SULFATE 1000 MG/2 ML VIAL (PED) IV ONE (05:00)
[2016-12-04] MEDS ORDERED: VECURONIUM BROMIDE 10 MG VIAL IV ONE (05:00)
[2016-12-04] MEDS ORDERED: ARTIFICIAL TEARS OPTH OINT 3.5 APPLIC/3.5 GM TUBO ONE (05:00)
[2016-12-04] MEDS: CARVEDILOL 3.125 MG TAB PO SCH ×2 (05:58→21:00)
[2016-12-04] MEDS: PANTOPRAZOLE SOD 40 MG DELAYED RELEASE TAB PO SCH (06:00)
[2016-12-04] MEDS ORDERED: LACTATED RINGER'S 1000 ML IV PRN (06:15)
[2016-12-04] MEDS ORDERED: SODIUM CHLORID 0.9% 500 ML IV PRN (06:15)
[2016-12-04] MEDS ORDERED: POVIDONE IODINE 5% (ANTISEPSIS KIT) 4 APPLICATIONS EACH NARE PRN (06:15)
[2016-12-04] MEDS ORDERED: INSULIN HUMAN REGULAR 1,000 UNITS/10 ML VIAL SQ PRN (06:15)
[2016-12-04] MEDS ORDERED: METOPROLOL TARTRATE 25 MG TAB PO PRN (06:15)
[2016-12-04] MEDS ORDERED: CHLORHEXIDINE GLUCONATE 2 % 1 PACK (2 CLOTHS) TOPICAL PRN (06:15)
[2016-12-04] MEDS ORDERED: CUSTODIOL HTK IRR SOLN 2,000 ML ONE (06:58)
[2016-12-04] MEDS ORDERED: MANNITOL INJ 100 ML ONE (06:59)
[2016-12-04] MEDS ORDERED: ALBUMIN HUMAN 25% 12.5 GM/50 ML BAGP IV ONE (06:59)
[2016-12-04] MEDS ORDERED: HEPARIN SODIUM - IV 10,000 UNITS/10 ML VIAL ONE (07:00)
[2016-12-04] MEDS ORDERED: HEPARIN SODIUM - SQ 10,000 UNITS/ML VIAL ONE (07:22)
[2016-12-04] MEDS ORDERED: ceFAZolin 2 GM PREMIX 50 ML ONE ×2 (07:23→12:11)
[2016-12-04] MEDS ORDERED: CEFAZOLIN INJ 500 MG in SODIUM CHLORIDE 0.9% IRR BTL 500 ML IRRIGATION SCH (07:30)
[2016-12-04] MEDS ORDERED: ceFAZolin 2 GM PREMIX 50 ML IV SCH (07:30)
[2016-12-04] MEDS ORDERED: BUPIVACAINE LIPOSO PF 1.3% INJ 20 ML, DEXAMETHASONE INJ 4 MG, MORPHINE INJ 10 MG in SOD... ONE (08:00)
[2016-12-04] MEDS ORDERED: POTASSIUM CHLORIDE 20 MEQ/10 ML VIAL ONE (09:17)
[2016-12-04] MEDS ORDERED: DEXMEDETOMIDINE HCL 200 MCG/2 ML VIAL ONE (10:27)
[2016-12-04] MEDS ORDERED: SODIUM CHLORIDE 0.9% INJ 50 ML ONE (10:28)
[2016-12-04] MEDS ORDERED: CUSTODIOL HTK IRR SOLN 1,000 ML ONE (11:20)
[2016-12-04] MEDS ORDERED: LACTATED RINGER'S 1000 ML INJ 1,000 ML IV ONE (12:00)
[2016-12-04] MEDS ORDERED: BUPIVACAINE LIPOSOME PF 1.3% 20 ML VIAL INFIL ONE (12:00)
[2016-12-04] MEDS ORDERED: NORMOSOL R INJ 1,000 ML IV ONE (12:00)
[2016-12-04] MEDS ORDERED: SODIUM CHLOR 0.9% 1000 ML INJ 1,000 ML IV ONE (12:00)
[2016-12-04] MEDS ORDERED: CARDIOPLEGIC IRR ONE (12:00)
[2016-12-04] MEDS ORDERED: PROPOFOL 200 MG/20 ML AMP IV ONE (12:00)
[2016-12-04] MEDS ORDERED: DOBUTamine PREMIX DRIP 250 ML IV SCH (13:54)
[2016-12-04] MEDS ORDERED: ACETAMINOPHEN 325 MG TAB PO PRN (14:00)
[2016-12-04] MEDS ORDERED: ONDANSETRON HCL 4 MG/2 ML VIAL IV PUSH PRN (14:00)
[2016-12-04] MEDS ORDERED: hydrALAZINE HCL 20 MG/ML VIAL IV PRN (14:00)
[2016-12-04] MEDS ORDERED: [UNRECOGNIZED DRUG - OTHER] IV FLUSH ONE ×4 (14:00)
[2016-12-04] MEDS ORDERED: Post-op Orders (for Pharmacy) MISC OTHER ONE (14:00)
[2016-12-04] MEDS ORDERED: CALCIUM CHLORIDE INJ 1 GM in SODIUM CHLORIDE 0.9% INJ 100 ML IV PRN (14:00)
[2016-12-04] MEDS ORDERED: MORPHINE SULFATE 4 MG/ML INJ IV PRN (14:00)
[2016-12-04] MEDS ORDERED: METOPROLOL TARTRATE 5 MG/5 ML VIAL IV PUSH PRN (14:00)
[2016-12-04] MEDS ORDERED: INSULIN REGULAR (IV INFUSION) 100 UNITS in SODIUM CHLORIDE 0.9% INJ 99 ML IV SCH (14:00)
[2016-12-04] MEDS ORDERED: CALCIUM CHLORIDE 10% 1 GRAM/10 ML VIAL IV PRN (14:00)
[2016-12-04] MEDS ORDERED: SODIUM CHLORIDE 0.9% FLUSH 10 ML FLUSH IV FLUSH PRN (14:00)
[2016-12-04] MEDS ORDERED: MEPERIDINE HCL 25 MG/ML VIAL IV PRN (14:00)
[2016-12-04] MEDS ORDERED: DEXMEDETOMIDINE INJ 200 MCG in SODIUM CHLORIDE 0.9% INJ 50 ML IV PRN (14:00)
[2016-12-04] MEDS ORDERED: POTASSIUM CHLOR 20 MEQ PREMIX 100 ML IV PRN ×3 (14:00)
[2016-12-04] MEDS ORDERED: DOPamine INJ PREMIX 500 ML IV PRN (14:00)
[2016-12-04] MEDS ORDERED: SODIUM CHLORIDE 0.9% IV FLUSH ONE ×4 (14:00)
[2016-12-04] MEDS ORDERED: NITROGLYCERIN-D5W 50 MG/250 ML 250 ML IV PRN (14:00)
[2016-12-04] MEDS ORDERED: RESP: RACEPINEPHRINE 2.25% 0.5 ML NEB NEB PRN (14:00)
[2016-12-04] MEDS ORDERED: KETOROLAC TROMETHAMINE 30 MG/ML (IVP) VIAL IV PUSH PRN (14:00)
[2016-12-04] MEDS ORDERED: DEXTROSE 50% IN WATER 50 ML VIAL(D50) IV PUSH PRN (14:00)
[2016-12-04] MEDS ORDERED: ACETAMINOPHEN 650 MG SUPP RECTAL PRN (14:00)
[2016-12-04] MEDS ORDERED: CLEVIDIPINE INJ 50 ML IV PRN (14:00)
[2016-12-04] MEDS ORDERED: RESP: ALBUTEROL 2.5 MG/IPRATROPIUM 0.5 MG NEB (PRN) NEB (14:00)
[2016-12-04] MEDS ORDERED: POTASSIUM CHLORIDE 20 MEQ CONTROLLED RELEASE TAB PO PRN ×2 (14:00)
[2016-12-04] MEDS ORDERED: MAGNESIUM SULFATE INJ 2 GM in SODIUM CHLORIDE 0.9% INJ 100 ML IV PRN ×4 (14:00)
[2016-12-04] MEDS ORDERED: BUPIVACAINE LIPOSO 1.3% IV FLUSH ONE ×4 (14:00)
[2016-12-04] MEDS ORDERED: PHENYLEPHRINE INJ 40 MG in DEXTROSE 5% IN WATE 500 ML INJ 496 ML IV PRN ×2 (14:00)
--- NOTE | 2016-12-04 14:12 | HHI.FF ---
Face to Face Verification Diagnosis: (1) S/P AVR (aortic valve replacement) (2) Hyperlipemia (3) Chest pain (4) Hypertension (5) Severe aortic stenosis Home Health Nursing Order: Signs/symptoms of disease process Medication education-adverse effect Wound care and dressing changes Nursing assessment with vital signs Instructions: Heart and Vascular Surgery patients *Special attention to sternal dressing Mandatory frequency Assess and evaluation, 4 days in a row The next week 3X week 2 times a week for 4 weeks 1 time a week for 5 weeks Schedule Heart and Vascular patients for full 60 day certification period Initial visit Review Open Heart Surgery Discharge Instructions (Sternal precautions, Activity, Elastic hose, Incision care, Driving, Incentive spirometry, Smoking, [place], Work and other) Need Betadine to paint incision Medication reconciliation Importance of follow up care/ check on appointments Make calendar record temperature daily When to call [facility] at Home nurse, review instructions, phone list Incentive Spirometry, demonstration Visit 1- Begin discharge instruction for patient family and/ or caregiver using teach back method- Signs and symptoms of infection Disease characteristics Medicines and side effects Foods and nutrition/ appetite Infection control/ hand washing/ hygiene Visit 2- Continue teaching Discharge instructions- include additional information on smoking cessation , sternal dressing (sternal vac) Visit 3- Continue teaching- Cough and deep breathing, incision monitoring. Choose my plate Visit 4- Continue teaching- Discuss limitations Discuss how they are feeling Discuss progress toward goals Remaining visits- continue teaching and monitoring Incentive spirometry Q1 hr x 10, while awake, also use acapella device hourly whole awake Sternal Breast Bone Precautions: NO pushing or pulling, ( pt must use sternal pillow to support chest with all activities and with coughing ( takes up to 3 months breast bone to heal ) Daily incision care: ok to shower daily, no tub bath. Wash all incisions with liquid dial soap, clean wash cloth to each site, rinse and pat dry. Observe for any signs of infection, such as drainage which is dark yellow, [place], green or foul smelling. Immediately report to the surgeon any drainage from the chest incision, or legs, and for any abnormal drainage from the chest tube sites. Notify surgeon if any temp >101.5 degrees F. When specialty dressing removed/ or if you do not have one, continue to shower daily as above, then rinse and pat incision dry and paint with betadine daily x 5 days. Allow steri strips to fall off if you have any. Avoid lotions, creams, salves, oils, etc. for the first month For Dr. Adames patients , please obtain CBC, BMP, PA & Lat CXR in 2 weeks, results to Dr. Adames ( prescription will be given) ( ) (Tele: [phone]) , Valve replacement pts will need 2decho in 2 weeks with results to Dr. Adames . Please obtain 2 d echo at your sports team manager office if possible F/U appointment: as per DC instructions: PCP in 2 weeks, CV surgeon 2 weeks, Spline Rolling Machine Job Setter 3-4 weeks For any questions regarding incisions/ dressing / meds / post op care or above Symptoms, Wednesday 8am-5pm Heart & Vascular Surgery Office ( Dr. Millan & Dr. Adames), After Hours / Nights (5pm -8am) Weekends and Holidays Please call [facility] Cardiac [facility] Unit ([facility]) Charge Nurse I have seen patient Jeremie Alvarez on 12/04/16. My clinical findings support the need for the requested home health care services because: Deconditioned w/ increased weakness I certify that my clinical findings support that this patient is homebound because: Post-op weakness Myesha Manzo Dec 04, 2016 14:12
[2016-12-04] MEDS ORDERED: MIDAZOLAM HCL 5 MG/5 ML VIAL ONE ×2 (14:38)
[2016-12-04] MEDS ORDERED: fentaNYL CITRATE 1000 MCG/20 ML VIAL ONE (14:38)
[2016-12-04] MEDS: ALBUMIN HUMAN 5% 12.5 GM/250 ML BOTTLE IV PRN ×2 (15:30→19:49)
--- NOTE | 2016-12-04 15:41 | PD.OP ---
cc: Mera Bueno MD; Hesham Florez MD; Cornel Millan MD Operative Report Date of Surgery: Dec 04, 2016 Preoperative Diagnosis: Postoperative Diagnosis: Procedure: 1. Minimally Invasive AVR with a 25 Mosaic Cinch II Tissue Valve 2. Ultrasound Guided Left Femoral Arterial and Venous Percutaneous Cannulation for CPB 3. Intercostal Nerve Block 4. Perclose Closure of Femoral Artery Surgeon: Cornel Millan Manufacturing Engineer Supervisor(s): Piper Moy Operation and Findings: PREOPERATIVE DIAGNOSIS: 1. Severe Aortic Valve Stenosis 2. NSTEMI POSTOPERATIVE DIAGNOSIS: Same PROCEDURE: 1. Minimally Invasive AVR with a 25 Mosaic Cinch II Tissue Valve 2. Ultrasound Guided Left Femoral Arterial and Venous Percutaneous Cannulation for CPB 3. Intercostal Nerve Block 4. Perclose Closure of Femoral Artery ANESTHESIA: LANCE Ledesma MD SENIOR GAME ADVISOR: MD Tawanda Stephens BUSINESS MANAGER INDICATIONS: This is a 81 yo patient with severe Aortic stenosis and NSTEMI, presenting for surgical correction of their underlying cardiac pathology. PROCEDURE: Standard monitoring lines and Hector catheter were placed. General anesthesia was induced. The patient was prepped and draped in a sterile fashion. The femoral artery and vein were identified with ultrasound guidance. The patient was heparinized for cardiopulmonary bypass. The left femoral artery was cannulated with a 17 Fr [employer] arterial cannula. The left femoral vein was cannulated with a 21 Fr [employer] cannula under [place] guidance. A 6 cm right anterior thoracotomy was performed and the 3rd rib was shingled. The right internal mammary artery and vein were ligated and divided. An Segun retractor was placed followed by a small chest retractor. The pericardium was opened and a pericardial sling was created using interrupted 0 silk sutures. A small 1 cm incision was made at the 6th intercostal space and an LV vent and pericardial suction were placed through this access port. The LV vent was placed through the Right Superior Pulmonary Vein. The aorta was dissected posteriorly for crossclamp placement. The patient was placed on cardiopulmonary bypass. An aortic cross-clamp was applied and the heart was arrested using cold blood cardioplegia delivered through a 14F catheter. Antegrade Custodiol cardioplegia was employed. 1 L of antegrade Custodiol cardioplegia was infused directly into the aortic root.The aorta was opened above the sinotubular ridge and the aortic valve was exposed. Additional 600mls (Left Main) and 500 mls ( RCA) Long Term plegia was given directly into the coronary ostia. Satisfactory diastolic arrest of the heart was obtained. On opening the aorta, the valve appeared very heavily calcified with retracted cusps. The valve was resected as well as all annular calcification, sized for a 25 mm Mosaic tissue valve which was placed with 2-0 pledgeted Tycron valve sutures. The valve seated well. The aorta was closed with two layers of running 4-0 Prolene suture, the first in a horizontal mattress fashion and the second layer of simple running. The patient systemically rewarmed. The heart was vigorously deaired with a clamp on. Ventricular pacing wire was placed. The clamp was removed, deairing continued. Upon achieving normothermia and intrinsic cardiac activity, the patient was weaned from cardiopulmonary bypass. Strict hemostasis was assured and Protamine administered. Decannulation was carried out without incident and the femoral arteriotomy was closed with 2 Perclose devices. There was no adverse reaction. Intraoperative [place] following the procedure showed a well-seated aortic valve with no perivalvular leak and preserved ventricular function. A [address] were positioned in the pericardium via the right pleural space and secured with 2-0 silk sutures. The 3rd rib was reapproximated to the sternum using a [id number] 0-Ethibond stitch and to the adjacent rib with a 0 Vicryl suture. Intercostal nerve block was preformed at the level of the incision as well as 2 rib spaces above and below using Exparel solution. The fascia and pectoralis were closed with 0 Vicryl. The subcutaneous tissue was closed using a running 3-0 Monocryl suture. The skin was closed with 4-0 Monocryl. Triphasic pulsatile doppler flow was confirmed in both pedal distributions. Sterile dressings were placed. At the end of the operation, all sponge, instruments, and needle counts were correct. The patient was transferred to the CVICU in stable condition. Cornel Millan MD Dec 04, 2016 15:41
--- NOTE | 2016-12-04 15:57 | RADRPT ---
EXAM DATE/TIME: 12/04/2016 15:01 [facility] COMPARISON: CHEST SINGLE AP, December 01, 2016, 3:58. INDICATIONS : Post CABG. MEDICAL HISTORY : Hypercholesterolemia. SURGICAL HISTORY : None. ENCOUNTER: Initial ACUITY: 1 day PAIN SCORE: Non-responsive. LOCATION: Bilateral chest FINDINGS: Support apparatus in good position. Nasogastric tube is not across the GE junction. Lungs are clear . Heart is not enlarged. Is unremarkable. CONCLUSION: Satisfactory postoperative chest, nasogastric tube is not across the GE junction. Barrie Handy MD FACR on December 04, 2016 at 15:55 Board Certified Radiologist. This report was verified electronically.
[2016-12-04] MEDS: ACETAMINOPHEN 1000 MG/100 ML VIAL IV SCH ×2 (16:21→22:24)
[2016-12-04] MEDS: LACTATED RINGER'S 1000 ML INJ 500 ML IV PRN ×3 (16:24→20:00)
[2016-12-04] MEDS: RESP: ALBUTEROL 2.5 MG/IPRATROPIUM 0.5 MG NEB (SCH) NEB ×2 (16:24→21:29)
[2016-12-04] MEDS: ceFAZolin 2 GM PREMIX 50 ML IV SCH (20:00)
--- NOTE | 2016-12-04 20:02 | HHI.PR ---
Subjective Remarks Follow-up on chest pain. Patient currently postop from Minimally Invasive AVR. Nursing reports that patient is requiring low rate of Mic-Synephrine to keep map above 65 Objective Vital Signs Date Time Temp Pulse Resp B/P (MAP) Pulse Ox O2 Delivery O2 Flow Rate FiO2 12/04/16 18:00 60 12/04/16 18:00 97.0 60 15 110/60 (77) 96 121/84 (96) 12/04/16 17:46 97 Nasal Cannula 3.00 12/04/16 17:45 98 Nasal Cannula 3 12/04/16 17:00 96.9 56 16 101/66 (78) 98 107/57 (74) 12/04/16 17:00 12 12/04/16 16:15 98 40 12/04/16 15:00 50 12/04/16 14:30 97.4 12/04/16 14:25 99 50 12/04/16 14:20 97.8 68 12 106/66 (79) 100 108/60 (76) 12/04/16 14:20 68 12/04/16 06:00 60 12/04/16 05:00 64 12/04/16 04:00 60 12/04/16 03:00 56 12/04/16 03:00 97.9 59 19 131/75 (93) 95 12/04/16 02:00 62 12/04/16 01:00 64 12/04/16 00:00 66 12/03/16 23:00 97.9 69 19 145/80 (101) 98 12/03/16 23:00 70 12/03/16 22:00 64 12/03/16 21:00 66 12/03/16 20:00 98.0 66 19 123/81 (95) 97 12/03/16 20:00 76 I/O 12/03/16 12/03/16 12/03/16 12/04/16 12/04/16 12/04/16 07:00 15:00 23:00 07:00 15:00 23:00 Intake Total 240 ml 650 ml 480 ml 3000 ml 2065 ml Output Total 1150 ml 650 ml 1250 ml 1340 ml Balance -910 ml 650 ml -170 ml 1750 ml 725 ml Intake Oral 240 ml 650 ml 480 ml 0 ml IV Total 2065 ml Autotransfusion 900 ml Other 2100 ml Output Urine Total 1150 ml 650 ml 1250 ml 1110 ml Chest Tube Drainage Total 230 ml # Bowel Movements 0 Result Diagram: 12/03/1610 12/03/1610 Objective Remarks GENERAL: Sedated Respiratory: Currently on ventilator Cardiovascular: No JVD, minimal lower extremity edema A/P Problem List: (1) Severe aortic stenosis ICD Code: I35.0 - Nonrheumatic aortic (valve) stenosis (2) Chest pain ICD Code: R07.9 - Chest pain, unspecified (3) NSTEMI (non-ST elevated myocardial infarction) ICD Code: I21.4 - Non-ST elevation (NSTEMI) myocardial infarction Status: Acute (4) Hypertension ICD Code: I10 - Essential (primary) hypertension Assessment and Plan Patient is a 76-year-old male with primary medical history of hyperlipidemia who came into the hospital for complaints of chest pain. Patient states that he woke up sweating and was feeling "yucky." States he feels like he has "flu type of feeling." States when he got up he got dizzy. States he has a little bit of chest pain midsternal area, does not radiate anywhere, it is unrelieved by rest, not aggravated by any movement. Patient was then taken to have cardiac catheterization done by Dr. Bueno. Moderate LAD disease found. However, severe was found. CV surgery consulted. - NSTEMI - Troponins 0.22, 0.21. s/p Cath --> moderate LAD disease. Medical management (no stenting done) due to difficulty secondary to severe aortic stenosis. - BBs on hold 2/2 hypotension - Aspirin, plavix - Lipitor 40mg QHS. - Severe aortic stenosis -Status post Mini AVR replacement, anticipate extubation today. BGs stable today on insulin drip. AM CBC for being post op. Hypotension - Likely from sedation mild cardiogenic shock, continue Mic-Synephrine, on IVFs. AM bmp Full code. SCDs Mervin Arevalo MD Dec 04, 2016 20:02
[2016-12-04] MEDS: ATORVASTATIN 10 MG TAB PO SCH (21:00)
[2016-12-04] MEDS: SODIUM CHLORIDE 0.9% FLUSH 10 ML FLUSH IV FLUSH SCH (21:00)
[2016-12-05] VITALS (9 sets, daily range): BP systolic 94–137; BP diastolic 53–86; PULSE 71–95; RESP 16–20; TEMP 97.8–98.7; O2SAT 96–98
[2016-12-05] MEDS: RESP: ALBUTEROL 2.5 MG/IPRATROPIUM 0.5 MG NEB (SCH) NEB ×4 (03:36→20:47)
[2016-12-05] MEDS: ceFAZolin 2 GM PREMIX 50 ML IV SCH ×3 (04:22→20:32)
[2016-12-05] MEDS: ACETAMINOPHEN 1000 MG/100 ML VIAL IV SCH ×2 (04:22→10:10)
[2016-12-05 05:02] LABS: AUTOMATED NEUTROPHIL # 9.9 TH/MM3 (1.8-7.7); HEMATOCRIT 31.9 % (39.0-51.0); HEMO FLAGS DIFF FINAL; LYMPH % 5.3 % (9.0-44.0); LYMPHOCYTE # 0.6 TH/MM3 (1.0-4.8); MEAN CELL VOLUME 86.8 FL (80.0-100.0); MEAN CORPUSCULAR HEMOGLOBIN 28.5 PG (27.0-34.0); MEAN CORPUSCULAR HGB CONC 32.8 % (32.0-36.0); MONO % 11.2 % (0.0-8.0); NEUT % 83.5 % (16.0-70.0); PLATELET COUNT 131 TH/MM3 (150-450); RED BLOOD COUNT 3.68 MIL/MM3 (4.50-5.90); RED CELL DISTRIBUTION WIDTH 13.7 % (11.6-17.2); WHITE BLOOD COUNT 11.8 TH/MM3 (4.0-11.0)
--- NOTE | 2016-12-05 05:12 | RADRPT ---
EXAM DATE/TIME: 12/05/2016 04:14 [facility] COMPARISON: CHEST SINGLE AP, December 04, 2016, 15:01. INDICATIONS : Post CABG MEDICAL HISTORY : Hypercholesterolemia. SURGICAL HISTORY : CABG. ENCOUNTER: Subsequent ACUITY: 2 days PAIN SCORE: 8/10 LOCATION: Bilateral chest FINDINGS: A single view of the chest demonstrates left central line in superior vena cava. Subsegmental basilar air space disease. No significant effusion. No pneumothorax. Interval extubation. CONCLUSION: 1. Left central line in superior vena cava. Subsegmental basilar airspace disease. Extubation. Ole Dee MD on December 05, 2016 at 5:10 Board Certified Radiologist. This report was verified electronically.
[2016-12-05 05:45] LABS: BICARBONATE 26.8 MEQ/L (21.0-32.0); MAGNESIUM 2.1 MG/DL (1.5-2.5); POTASSIUM 4.3 MEQ/L (3.5-5.1)
[2016-12-05] MEDS: PANTOPRAZOLE SOD 40 MG DELAYED RELEASE TAB PO SCH (06:23)
[2016-12-05] MEDS: AMIODARONE 200 MG TAB PO SCH ×2 (08:21→20:33)
[2016-12-05] MEDS: CLOPIDOGREL 75 MG TAB PO SCH (08:22)
[2016-12-05] MEDS: ASPIRIN 81 MG CHEW TAB PO SCH (08:22)
[2016-12-05] MEDS: SODIUM CHLORIDE 0.9% FLUSH 10 ML FLUSH IV FLUSH SCH ×2 (08:23→21:00)
[2016-12-05] MEDS: CARVEDILOL 3.125 MG TAB PO SCH ×2 (09:00→20:33)
--- NOTE | 2016-12-05 09:28 | PD.CAR.PN ---
CVT Progress Note CVT: POD #: 1 Subjective/Hospital Course: 76/ male presented to ED with chest pain , elevated troponins , underwent cardiac cath which revealed 30-50% stenosis in mid LAD, ECHO showed mean aortic gradient of 50mmhg / severe aortic stenosis / SRS mortality 1.84 pt has been evaluated for Minimally invasive Aortic valve replacement on Thursday 11/30 PMH: HLP, heart murmur CT chest without contrast pending carotid US < 50% stenosis bilaterally EF 50% 11/30 pt went into OR, when undergoing CVC line placement , there was difficulty with hematoma right neck area OR aborted, pt sent to CVICU for Observation / Pt A&0 x 4 , moves all extremities small hematoma right neck area 12/01 pt up in chair, ambulating well per PT right neck with mild swelling, no hematoma scheduled for surgery on saturday 12/02 no new complaints for surgery on wednesday12/05/16 Doing well s/p mini AVR. No complaints Objective: Vital Signs Date Time Temp Pulse Resp B/P (MAP) Pulse Ox O2 Delivery O2 Flow Rate FiO2 12/05/16 08:48 97 Nasal Cannula 2.00 12/05/16 07:00 97.8 74 16 120/57 (78) 96 123/55 (77) 12/05/16 07:00 74 12/05/16 07:00 96 Nasal Cannula 4.00 12/05/16 03:20 99 Nasal Cannula 3.00 12/05/16 03:20 98.4 75 16 105/56 (72) 98 120/53 (75) 12/05/16 03:00 71 12/05/16 03:00 75 120/53 12/05/16 00:00 66 122/61 12/04/16 23:32 65 12/04/16 23:22 98.8 68 16 100/55 (70) 99 104/2 (36) 12/04/16 23:22 99 Nasal Cannula 3.00 12/04/16 22:00 70 91/46 12/04/16 21:29 96 Nasal Cannula 3.00 12/04/16 21:20 88 Nasal Cannula 4.00 12/04/16 20:30 99 Nasal Cannula 2.00 12/04/16 20:00 62 135/67 12/04/16 19:45 74 132/74 12/04/16 19:40 61 139/68 12/04/16 19:35 99 Nasal Cannula 3.00 12/04/16 19:35 61 121/66 12/04/16 19:30 98 Nasal Cannula 4.00 12/04/16 19:30 98.3 66 16 104/67 (79) 98 112/57 (75) 12/04/16 19:30 66 85/47 12/04/16 19:00 64 12/04/16 18:00 60 12/04/16 18:00 97.0 60 15 110/60 (77) 96 121/84 (96) 12/04/16 17:46 97 Nasal Cannula 3.00 12/04/16 17:45 98 Nasal Cannula 3 12/04/16 17:03 98 40 12/04/16 17:00 96.9 56 16 101/66 (78) 98 107/57 (74) 12/04/16 17:00 12 12/04/16 16:15 98 40 12/04/16 15:00 50 12/04/16 14:30 97.4 12/04/16 14:25 99 50 12/04/16 14:20 97.8 68 12 106/66 (79) 100 108/60 (76) 12/04/16 14:20 68 Labs: Laboratory Tests Test 12/05/16 04:20 White Blood Count 11.8 TH/MM3 (4.0-11.0) Red Blood Count 3.68 MIL/MM3 (4.50-5.90) Hemoglobin 10.5 GM/DL (13.0-17.0) Hematocrit 31.9 % (39.0-51.0) Mean Corpuscular Volume 86.8 FL (80.0-100.0) Mean Corpuscular Hemoglobin 28.5 PG (27.0-34.0) Mean Corpuscular Hemoglobin Concent 32.8 % (32.0-36.0) Red Cell Distribution Width 13.7 % (11.6-17.2) Platelet Count 131 TH/MM3 (150-450) Mean Platelet Volume 9.9 FL (7.0-11.0) Neutrophils (%) (Auto) 83.5 % (16.0-70.0) Lymphocytes (%) (Auto) 5.3 % (9.0-44.0) Monocytes (%) (Auto) 11.2 % (0.0-8.0) Eosinophils (%) (Auto) 0.0 % (0.0-4.0) Basophils (%) (Auto) 0.0 % (0.0-2.0) Neutrophils # (Auto) 9.9 TH/MM3 (1.8-7.7) Lymphocytes # (Auto) 0.6 TH/MM3 (1.0-4.8) Monocytes # (Auto) 1.3 TH/MM3 (0-0.9) Eosinophils # (Auto) 0.0 TH/MM3 (0-0.4) Basophils # (Auto) 0.0 TH/MM3 (0-0.2) CBC Comment DIFF FINAL Differential Comment Blood Urea Nitrogen 23 MG/DL (7-18) Creatinine 0.79 MG/DL (0.60-1.30) Random Glucose 106 MG/DL (74-106) Calcium Level 7.8 MG/DL (8.5-10.1) Magnesium Level 2.1 MG/DL (1.5-2.5) Sodium Level 140 MEQ/L (136-145) Potassium Level 4.3 MEQ/L (3.5-5.1) Chloride Level 106 MEQ/L (98-107) Carbon Dioxide Level 26.8 MEQ/L (21.0-32.0) Anion Gap 7 MEQ/L (5-15) Estimat Glomerular Filtration Rate 96 ML/MIN (>89) Result Diagram: 12/05/16 04212/05/16 042 Imaging: Last 24 hours Impressions Chest X-Ray 12/05/16 0500 Signed Impressions: Service Date/Time: Monday, December 05, 2016 04:14 - CONCLUSION: 1. Left central line in superior vena cava. Subsegmental basilar airspace disease. Extubation. Ole Dee MD Cardiovascular: IRR Telemetry: SR Pulmonary: Few crackles bilat GI/: NABS, NT Incision: dry and intact CT: 460 since OR Plan: Diurese Transfer to stepdown Advance diet Encourage ambulation Remove pineda Beta magali (1) Chest pain Plan: ASA, statin , BB (2) Severe aortic stenosis Plan: OR cancelled yesterday , pt developed hematoma while having right IJ CVC line placed NECK US : no pseudoaneurysm, thrombosis for mini AVR on wednesday (3) Hypertension Plan: BP control (4) Hyperlipemia Piper Adames MD Dec 05, 2016 09:28
[2016-12-05] MEDS ORDERED: GLUCAGON 1 MG/ML VIAL OTHER PRN (09:30)
[2016-12-05] MEDS ORDERED: DEXTROSE 50% IN WATER 50 ML VIAL(D50) IV PRN (09:30)
[2016-12-05] MEDS ORDERED: BISACODYL 10 MG SUPP RECTAL PRN (09:30)
[2016-12-05] MEDS: INSULIN ASPART SUPPLEMENTAL SCALE SQ SCH ×4 (10:14→20:56)
[2016-12-05] MEDS: FUROSEMIDE 40 MG/4 ML VIAL IV PUSH SCH ×2 (11:30→17:42)
--- NOTE | 2016-12-05 13:28 | RADRPT ---
EXAM DATE/TIME: 12/05/2016 12:28 [facility] COMPARISON: CHEST SINGLE AP, December 04, 2016, 15:01. CHEST SINGLE AP, December 05, 2016, 4:14. INDICATIONS : Chest tube dislodgement. MEDICAL HISTORY : Hypercholesterolemia. SURGICAL HISTORY : CABG. ENCOUNTER: Initial ACUITY: 1 day PAIN SCORE: 0/10 LOCATION: Bilateral chest FINDINGS: Central line in good position. There is mild compensated cardiomegaly. There is no pneumothorax. Th e portion of the bony skeleton visualized is unremarkable. CONCLUSION: Negative for pneumothorax. Barrie Handy MD FACR on December 05, 2016 at 13:25 Board Certified Radiologist. This report was verified electronically.
--- NOTE | 2016-12-05 17:05 | HHI.PR ---
Subjective Remarks Follow-up on chest pain. Patient doing okay after extubation yesterday. Has been weaned off of all drips including pressors. Nursing reports that the patient's chest to dislodged automatically when he stood up to urinate. Patient currently postop from Minimally Invasive AVR. Patient himself says he feels okay, no nausea or vomiting, eating ok. Objective Vital Signs Date Time Temp Pulse Resp B/P (MAP) Pulse Ox O2 Delivery O2 Flow Rate FiO2 12/05/16 15:00 93 12/05/16 15:00 96 Nasal Cannula 2.00 12/05/16 15:00 98.2 93 16 137/86 (103) 96 Automatic Cuff 12/05/16 13:00 16 12/05/16 11:00 98.7 84 17 114/56 (75) 97 Arterial Line 12/05/16 11:00 97 Nasal Cannula 2.00 12/05/16 11:00 84 12/05/16 08:48 97 Nasal Cannula 2.00 12/05/16 07:00 97.8 74 16 120/57 (78) 96 123/55 (77) 12/05/16 07:00 74 12/05/16 07:00 96 Nasal Cannula 4.00 12/05/16 03:20 99 Nasal Cannula 3.00 12/05/16 03:20 98.4 75 16 105/56 (72) 98 120/53 (75) 12/05/16 03:00 71 12/05/16 03:00 75 120/53 12/05/16 00:00 66 122/61 12/04/16 23:32 65 12/04/16 23:22 98.8 68 16 100/55 (70) 99 104/2 (36) 12/04/16 23:22 99 Nasal Cannula 3.00 12/04/16 22:00 70 91/46 12/04/16 21:29 96 Nasal Cannula 3.00 12/04/16 21:20 88 Nasal Cannula 4.00 12/04/16 20:30 99 Nasal Cannula 2.00 12/04/16 20:00 62 135/67 12/04/16 19:45 74 132/74 12/04/16 19:40 61 139/68 12/04/16 19:35 99 Nasal Cannula 3.00 12/04/16 19:35 61 121/66 12/04/16 19:30 98 Nasal Cannula 4.00 12/04/16 19:30 98.3 66 16 104/67 (79) 98 112/57 (75) 12/04/16 19:30 66 85/47 12/04/16 19:00 64 12/04/16 18:00 60 12/04/16 18:00 97.0 60 15 110/60 (77) 96 121/84 (96) 12/04/16 17:46 97 Nasal Cannula 3.00 12/04/16 17:45 98 Nasal Cannula 3 12/04/16 17:03 98 40 I/O 12/04/16 12/04/16 12/04/16 12/05/16 12/05/16 12/05/16 06:59 14:59 22:59 06:59 14:59 22:59 Intake Total 480 ml 3000 ml 2845 ml 823 ml 50 ml Output Total 650 ml 1250 ml 1340 ml 1375 ml Balance -170 ml 1750 ml 1505 ml -552 ml 50 ml Intake Oral 480 ml 0 ml 370 ml IV Total 2845 ml 453 ml 50 ml Autotransfusion 900 ml Other 2100 ml Output Urine Total 650 ml 1250 ml 1110 ml 1145 ml Chest Tube Drainage Total 230 ml 230 ml # Bowel Movements 0 0 Result Diagram: 12/05/1641912/05/16419 Objective Remarks Gen.: No acute distress, awake and alert Respiratory: Scattered coarse sounds bilaterally, unlabored breathing Cardiovascular: Faint distant heart sounds, no obvious JVD A/P Problem List: (1) Severe aortic stenosis ICD Code: I35.0 - Nonrheumatic aortic (valve) stenosis (2) Chest pain ICD Code: R07.9 - Chest pain, unspecified (3) NSTEMI (non-ST elevated myocardial infarction) ICD Code: I21.4 - Non-ST elevation (NSTEMI) myocardial infarction Status: Acute (4) Hypertension ICD Code: I10 - Essential (primary) hypertension Assessment and Plan Patient is a 76-year-old male with primary medical history of hyperlipidemia who came into the hospital for complaints of chest pain. Patient states that he woke up sweating and was feeling "yucky." States he feels like he has "flu type of feeling." States when he got up he got dizzy. States he has a little bit of chest pain midsternal area, does not radiate anywhere, it is unrelieved by rest, not aggravated by any movement. Patient was then taken to have cardiac catheterization done by Dr. Bueno. Moderate LAD disease found. However, severe was found. CV surgery consulted. - NSTEMI - Troponins 0.22, 0.21. s/p Cath --> moderate LAD disease. Medical management (no stenting done) due to difficulty secondary to severe aortic stenosis. - Aspirin, plavix , will consider starting beta-blockers - Lipitor 40mg QHS. - Severe aortic stenosis -Status post Mini AVR replacement, s/p extubation, doing well cilnically Hypotension - Resolved Full code. SCDs Mervin rAevalo MD Dec 05, 2016 17:05
[2016-12-05] MEDS: DOCUSATE SODIUM 100 MG CAP PO SCH (20:32)
[2016-12-05] MEDS: SENNOSIDES 8.6 MG TAB PO SCH (20:33)
[2016-12-05] MEDS: ATORVASTATIN 10 MG TAB PO SCH (20:33)
[2016-12-05] MEDS: ACETAMINOPHEN/HYDROcodone 325 MG/5 MG TAB PO PRN (20:44)
[2016-12-05] MEDS ORDERED: METOPROLOL TARTRATE 25 MG TAB PO SCH (21:00)
[2016-12-06] VITALS (13 sets, daily range): BP systolic 106–131; BP diastolic 58–79; PULSE 80–100; RESP 16–22; TEMP 98.2–98.8; O2SAT 92–100
[2016-12-06] MEDS: INSULIN ASPART SUPPLEMENTAL SCALE SQ SCH ×5 (02:00→20:46)
[2016-12-06] MEDS: ceFAZolin 2 GM PREMIX 50 ML IV SCH (03:01)
[2016-12-06] MEDS: ACETAMINOPHEN/HYDROcodone 325 MG/5 MG TAB PO PRN ×2 (03:22→23:14)
[2016-12-06 04:11] LABS: AUTOMATED NEUTROPHIL # 10.1 TH/MM3 (1.8-7.7); BASOPHIL % 0.2 % (0.0-2.0); EOSINOPHIL % 0.1 % (0.0-4.0); HEMATOCRIT 30.9 % (39.0-51.0); HEMO FLAGS DIFF FINAL; LYMPH % 7.4 % (9.0-44.0); MEAN CELL VOLUME 86.1 FL (80.0-100.0); MEAN CORPUSCULAR HEMOGLOBIN 28.1 PG (27.0-34.0); MEAN CORPUSCULAR HGB CONC 32.6 % (32.0-36.0); MONO % 13.7 % (0.0-8.0); NEUT % 78.6 % (16.0-70.0); PLATELET COUNT 143 TH/MM3 (150-450); RED BLOOD COUNT 3.59 MIL/MM3 (4.50-5.90); RED CELL DISTRIBUTION WIDTH 13.9 % (11.6-17.2); WHITE BLOOD COUNT 12.9 TH/MM3 (4.0-11.0)
[2016-12-06 04:39] LABS: BICARBONATE 31.5 MEQ/L (21.0-32.0); MAGNESIUM 1.8 MG/DL (1.5-2.5); POTASSIUM 3.3 MEQ/L (3.5-5.1)
[2016-12-06] MEDS: PANTOPRAZOLE SOD 40 MG DELAYED RELEASE TAB PO SCH (06:37)
[2016-12-06] MEDS: FUROSEMIDE 40 MG/4 ML VIAL IV PUSH SCH ×2 (08:29→17:43)
[2016-12-06] MEDS: AMIODARONE 200 MG TAB PO SCH ×2 (08:29→20:40)
[2016-12-06] MEDS: MAGNESIUM HYDROXIDE SUSP 30 ML CUP PO SCH (08:29)
[2016-12-06] MEDS: POLYETHYLENE GLYCOL 17 GM PKG PO SCH (08:29)
[2016-12-06] MEDS: MULTIVITAMINS/MINERALS THERAPEUTIC TAB PO SCH (08:29)
[2016-12-06] MEDS: DOCUSATE SODIUM 100 MG CAP PO SCH ×2 (08:30→20:40)
[2016-12-06] MEDS: SODIUM CHLORIDE 0.9% FLUSH 10 ML FLUSH IV FLUSH SCH ×2 (08:30→17:45)
[2016-12-06] MEDS: ASPIRIN 81 MG CHEW TAB PO SCH (08:30)
[2016-12-06] MEDS: CARVEDILOL 3.125 MG TAB PO SCH ×2 (08:30→20:40)
[2016-12-06] MEDS: CLOPIDOGREL 75 MG TAB PO SCH (08:31)
--- NOTE | 2016-12-06 09:16 | EKG ---
Date Performed: 12/05/2016 Time Performed: 20:01:56 PTAGE: 76 years EKG: Sinus rhythm with PAC(s). LVH with secondary repolarization abnormality Inferior/lateral ST-T changes are probabl y due to ventricular hypertrophy Abnormal ECG NO PREVIOUS TRACING DOCTOR: Forest Hull Interpretating Date/Time 12/06/2016 09:14:17
--- NOTE | 2016-12-06 09:16 | PD.CAR.PN ---
CVT Progress Note CVT: POD #: 2 Subjective/Hospital Course: 76/ male presented to ED with chest pain , elevated troponins , underwent cardiac cath which revealed 30-50% stenosis in mid LAD, ECHO showed mean aortic gradient of 50mmhg / severe aortic stenosis / SRS mortality 1.84 pt has been evaluated for Minimally invasive Aortic valve replacement on Thursday 11/30 PMH: HLP, heart murmur CT chest without contrast pending carotid US < 50% stenosis bilaterally EF 50% 11/30 pt went into OR, when undergoing CVC line placement , there was difficulty with hematoma right neck area OR aborted, pt sent to CVICU for Observation / Pt A&0 x 4 , moves all extremities small hematoma right neck area 12/01 pt up in chair, ambulating well per PT right neck with mild swelling, no hematoma scheduled for surgery on saturday 12/02 no new complaints for surgery on wednesday12/05/16 Doing well s/p mini AVR. No complaints 12/06/16 Chest tube "fell out" yesterday. follow-up CXR shows no PTX. c/o incisional pain Objective: Vital Signs Date Time Temp Pulse Resp B/P (MAP) Pulse Ox O2 Delivery O2 Flow Rate FiO2 12/06/16 07:30 98.2 82 16 106/64 (78) 95 12/06/16 07:30 95 Nasal Cannula 2.00 12/06/16 07:30 87 12/06/16 04:30 18 12/06/16 03:00 97 Nasal Cannula 2.00 12/06/16 03:00 98.6 87 22 113/64 (80) 97 12/06/16 03:00 87 12/05/16 23:00 89 12/05/16 23:00 98.4 89 18 94/56 (69) 96 12/05/16 23:00 96 Nasal Cannula 2.00 12/05/16 20:48 96 Nasal Cannula 2.00 12/05/16 19:00 98.6 95 20 113/66 (82) 96 12/05/16 19:00 96 Nasal Cannula 2.00 12/05/16 19:00 95 12/05/16 15:00 93 12/05/16 15:00 96 Nasal Cannula 2.00 12/05/16 15:00 98.2 93 16 137/86 (103) 96 Automatic Cuff 12/05/16 13:00 16 12/05/16 11:00 98.7 84 17 114/56 (75) 97 Arterial Line 12/05/16 11:00 97 Nasal Cannula 2.00 12/05/16 11:00 84 Labs: Laboratory Tests Test 12/06/16 03:50 White Blood Count 12.9 TH/MM3 (4.0-11.0) Red Blood Count 3.59 MIL/MM3 (4.50-5.90) Hemoglobin 10.1 GM/DL (13.0-17.0) Hematocrit 30.9 % (39.0-51.0) Mean Corpuscular Volume 86.1 FL (80.0-100.0) Mean Corpuscular Hemoglobin 28.1 PG (27.0-34.0) Mean Corpuscular Hemoglobin Concent 32.6 % (32.0-36.0) Red Cell Distribution Width 13.9 % (11.6-17.2) Platelet Count 143 TH/MM3 (150-450) Mean Platelet Volume 9.2 FL (7.0-11.0) Neutrophils (%) (Auto) 78.6 % (16.0-70.0) Lymphocytes (%) (Auto) 7.4 % (9.0-44.0) Monocytes (%) (Auto) 13.7 % (0.0-8.0) Eosinophils (%) (Auto) 0.1 % (0.0-4.0) Basophils (%) (Auto) 0.2 % (0.0-2.0) Neutrophils # (Auto) 10.1 TH/MM3 (1.8-7.7) Lymphocytes # (Auto) 1.0 TH/MM3 (1.0-4.8) Monocytes # (Auto) 1.8 TH/MM3 (0-0.9) Eosinophils # (Auto) 0.0 TH/MM3 (0-0.4) Basophils # (Auto) 0.0 TH/MM3 (0-0.2) CBC Comment DIFF FINAL Differential Comment Blood Urea Nitrogen 22 MG/DL (7-18) Creatinine 0.97 MG/DL (0.60-1.30) Random Glucose 135 MG/DL (74-106) Calcium Level 7.7 MG/DL (8.5-10.1) Magnesium Level 1.8 MG/DL (1.5-2.5) Sodium Level 135 MEQ/L (136-145) Potassium Level 3.3 MEQ/L (3.5-5.1) Chloride Level 98 MEQ/L (98-107) Carbon Dioxide Level 31.5 MEQ/L (21.0-32.0) Anion Gap 6 MEQ/L (5-15) Estimat Glomerular Filtration Rate 75 ML/MIN (>89) Result Diagram: 12/06/16 0350 12/06/16 0350 Imaging: Last 24 hours Impressions Chest X-Ray 12/05/16 1216 Signed Impressions: Service Date/Time: Monday, December 05, 2016 12:28 - CONCLUSION: Negative for pneumothorax. Barrie Handy MD FACR Cardiovascular: RRR Telemetry: NSR Pulmonary: CTA GI/: NABS Incision: dry and intact Plan: CXR in AM Encourage ambulation Supp K, Mg Diurese (1) Chest pain Plan: ASA, statin , BB (2) Severe aortic stenosis Plan: OR cancelled yesterday , pt developed hematoma while having right IJ CVC line placed NECK US : no pseudoaneurysm, thrombosis for mini AVR on wednesday (3) Hypertension Plan: BP control (4) Hyperlipemia Piper Adames MD Dec 06, 2016 09:16
[2016-12-06] MEDS: RESP: ALBUTEROL 2.5 MG/IPRATROPIUM 0.5 MG NEB (SCH) NEB ×2 (09:56→14:41)
--- NOTE | 2016-12-06 20:11 | HHI.PR ---
Subjective Remarks Follow-up on chest pain. Patient says he is coughing a little today. Tolerating by mouth intake well, using the restroom without incident Objective Vital Signs Date Time Temp Pulse Resp B/P (MAP) Pulse Ox O2 Delivery O2 Flow Rate FiO2 12/06/16 18:00 90 12/06/16 17:00 92 18 131/79 (96) 100 12/06/16 17:00 90 12/06/16 15:00 96 Nasal Cannula 0.50 12/06/16 14:50 93 21 12/06/16 11:00 86 12/06/16 11:00 95 Nasal Cannula 2.00 12/06/16 11:00 98.8 89 16 113/67 (82) 92 12/06/16 09:57 98 Nasal Cannula 1.00 12/06/16 07:30 98.2 82 16 106/64 (78) 95 12/06/16 07:30 95 Nasal Cannula 2.00 12/06/16 07:30 87 12/06/16 04:30 18 12/06/16 03:00 97 Nasal Cannula 2.00 12/06/16 03:00 98.6 87 22 113/64 (80) 97 12/06/16 03:00 87 12/05/16 23:00 89 12/05/16 23:00 98.4 89 18 94/56 (69) 96 12/05/16 23:00 96 Nasal Cannula 2.00 12/05/16 20:48 96 Nasal Cannula 2.00 I/O 12/05/16 12/05/16 12/05/16 12/06/16 12/06/16 12/06/16 07:00 15:00 23:00 07:00 15:00 23:00 Intake Total 823 ml 50 ml 859 ml 730 ml 720 ml Output Total 1375 ml 1790 ml 1100 ml 1075 ml Balance -552 ml 50 ml -931 ml -370 ml -355 ml Intake Oral 370 ml 690 ml 630 ml 720 ml IV Total 453 ml 50 ml 169 ml 100 ml Output Urine Total 1145 ml 1590 ml 1100 ml 1075 ml Stool Total 0 ml 0 ml Chest Tube Drainage Total 230 ml 200 ml # Bowel Movements 0 0 Result Diagram: 12/06/16 0350 12/06/16 0350 Objective Remarks Gen.: No acute distress, awake and alert Respiratory: Scattered coarse sounds bilaterally that are more diminished on the right than the left, nt distunlabored breathing Cardiovascular : distant heart sounds, no obvious JVD A/P Problem List: (1) Severe aortic stenosis ICD Code: I35.0 - Nonrheumatic aortic (valve) stenosis (2) Chest pain ICD Code: R07.9 - Chest pain, unspecified (3) NSTEMI (non-ST elevated myocardial infarction) ICD Code: I21.4 - Non-ST elevation (NSTEMI) myocardial infarction Status: Acute (4) Hypertension ICD Code: I10 - Essential (primary) hypertension Assessment and Plan Patient is a 76-year-old male with primary medical history of hyperlipidemia who came into the hospital for complaints of chest pain. Patient states that he woke up sweating and was feeling "yucky." States he feels like he has "flu type of feeling." States when he got up he got dizzy. States he has a little bit of chest pain midsternal area, does not radiate anywhere, it is unrelieved by rest, not aggravated by any movement. Patient was then taken to have cardiac catheterization done by Dr. Bueno. Moderate LAD disease found. However, severe was found. CV surgery consulted. - NSTEMI - Troponins 0.22, 0.21. s/p Cath --> moderate LAD disease. Medical management (no stenting done) due to difficulty secondary to severe aortic stenosis. - Aspirin, plavix , will consider starting beta-blockers - Lipitor 40mg QHS. - Severe aortic stenosis -Status post Mini AVR replacement, s/p extubation, doing well clinically, checking CBC in a.m. Full code. SCDs Mervin Arevalo MD Dec 06, 2016 20:11
[2016-12-06] MEDS: ATORVASTATIN 10 MG TAB PO SCH (20:40)
[2016-12-06] MEDS: SENNOSIDES 8.6 MG TAB PO SCH (20:40)
[2016-12-07] VITALS (28 sets, daily range): BP systolic 100–109; BP diastolic 53–71; PULSE 63–114; RESP 16–18; TEMP 98.2–99.1; O2SAT 92–97
[2016-12-07] MEDS ORDERED: MAGNESIUM SULFATE 2 GM/NS 100 ML IV ONE ×2 (01:30)
[2016-12-07] MEDS ORDERED: AMIODARONE 150 MG/D5W 97 ML BOLUS 60 MINUTES IV ONE ×2 (01:30)
[2016-12-07] MEDS: PANTOPRAZOLE SOD 40 MG DELAYED RELEASE TAB PO SCH (05:36)
[2016-12-07] MEDS: ACETAMINOPHEN/HYDROcodone 325 MG/5 MG TAB PO PRN (05:36)
[2016-12-07] MEDS: INSULIN ASPART SUPPLEMENTAL SCALE SQ SCH ×4 (05:58→20:20)
[2016-12-07 06:13] LABS: BICARBONATE 31.4 MEQ/L (21.0-32.0); POTASSIUM 3.7 MEQ/L (3.5-5.1)
[2016-12-07] MEDS: MULTIVITAMINS/MINERALS THERAPEUTIC TAB PO SCH (08:47)
[2016-12-07] MEDS: POLYETHYLENE GLYCOL 17 GM PKG PO SCH (08:47)
[2016-12-07] MEDS: MAGNESIUM HYDROXIDE SUSP 30 ML CUP PO SCH (08:47)
[2016-12-07] MEDS: CARVEDILOL 3.125 MG TAB PO SCH ×2 (08:47→20:16)
[2016-12-07] MEDS: FUROSEMIDE 40 MG/4 ML VIAL IV PUSH SCH ×2 (08:47→17:21)
[2016-12-07] MEDS: DOCUSATE SODIUM 100 MG CAP PO SCH ×2 (08:47→20:16)
[2016-12-07] MEDS: AMIODARONE 200 MG TAB PO SCH ×3 (08:48→17:21)
[2016-12-07] MEDS: ASPIRIN 81 MG CHEW TAB PO SCH (08:48)
[2016-12-07] MEDS: CLOPIDOGREL 75 MG TAB PO SCH (08:48)
[2016-12-07] MEDS: SODIUM CHLORIDE 0.9% FLUSH 10 ML FLUSH IV FLUSH SCH ×2 (08:49→20:16)
[2016-12-07] MEDS: RESP: ALBUTEROL 2.5 MG/IPRATROPIUM 0.5 MG NEB (SCH) NEB ×2 (09:43→13:32)
--- NOTE | 2016-12-07 11:12 | PD.CAR.PN ---
CVT Progress Note CVT: POD #: 3 Subjective/Hospital Course: 76/ male presented to ED with chest pain , elevated troponins , underwent cardiac cath which revealed 30-50% stenosis in mid LAD, ECHO showed mean aortic gradient of 50mmhg / severe aortic stenosis / SRS mortality 1.84 pt has been evaluated for Minimally invasive Aortic valve replacement on Thursday 11/30 PMH: HLP, heart murmur CT chest without contrast pending carotid US < 50% stenosis bilaterally EF 50% 11/30 pt went into OR, when undergoing CVC line placement , there was difficulty with hematoma right neck area OR aborted, pt sent to CVICU for Observation / Pt A&0 x 4 , moves all extremities small hematoma right neck area 12/01 pt up in chair, ambulating well per PT right neck with mild swelling, no hematoma scheduled for surgery on saturday 12/02 no new complaints for surgery on wednesday12/05/16 Doing well s/p mini AVR. No complaints 12/06/16 Chest tube "fell out" yesterday. follow-up CXR shows no PTX. c/o incisional pain 12/07/16 AFIB last night. Did not convert. No c/o otherwise Objective: Vital Signs Date Time Temp Pulse Resp B/P (MAP) Pulse Ox O2 Delivery O2 Flow Rate FiO2 12/07/16 09:43 97 21 12/07/16 08:30 98.2 63 16 109/53 (71) 93 12/07/16 07:15 93 Room Air 12/07/16 06:12 95 12/07/16 05:04 94 12/07/16 04:21 79 12/07/16 03:09 98.8 85 107/71 (83) 93 12/07/16 03:09 Room Air 12/07/16 03:00 83 12/07/16 02:04 108 111/67 12/07/16 02:00 100 12/07/16 01:00 82 12/07/16 00:00 84 12/06/16 23:46 Room Air 12/06/16 23:46 98.6 80 111/67 (82) 92 12/06/16 23:00 85 12/06/16 22:00 90 12/06/16 21:00 88 12/06/16 20:00 90 12/06/16 20:00 98.8 100 110/58 (75) 93 12/06/16 20:00 Room Air 12/06/16 19:00 91 12/06/16 18:00 90 12/06/16 17:00 92 18 131/79 (96) 100 12/06/16 17:00 90 12/06/16 15:00 96 Nasal Cannula 0.50 12/06/16 14:50 93 21 Labs: Laboratory Tests Test 12/07/16 05:30 Blood Urea Nitrogen 21 MG/DL (7-18) Creatinine 0.90 MG/DL (0.60-1.30) Random Glucose 133 MG/DL (74-106) Calcium Level 8.1 MG/DL (8.5-10.1) Sodium Level 133 MEQ/L (136-145) Potassium Level 3.7 MEQ/L (3.5-5.1) Chloride Level 94 MEQ/L (98-107) Carbon Dioxide Level 31.4 MEQ/L (21.0-32.0) Anion Gap 8 MEQ/L (5-15) Estimat Glomerular Filtration Rate 82 ML/MIN (>89) Result Diagram: 12/06/16 0350 12/07/16 0530 Cardiovascular: IRR Telemetry: AFIB Pulmonary: CTA GI/: NABS, NT Incision: dry and intact Plan: Amiodarone for AFIB Supp K Encourage ambulation Stim BM Home tomorrow or Wednesday (1) Chest pain Plan: ASA, statin , BB (2) Severe aortic stenosis Plan: OR cancelled yesterday , pt developed hematoma while having right IJ CVC line placed NECK US : no pseudoaneurysm, thrombosis for mini AVR on wednesday (3) Hypertension Plan: BP control (4) Hyperlipemia Piper Adames MD Dec 07, 2016 11:12
--- NOTE | 2016-12-07 16:36 | HHI.PR ---
Subjective Remarks Follow-up on chest pain. Patient had A. fib last night, was put on amiodarone, so far has apparently converted back based upon the telemetry strips. Denies any recurrence of his chest pain. Says he doesn't feel like eating well, denies having a bowel movement, thinks she'll feel better after having a bowel movement Objective Vital Signs Date Time Temp Pulse Resp B/P (MAP) Pulse Ox O2 Delivery O2 Flow Rate FiO2 12/07/16 15:00 99.1 83 16 109/67 (81) 95 12/07/16 15:00 95 Room Air 12/07/16 12:00 114 12/07/16 11:00 88 12/07/16 11:00 84 18 104/63 (77) 93 12/07/16 11:00 93 Room Air 12/07/16 10:00 94 12/07/16 09:43 97 21 12/07/16 09:00 104 12/07/16 08:30 98.2 63 16 109/53 (71) 93 12/07/16 08:00 92 12/07/16 07:15 93 Room Air 12/07/16 07:00 98 12/07/16 06:12 95 12/07/16 05:04 94 12/07/16 04:21 79 12/07/16 03:09 98.8 85 107/71 (83) 93 12/07/16 03:09 Room Air 12/07/16 03:00 83 12/07/16 02:04 108 111/67 12/07/16 02:00 100 12/07/16 01:00 82 12/07/16 00:00 84 12/06/16 23:46 Room Air 12/06/16 23:46 98.6 80 111/67 (82) 92 12/06/16 23:00 85 12/06/16 22:00 90 12/06/16 21:00 88 12/06/16 20:00 90 12/06/16 20:00 98.8 100 110/58 (75) 93 12/06/16 20:00 Room Air 12/06/16 19:00 91 12/06/16 18:00 90 12/06/16 17:00 92 18 131/79 (96) 100 12/06/16 17:00 90 I/O 12/06/16 12/06/16 12/06/16 12/07/16 12/07/16 12/07/16 07:00 15:00 23:00 07:00 15:00 23:00 Intake Total 730 ml 720 ml 240 ml Output Total 1100 ml 1075 ml 1100 ml Balance -370 ml -355 ml -860 ml Intake Oral 630 ml 720 ml 240 ml IV Total 100 ml Output Urine Total 1100 ml 1075 ml 1100 ml Stool Total 0 ml # Bowel Movements 0 Result Diagram: 12/06/16 0350 12/07/16 0530 Objective Remarks Gen.: No acute distress, awake and alert Respiratory: Scattered coarse sounds bilaterally that are more diminished on the right than the left, nt, NDtunlabored breathing Cardiovascular : distant heart sounds, no obvious JVD A/P Problem List: (1) Severe aortic stenosis ICD Code: I35.0 - Nonrheumatic aortic (valve) stenosis (2) Chest pain ICD Code: R07.9 - Chest pain, unspecified (3) NSTEMI (non-ST elevated myocardial infarction) ICD Code: I21.4 - Non-ST elevation (NSTEMI) myocardial infarction Status: Acute (4) Hypertension ICD Code: I10 - Essential (primary) hypertension Assessment and Plan Patient is a 76-year-old male with primary medical history of hyperlipidemia who came into the hospital for complaints of chest pain. Patient states that he woke up sweating and was feeling "yucky." States he feels like he has "flu type of feeling." States when he got up he got dizzy. States he has a little bit of chest pain midsternal area, does not radiate anywhere, it is unrelieved by rest, not aggravated by any movement. Patient was then taken to have cardiac catheterization done by Dr. Bueno. Moderate LAD disease found. However, severe was found. CV surgery consulted. - NSTEMI - Troponins 0.22, 0.21. s/p Cath --> moderate LAD disease. Medical management (no stenting done) due to difficulty secondary to severe aortic stenosis. - Aspirin, plavix , will consider starting beta-blockers - Lipitor 40mg QHS. constipation - reinforce daily miralax, giving suppository, and prn enema tonight if no BM afib - Patient denies any prior history of A. fib by memory, discussed case with Dr. Francisco, usually a common occurrence after surgery. Patient has converted over already, currently in sinus. We'll monitor. We will therefore hold off for CHADSVAsC score assessment unless it recurs at which point we will then proceed with Coumadin - Severe aortic stenosis -Status post Mini AVR replacement, s/p extubation, doing well clinically, continue baby aspirin. Anticipate d/c tomorow. Full code. SCDs Mervin Arevalo MD Dec 07, 2016 16:36
[2016-12-07] MEDS ORDERED: GLYCERIN ADULT 2 GM SUPP RECTAL ONE (16:45)
[2016-12-07] MEDS ORDERED: SOD PHOSPHATE/SOD BIPHOSPHATE (ADULT) ENEMA 133ML RECTAL PRN (20:00)
[2016-12-07] MEDS: ATORVASTATIN 10 MG TAB PO SCH (20:16)
[2016-12-07] MEDS: SENNOSIDES 8.6 MG TAB PO SCH (20:16)
[2016-12-08] VITALS (27 sets, daily range): BP systolic 94–125; BP diastolic 60–91; PULSE 62–102; RESP 12–24; TEMP 98.2–99.3; O2SAT 91–96
[2016-12-08] MEDS: ACETAMINOPHEN/HYDROcodone 325 MG/5 MG TAB PO PRN (02:04)
[2016-12-08] MEDS: PANTOPRAZOLE SOD 40 MG DELAYED RELEASE TAB PO SCH (05:27)
[2016-12-08] MEDS: INSULIN ASPART SUPPLEMENTAL SCALE SQ SCH ×4 (06:07→21:00)
[2016-12-08 07:02] LABS: BICARBONATE 31.7 MEQ/L (21.0-32.0); POTASSIUM 3.5 MEQ/L (3.5-5.1)
[2016-12-08] MEDS: POLYETHYLENE GLYCOL 17 GM PKG PO SCH (09:00)
[2016-12-08] MEDS: MAGNESIUM HYDROXIDE SUSP 30 ML CUP PO SCH (09:00)
[2016-12-08] MEDS ORDERED: POTASSIUM CHLORIDE 25 MEQ EFFERVESCENT TAB PO ONE (09:15)
[2016-12-08] MEDS: CARVEDILOL 3.125 MG TAB PO SCH (09:19)
[2016-12-08] MEDS: CLOPIDOGREL 75 MG TAB PO SCH (09:19)
[2016-12-08] MEDS: AMIODARONE 200 MG TAB PO SCH ×3 (09:20→18:28)
[2016-12-08] MEDS: DOCUSATE SODIUM 100 MG CAP PO SCH ×3 (09:20→21:18)
[2016-12-08] MEDS: MULTIVITAMINS/MINERALS THERAPEUTIC TAB PO SCH (09:20)
[2016-12-08] MEDS: ASPIRIN 81 MG CHEW TAB PO SCH (09:20)
[2016-12-08] MEDS: SODIUM CHLORIDE 0.9% FLUSH 10 ML FLUSH IV FLUSH SCH ×2 (09:22→21:00)
[2016-12-08] MEDS ORDERED: POTASSIUM CHLORIDE 20 MEQ CONTROLLED RELEASE TAB PO ONE (10:15)
--- NOTE | 2016-12-08 10:15 | PD.CAR.PN ---
CVT Progress Note Subjective/Hospital Course: 76/ male presented to ED with chest pain , elevated troponins , underwent cardiac cath which revealed 30-50% stenosis in mid LAD, ECHO showed mean aortic gradient of 50mmhg / severe aortic stenosis / SRS mortality 1.84 pt has been evaluated for Minimally invasive Aortic valve replacement on Thursday 11/30 PMH: HLP, heart murmur CT chest without contrast pending carotid US < 50% stenosis bilaterally EF 50% 11/30 pt went into OR, when undergoing CVC line placement , there was difficulty with hematoma right neck area OR aborted, pt sent to CVICU for Observation / Pt A&0 x 4 , moves all extremities small hematoma right neck area 12/01 pt up in chair, ambulating well per PT right neck with mild swelling, no hematoma scheduled for surgery on saturday 12/02 no new complaints for surgery on wednesday12/05/16 Doing well s/p mini AVR. No complaints 12/06/16 Chest tube "fell out" yesterday. follow-up CXR shows no PTX. c/o incisional pain 12/07/16 AFIB last night. Did not convert. No c/o otherwise 12/08/16 pt converted last pm, then went back into afib this am, rate 95-105 kecia v score 2.[address] Bueno start pt on Coumadin since he is [facility] v wires dc this am , silk suture removed left groin start coumadin this afternoon, may need to consider bridging with lovenox Objective: GENERAL: SKIN: Warm and dry. incision intact and well approximated right upper chest wall vires removed, silk left groin suture removed HEAD: Normocephalic. EYES: No scleral icterus. No injection or drainage. NECK: Supple, trachea midline. No JVD or lymphadenopathy. CARDIOVASCULAR: irregular rate and rhythm without murmurs, gallops, or rubs. RESPIRATORY: Breath sounds equal bilaterally. No accessory muscle use. GASTROINTESTINAL: Abdomen soft, non-tender, nondistended. MUSCULOSKELETAL: No cyanosis, or edema. BACK: Nontender without obvious deformity. No CVA tenderness. Vital Signs Date Time Temp Pulse Resp B/P (MAP) Pulse Ox O2 Delivery O2 Flow Rate FiO2 12/08/16 07:26 96 21 12/08/16 06:08 73 12/08/16 05:36 73 12/08/16 04:00 72 12/08/16 03:03 Room Air 12/08/16 03:00 75 12/08/16 03:00 98.2 76 103/66 (78) 93 12/08/16 02:00 78 12/08/16 01:00 76 12/08/16 00:04 Room Air 12/08/16 00:02 98.7 82 94/60 (71) 91 12/08/16 00:00 84 12/07/16 23:00 78 12/07/16 22:00 80 12/07/16 21:00 80 12/07/16 20:43 96 12/07/16 20:00 Room Air 12/07/16 20:00 80 12/07/16 20:00 98.7 83 100/68 (79) 92 12/07/16 19:00 81 12/07/16 18:00 82 12/07/16 17:00 84 12/07/16 16:00 86 12/07/16 15:00 99.1 83 16 109/67 (81) 95 12/07/16 15:00 88 12/07/16 15:00 95 Room Air 12/07/16 14:00 84 12/07/16 13:00 96 12/07/16 12:00 114 12/07/16 11:00 88 12/07/16 11:00 84 18 104/63 (77) 93 12/07/16 11:00 93 Room Air Labs: Laboratory Tests Test 12/08/16 06:27 Blood Urea Nitrogen 28 MG/DL (7-18) Creatinine 0.99 MG/DL (0.60-1.30) Random Glucose 110 MG/DL (74-106) Calcium Level 7.8 MG/DL (8.5-10.1) Sodium Level 130 MEQ/L (136-145) Potassium Level 3.5 MEQ/L (3.5-5.1) Chloride Level 92 MEQ/L (98-107) Carbon Dioxide Level 31.7 MEQ/L (21.0-32.0) Anion Gap 6 MEQ/L (5-15) Estimat Glomerular Filtration Rate 74 ML/MIN (>89) Result Diagram: 12/06/16 0350 12/08/16 0627 Telemetry: Afib (1) Chest pain Plan: ASA, statin , BB (2) Severe aortic stenosis Plan: (3) S/P AVR (aortic valve replacement) Plan: on ASA, BB , statin pulm toileting (4) Hypertension Plan: BP control (5) Hyperlipemia Plan: statin (6) Afib Plan: kecia v score 2.[address] Bueno start Coumadin as [facility] pt will start this pm, continue ASA start low dose lovenox Myesha Manzo Dec 08, 2016 10:15
[2016-12-08 12:46] LABS: INTERNATIONAL NORMALIZED RATIO 1.1 RATIO; PROTHROMBIN TIME - PATIENT 12.3 SEC (9.8-11.6)
[2016-12-08 13:20] LABS: MAGNESIUM 2.7 MG/DL (1.5-2.5)
[2016-12-08] MEDS: POTASSIUM CHLORIDE 20 MEQ CONTROLLED RELEASE TAB PO SCH (13:48)
[2016-12-08] MEDS: FUROSEMIDE 40 MG TAB PO SCH (13:48)
[2016-12-08] MEDS ORDERED: WARFARIN SOD 5 MG TAB PO SCH (16:00)
[2016-12-08] MEDS: ENOXAPARIN SODIUM 40 MG/0.4 ML SYRINGE SQ SCH (16:42)
--- NOTE | 2016-12-08 18:11 | HHI.PR ---
Subjective Remarks Follow-up on chest pain. Nursing reports patient did have more A. fib on telemetry, patient is agreeable to being on blood thinner. He himself says he doesn't (feel right). Was to go home tomorrow. When asked specifically what is bothering him, he says that he is just not eating well, he then specifies exactly what he ate but says that he couldn't eat his sandwich, just did not have an appetite, denies nausea nonetheless along with any vomiting. No diarrhea. Is very concerned about his decreased intake about his typical meals. Says he did feel better after having the bowel movement nonetheless. Nursing also corroborates that he felt better after the bowel movement Objective Vital Signs Date Time Temp Pulse Resp B/P (MAP) Pulse Ox O2 Delivery O2 Flow Rate FiO2 12/08/16 15:31 94 21 12/08/16 08:00 98.2 102 20 125/91 (102) 94 12/08/16 08:00 94 Room Air 12/08/16 07:26 96 21 12/08/16 06:08 73 12/08/16 05:36 73 12/08/16 04:00 72 12/08/16 03:03 Room Air 12/08/16 03:00 75 12/08/16 03:00 98.2 76 103/66 (78) 93 12/08/16 02:00 78 12/08/16 01:00 76 12/08/16 00:04 Room Air 12/08/16 00:02 98.7 82 94/60 (71) 91 12/08/16 00:00 84 12/07/16 23:00 78 12/07/16 22:00 80 12/07/16 21:00 80 12/07/16 20:43 96 12/07/16 20:00 Room Air 12/07/16 20:00 80 12/07/16 20:00 98.7 83 100/68 (79) 92 12/07/16 19:00 81 I/O 12/07/16 12/07/16 12/07/16 12/08/16 12/08/16 12/08/16 06:59 14:59 22:59 06:59 14:59 22:59 Intake Total 240 ml 1020 ml 240 ml Output Total 1100 ml 325 ml 400 ml Balance -860 ml 695 ml -160 ml Intake Oral 240 ml 1020 ml 240 ml Output Urine Total 1100 ml 325 ml 400 ml # Voids 1 # Bowel Movements 1 Result Diagram: 12/06/16 0350 12/08/16 0627 Objective Remarks Gen.: No acute distress, awake and alert Respiratory: Adequate breath sounds bilaterally one heard on lateral aspects, breath sounds are scattered and course Abdomen: Soft, nontender, nondistended, positive bowel sounds, no focal palpable masses A/P Problem List: (1) Severe aortic stenosis ICD Code: I35.0 - Nonrheumatic aortic (valve) stenosis (2) Chest pain ICD Code: R07.9 - Chest pain, unspecified (3) NSTEMI (non-ST elevated myocardial infarction) ICD Code: I21.4 - Non-ST elevation (NSTEMI) myocardial infarction Status: Acute (4) Hypertension ICD Code: I10 - Essential (primary) hypertension Assessment and Plan Patient is a 76-year-old male with primary medical history of hyperlipidemia who came into the hospital for complaints of chest pain. Patient states that he woke up sweating and was feeling "yucky." States he feels like he has "flu type of feeling." States when he got up he got dizzy. States he has a little bit of chest pain midsternal area, does not radiate anywhere, it is unrelieved by rest, not aggravated by any movement. Patient was then taken to have cardiac catheterization done by Dr. Bueno. Moderate LAD disease found. However, severe was found. CV surgery consulted. - NSTEMI - Secondary to mitral valve stenosis, continue aspirin, continue Lipitor, continue b Blockers decreasedl by mouth intake - likely due to constipation but will order CMP as well, continue daily MiraLAX, adding on Colace by mouth, giving an additional glycerin suppository since the patient is requesting this afib -On amiodarone, continue Coumadin and bridging with Lovenox due to very high chadsvasc score, - Severe aortic stenosis -Status post Mini AVR replacement, s/p extubation, doing well clinically, continue baby aspirin. lovenox, anticipate d/c gurdeep. Mervin Arevalo MD Dec 08, 2016 18:11
[2016-12-08] MEDS ORDERED: GLYCERIN ADULT 2 GM SUPP RECTAL ONE (20:00)
[2016-12-08 20:43] LABS: ALKALINE PHOSPHATASE 58 U/L (45-117); ALT (GPT) 32 U/L (12-78); ANION GAP 7 MEQ/L (5-15); AST (GOT) 53 U/L (15-37); BICARBONATE 32.5 MEQ/L (21.0-32.0); BLOOD UREA NITROGEN 28 MG/DL (7-18); CHLORIDE 92 MEQ/L (98-107); GLOMERULAR FILTRATION RATE 61 ML/MIN (>89); POTASSIUM 4.4 MEQ/L (3.5-5.1); SODIUM (NA) 131 MEQ/L (136-145); TOTAL BILIRUBIN ADULT 0.5 MG/DL (0.2-1.0)
[2016-12-08] MEDS: CARVEDILOL 6.25 MG TAB PO SCH (21:00)
[2016-12-08] MEDS: SENNOSIDES 8.6 MG TAB PO SCH (21:18)
[2016-12-08] MEDS: ATORVASTATIN 10 MG TAB PO SCH (21:18)
[2016-12-09] VITALS (15 sets, daily range): BP systolic 97–124; BP diastolic 66–76; PULSE 66–74; RESP 12–16; TEMP 98.3–98.5; O2SAT 93–94
[2016-12-09] MEDS: ENOXAPARIN SODIUM 40 MG/0.4 ML SYRINGE SQ SCH (05:05)
[2016-12-09] MEDS: PANTOPRAZOLE SOD 40 MG DELAYED RELEASE TAB PO SCH (05:05)
[2016-12-09] MEDS: INSULIN ASPART SUPPLEMENTAL SCALE SQ SCH ×2 (06:05→12:00)
[2016-12-09 06:52] LABS: HEMATOCRIT 27.8 % (39.0-51.0); MEAN CELL VOLUME 86.5 FL (80.0-100.0); MEAN CORPUSCULAR HEMOGLOBIN 28.6 PG (27.0-34.0); MEAN CORPUSCULAR HGB CONC 33.1 % (32.0-36.0); PLATELET COUNT 241 TH/MM3 (150-450); RED BLOOD COUNT 3.22 MIL/MM3 (4.50-5.90); RED CELL DISTRIBUTION WIDTH 13.7 % (11.6-17.2); REVIEW FLAG FINAL; WHITE BLOOD COUNT 11.5 TH/MM3 (4.0-11.0)
[2016-12-09 07:16] LABS: BICARBONATE 31.9 MEQ/L (21.0-32.0); MAGNESIUM 2.7 MG/DL (1.5-2.5); POTASSIUM 4.1 MEQ/L (3.5-5.1)
[2016-12-09] MEDS: POTASSIUM CHLORIDE 20 MEQ CONTROLLED RELEASE TAB PO SCH (10:19)
[2016-12-09] MEDS: MULTIVITAMINS/MINERALS THERAPEUTIC TAB PO SCH (10:19)
[2016-12-09] MEDS: CARVEDILOL 6.25 MG TAB PO SCH (10:19)
[2016-12-09] MEDS: ASPIRIN 81 MG CHEW TAB PO SCH (10:19)
[2016-12-09] MEDS: DOCUSATE SODIUM 100 MG CAP PO SCH ×2 (10:20)
[2016-12-09] MEDS: FUROSEMIDE 40 MG TAB PO SCH (10:20)
[2016-12-09] MEDS: SODIUM CHLORIDE 0.9% FLUSH 10 ML FLUSH IV FLUSH SCH (10:20)
[2016-12-09] MEDS: AMIODARONE 200 MG TAB PO SCH ×2 (10:20→14:15)
[2016-12-09] MEDS: POLYETHYLENE GLYCOL 17 GM PKG PO SCH (10:21)
[2016-12-09] MEDS: MAGNESIUM HYDROXIDE SUSP 30 ML CUP PO SCH (10:21)
[2016-12-09] MEDS ORDERED: CARV6.25 PO (10:33)
[2016-12-09] MEDS ORDERED: ASPI81CH25 PO (10:33)
[2016-12-09] MEDS ORDERED: DOCU1CAP39 PO (10:33)
[2016-12-09] MEDS ORDERED: THERM PO (10:33)
[2016-12-09] MEDS ORDERED: COUM5TAB PO (10:33)
[2016-12-09] MEDS ORDERED: AMIO200T PO (10:33)
[2016-12-09] MEDS ORDERED: HYDR-3516 PO (10:33)
[2016-12-09 11:02] LABS: INTERNATIONAL NORMALIZED RATIO 1.4 RATIO; PROTHROMBIN TIME - PATIENT 15.3 SEC (9.8-11.6)
--- NOTE | 2016-12-09 11:15 | HHI.DS ---
Myesha Manzo 12/09/16 1115: Discharge Summary Admission Date Nov 24, 2016 at 12:53 Discharge Date: Dec 09, 2016 Admitting Diagnosis NSTEMI, Chest pain (1) Chest pain ICD Codes: R07.9 - Chest pain, unspecified Status: Acute (2) NSTEMI (non-ST elevated myocardial infarction) ICD Codes: I21.4 - Non-ST elevation (NSTEMI) myocardial infarction Status: Acute (3) Severe aortic stenosis ICD Codes: I35.0 - Nonrheumatic aortic (valve) stenosis (4) Hyperlipemia ICD Codes: E78.5 - Hyperlipidemia, unspecified (5) Hypertension ICD Codes: I10 - Essential (primary) hypertension (6) Chest pain ICD Codes: R07.9 - Chest pain, unspecified (7) S/P AVR (aortic valve replacement) ICD Codes: Z95.2 - Presence of prosthetic heart valve (8) Afib ICD Codes: I48.91 - Unspecified atrial fibrillation Procedures 1. Minimally Invasive AVR with a 25 Mosaic Cinch II Tissue Valve 12/04/16 2. Ultrasound Guided Left Femoral Arterial and Venous Percutaneous Cannulation for CPB 3. Intercostal Nerve Block 4. Perclose Closure of Femoral Artery Brief History 76/ male presented to ED with chest pain , elevated troponins , underwent cardiac cath which revealed 30-50% stenosis in mid LAD, ECHO showed mean aortic gradient of 50mmhg / severe aortic stenosis / SRS mortality 1.84 pt has been evaluated for Minimally invasive Aortic valve replacement on Thursday 11/30 PMH: HLP, heart murmur CT chest without contrast pending carotid US < 50% stenosis bilaterally EF 50% 11/30 pt went into OR, when undergoing CVC line placement , there was difficulty with hematoma right neck area OR aborted, pt sent to CVICU for Observation / Pt A&0 x 4 , moves all extremities small hematoma right neck area CBC/BMP: 12/09/16 0617 12/09/16 0617 Significant Findings Laboratory Tests Test 12/07/16 05:30 12/08/16 06:27 12/08/16 11:22 12/08/16 19:29 Blood Urea Nitrogen 21 MG/DL (7-18) 28 MG/DL (7-18) 28 MG/DL (7-18) Random Glucose 133 MG/DL (74-106) 110 MG/DL (74-106) 168 MG/DL (74-106) Calcium Level 8.1 MG/DL (8.5-10.1) 7.8 MG/DL (8.5-10.1) 7.9 MG/DL (8.5-10.1) Sodium Level 133 MEQ/L (136-145) 130 MEQ/L (136-145) 131 MEQ/L (136-145) Chloride Level 94 MEQ/L (98-107) 92 MEQ/L (98-107) 92 MEQ/L (98-107) Estimat Glomerular Filtration Rate 82 ML/MIN (>89) 74 ML/MIN (>89) 61 ML/MIN (>89) Prothrombin Time 12.3 SEC (9.8-11.6) Phosphorus Level 2.3 MG/DL (2.5-4.9) Magnesium Level 2.7 MG/DL (1.5-2.5) Albumin 2.6 GM/DL (3.4-5.0) Aspartate Amino Transf (AST/SGOT) 53 U/L (15-37) Carbon Dioxide Level 32.5 MEQ/L (21.0-32.0) Test 12/09/16 06:17 12/09/16 09:30 White Blood Count 11.5 TH/MM3 (4.0-11.0) Red Blood Count 3.22 MIL/MM3 (4.50-5.90) Hemoglobin 9.2 GM/DL (13.0-17.0) Hematocrit 27.8 % (39.0-51.0) Blood Urea Nitrogen 28 MG/DL (7-18) Random Glucose 111 MG/DL (74-106) Calcium Level 8.1 MG/DL (8.5-10.1) Magnesium Level 2.7 MG/DL (1.5-2.5) Sodium Level 133 MEQ/L (136-145) Chloride Level 94 MEQ/L (98-107) Estimat Glomerular Filtration Rate 70 ML/MIN (>89) Imaging Last Impressions Chest X-Ray 12/05/16 1216 Signed Impressions: Service Date/Time: Monday, December 05, 2016 12:28 - CONCLUSION: Negative for pneumothorax. Barrie Handy MD FACR Neck Ultrasound 11/30/16 0000 Signed Impressions: Service Date/Time: Wednesday, November 30, 2016 08:19 - CONCLUSION: Negative for pseudoaneurysm, thrombosis or occlusion. Barrie Handy MD FACR Chest CT 11/27/16 0000 Signed Impressions: Service Date/Time: Sunday, November 27, 2016 21:33 - CONCLUSION: 1. Other than trace left base atelectasis, the lungs are clear. 2. Mild panchamber enlargement of the heart. Calcified aortic valve and mildly prominent ascending aorta. Tawanda Garcia MD Carotid Artery Ultrasound 11/26/16 0000 Signed Impressions: Service Date/Time: November 09:25 - CONCLUSION: 1. Mild atherosclerotic disease bilaterally. However, no significant stenosis is present within either internal carotid artery (less than 50%% stenosis). 2. There is antegrade flow in both vertebral arteries. Tawanda Solis MD PE at Discharge GENERAL: SKIN: Warm and dry./incision intact and well approximated right upper chest area , left groin incision intact and well approximated, some ecchymosis to groin site / improving HEAD: Atraumatic. Normocephalic. EYES: Pupils equal and round. No scleral icterus. No injection or drainage. ENT: No nasal bleeding or discharge. Mucous membranes pink and moist. NECK: Trachea midline. No JVD. CARDIOVASCULAR: Regular rate and rhythm. RESPIRATORY: No accessory muscle use. Clear to auscultation. Breath sounds equal bilaterally. GASTROINTESTINAL: Abdomen soft, non-tender, nondistended. Hepatic and splenic margins not palpable. MUSCULOSKELETAL: Extremities without clubbing, cyanosis, or edema. No obvious deformities. NEUROLOGICAL: Awake and alert. No obvious cranial nerve deficits. Motor grossly within normal limits. Five out of 5 muscle strength in the arms and legs. Normal speech. PSYCHIATRIC: Appropriate mood and affect; insight and judgment normal. Hospital Course 12/01 pt up in chair, ambulating well per PT right neck with mild swelling, no hematoma scheduled for surgery on saturday 12/02 no new complaints for surgery on wednesday12/05/16 Doing well s/p mini AVR. No complaints 12/06/16 Chest tube "fell out" yesterday. follow-up CXR shows no PTX. c/o incisional pain 12/07/16 AFIB last night. Did not convert. No c/o otherwise 12/08/16 pt converted last pm, then went back into afib this am, rate 95-105 kecia v score 2.[address] Bueno start pt on Coumadin since he is [facility] v wires dc this am , silk suture removed left groin start coumadin this afternoon, may need to consider bridging with lovenox 12/09/16 doing well, on room air INR 1.1, continue Coumadin goal 2-3 x 2-4 weeks [facility] , discharge instructions given will dc home today Pt Condition on Discharge: Stable Discharge Disposition: Disch w/ Home Health Serv Discharge Instructions DIET: Follow Instructions for: Heart Healthy Diet, Coumadin (Warfarin) Diet Activities you can perform: Full Weight Bearing, Shower Only-No Bath Activities to avoid: Strenuous Activity, Driving Additional Activity Instructio: no lifting > 8 lbs or gallon of milk Follow up Referrals: Cardiology - 4 Weeks with Mera Bueno MD PCP Follow-up Surgical with Cornel Millan MD New Orders: PT/INR - 2-3 Days New Medications: Amiodarone (Amiodarone) 200 Mg Tab 400 MG PO TID for heart rhythm, #60 TAB 400mg tid x 3 days , then 400mg bid x 3 days , then 200mg bid x 3 days , then 200mg daily Aspirin (Aspirin Low Strength) 81 Mg Chew 81 MG PO DAILY for Blood Clot Prevention, #100 EA 2 Refills Carvedilol (Coreg) 6.25 Mg Tab 6.25 MG PO BID for Blood Pressure Management, #60 TAB 2 Refills Docusate Sodium (Dok) 100 Mg Cap 100 MG PO BID for Constipation, #60 CAP 1 Refill Hydrocodone-Acetaminophen (Hydrocodone-Acetaminophen) 5-325 mg Tab 1 TAB PO Q6HR PRN for PAIN SCALE 1 TO 5, #40 TAB 0 Refills Multiple Vitamins W/ Minerals (Thera M Plus) 1 Tab 1 TAB PO DAILY for multi vitamin, #30 TAB 2 Refills Warfarin (Coumadin) 5 Mg Tab 5 MG PO DAILY@1600 for Blood Clot Prevention, #30 TAB 1 Refill check INR coumadin level on wednesday INR goal 2-3/ hol dofr INR > 3.5 Continued Medications: Pravastatin (Pravastatin) 10 Mg Tab Unknown Dose PO HS for Cholesterol Management, #30 TAB 0 Refills Mervin Arevalo MD 12/09/16 1307: Discharge Summary Discharge Date: Dec 09, 2016 Admitting Diagnosis [place] (1) NSTEMI (non-ST elevated myocardial infarction) ICD Codes: I21.4 - Non-ST elevation (NSTEMI) myocardial infarction Status: Acute (2) Severe aortic stenosis ICD Codes: I35.0 - Nonrheumatic aortic (valve) stenosis (3) S/P AVR (aortic valve replacement) ICD Codes: Z95.2 - Presence of prosthetic heart valve (4) Afib ICD Codes: I48.91 - Unspecified atrial fibrillation Procedures cardiac cath followed by mini AVR CBC/BMP: 12/09/1661612/09/16616 PE at Discharge unlabored breathing no resp distress Hospital Course pt was admitted, underwent cardiac cath and found to have severe w/ no coronary thrombus obstruction. Underwent AVR successfully, developed sustained afib, started on amiodarone and anticoagulation. tolerated po intake well. has met maximal benefit from hospitalization and is clinically stable for discharge. discussed extensively with the patient that he wants to exercise fall precautions due to being on blood thinners and that he would have his blood checked periodically including at home and at his PCPs office to adjust Coumadin dosing. Pt Condition on Discharge: Stable Discharge Disposition: Disch w/ Home Health Serv Discharge Instructions DIET: Follow Instructions for: Heart Healthy Diet Follow up Referrals: Cardiology - 4 Weeks with Mera Bueno MD PCP Follow-up Surgical with Cornel Millan MD New Orders: PT/INR - 2-3 Days New Medications: Amiodarone (Amiodarone) 200 Mg Tab 400 MG PO TID for heart rhythm, #60 TAB 400mg tid x 3 days , then 400mg bid x 3 days , then 200mg bid x 3 days , then 200mg daily Aspirin (Aspirin Low Strength) 81 Mg Chew 81 MG PO DAILY for Blood Clot Prevention, #100 EA 2 Refills Carvedilol (Coreg) 6.25 Mg Tab 6.25 MG PO BID for Blood Pressure Management, #60 TAB 2 Refills Docusate Sodium (Dok) 100 Mg Cap 100 MG PO BID for Constipation, #60 CAP 1 Refill Hydrocodone-Acetaminophen (Hydrocodone-Acetaminophen) 5-325 mg Tab 1 TAB PO Q6HR PRN for PAIN SCALE 1 TO 5, #40 TAB 0 Refills Multiple Vitamins W/ Minerals (Thera M Plus) 1 Tab 1 TAB PO DAILY for multi vitamin, #30 TAB 2 Refills Warfarin (Coumadin) 5 Mg Tab 5 MG PO DAILY@1600 for Blood Clot Prevention, #30 TAB 1 Refill check INR coumadin level on wednesday INR goal 2-3/ hol dofr INR > 3.5 Continued Medications: Pravastatin (Pravastatin) 10 Mg Tab Unknown Dose PO HS for Cholesterol Management, #30 TAB 0 Refills Myesha Manzo Dec 09, 2016 11:15 Mervin Arevalo MD Dec 09, 2016 13:07
[2016-12-09] MEDS ORDERED: ENOX30IN SQ (13:03)
== END 2016-12-09 14:50 | disposition home health service (06) | DRG 216 ==
LOC: PHED 11:22 → HDIC 12:53 → HCIS 17:50 → HCVR 11-30 09:08 → HCIS 11-30 11:19 → HCPC 12-04 10:37 → HCVR 12-04 14:20 → HCIN 12-06 16:06
PROVIDERS: ADMIT Hospitalist; ATTEND Hospitalist
PROC: 4A023N7 Measurement of Cardiac Sampling and Pressure, Left Heart, Percutaneous Approach (ICD-10-PCS; 2016-11-24)
PROC: B2111ZZ Fluoroscopy of Multiple Coronary Arteries using Low Osmolar Contrast (ICD-10-PCS; 2016-11-24)
PROC: 5A1221Z Performance of Cardiac Output, Continuous (ICD-10-PCS; 2016-12-04)
PROC: B246ZZ4 Ultrasonography of Right and Left Heart, Transesophageal (ICD-10-PCS; 2016-12-04)
PROC: 3E0T3BZ Introduction of Anesthetic Agent into Peripheral Nerves and Plexi, Percutaneous Approach (ICD-10-PCS; 2016-12-04)
PROC: 02RF08Z Replacement of Aortic Valve with Zooplastic Tissue, Open Approach (ICD-10-PCS; principal; 2016-12-04 07:57)
DX: I21.4 Non-ST elevation (NSTEMI) myocardial infarction (principal); R57.0 Cardiogenic shock; I48.91 Unspecified atrial fibrillation; L76.02 Intraoperative hemorrhage and hematoma of skin and subcutaneous tissue complicating other procedure; I97.89 Other postprocedural complications and disorders of the circulatory system, not elsewhere classified; I08.0 Rheumatic disorders of both mitral and aortic valves; I25.119 Atherosclerotic heart disease of native coronary artery with unspecified angina pectoris; I10 Essential (primary) hypertension; E78.00 Pure hypercholesterolemia, unspecified; Z86.010 Personal history of colon polyps; Z80.0 Family history of malignant neoplasm of digestive organs; R39.15 Urgency of urination; Z53.8 Procedure and treatment not carried out for other reasons; K59.00 Constipation, unspecified
CPT/HCPCS: 36430; 71010; 71250; 76536; 76937; 80048; 80053; 80061; 80076; 81001; 82550; 82552; 82948; 83036; 83735; 84100; 84439; 84443; 84484; 85002; 85007; 85025; 85027; 85610; 85730; 86850; 86900; 86901; 86920; 87015; 87070; 87102; 87116; 87176; 87205; 87206; 87641; 88305; 88311; 93005; 93306; 93318; 93458; 93880; 94002; 94010; 94150; 94640; 94664; 94667; 94668; C1769; C1893; C9290; J0131; J0171; J0282; J0461; J0690; J1100; J1644; J1650; J1815; J1817; J1940; J2150; J2250; J2270; J2370; J2405; J2720; J3010; J3370; J3475; J3480; J7030; J7060; J7120; P9016; P9045; P9047; Q9967